=== PATIENT | female | born 1935 | race Hispanic/Latino ===

== ENCOUNTER 2016-12-22 19:50 | Inpatient (IN) | payer MEDICARE, OTHER ==
[2016-12-22 20:04] VITALS: BMI 32.8
[2016-12-22] MEDS ORDERED: Morphine 2 mg/ml ISec ONE (20:15)
[2016-12-22] MEDS ORDERED: Morphine 2 mg/ml ISec IVP STA ×2 (20:16→22:24)
[2016-12-22] MEDS: Sodium Chloride 0.9% 1,000 ML IV SCH (20:24)
--- NOTE | 2016-12-22 20:27 | ED PDOC ---
Arrival/HPI - General Chief Complaint: Back Pain Time Seen by Provider: 12/22/16 19:59 Historian: Patient - History of Present Illness Narrative History of Present Illness (Text): 12/22/16 20:23 Jazmyne Lauren is a 81 year old female, whose past medical history includes utero-vaginal prolapse, UTI, hypertension and hypothyroidism, presents to the emergency department for evaluation of intermittent left flank pain. Describes quality as a twisting sensation. Denies any history of back trauma, but states that she fell down two days prior sustaining abrasions to right knee and palomino. Denies fever, chills, headache, dizziness, chest pain, shortness of breath, nausea, vomiting, diarrhea, urinary symptoms or any other complaints at this time. Time/Duration: < week Symptom Onset: Gradual Symptom Course: Unchanged Severity Level: Mild Activities at Onset: Light Context: Home Past Medical History - Provider Review Nursing Documentation Reviewed: Yes - Infectious Disease Hx of Infectious Diseases: None - Tetanus Immunization Tetanus Immunization: Unknown - Cardiac Hx Cardiac Disorders: Yes - Pulmonary Hx Respiratory Tract Infection: Yes (chronic upper respiratory tract infection) - Neurological Hx Migraine: Yes - HEENT Hx HEENT Disorder: No - Renal Hx Renal Disorder: No - Endocrine/Metabolic Hx Hypothyroidism: Yes - Hematological/Oncological Other/Comment: "low immune system", fibroid tumors and fibrocystic breasts - Integumentary Hx Dermatological Disorder: No - Musculoskeletal/Rheumatological Hx Arthritis: Yes Hx Falls: No - Gastrointestinal Hx Gastrointestinal Disorders: Yes Hx Diverticulitis: Yes Hx Gastroesophageal Reflux: Yes Other/Comment: colitis, atrial gastritis, duodenitis, spasmatic colon - Genitourinary/Gynecological Hx Genitourinary Disorders: Yes Hx Urinary Tract Infection: Yes - Psychiatric Hx Psychophysiologic Disorder: No Hx Substance Use: No - Surgical History Hx Appendectomy: Yes (1951) Hx Cholecystectomy: Yes (1994) Other/Comment: tonsillectomy 1937 - Anesthesia Hx Anesthesia: Yes Hx Anesthesia Reactions: No Hx Malignant Hyperthermia: No - Suicidal Assessment Feels Threatened In Home Enviroment: No Family/Social History - Physician Review Nursing Documentation Reviewed: Yes Family/Social History: No Known Family HX Smoking Status: Never Smoked Hx Alcohol Use: No Hx Substance Use: No Hx Substance Use Treatment: No Allergies/Home Meds Allergies/Adverse Reactions: Allergies amitriptyline Allergy (Verified 12/22/16 20:13) RASH aspirin Allergy (Verified 12/22/16 20:13) RASH cephalexin Allergy (Verified 12/22/16 20:13) RASH ciprofloxacin Allergy (Verified 12/22/16 20:13) RASH gabapentin Allergy (Verified 12/22/16 20:13) RASH lactase [From Dairy Aid] Allergy (Verified 12/22/16 20:13) DIARRHEA omeprazole Allergy (Verified 12/22/16 20:13) RASH oxycodone Allergy (Verified 12/22/16 20:13) NAUSEA Penicillins Allergy (Verified 12/22/16 20:13) URTICARIA PORK Allergy (Verified 10/02/14 23:39) unknown shellfish derived Allergy (Verified 12/22/16 20:13) RASH tolterodine tartrate [From Detrol] Allergy (Verified 12/22/16 20:13) RASH tomato Allergy (Verified 12/22/16 20:13) RASH bee venom Allergy (Uncoded 12/22/16 20:13) RASH dust Allergy (Uncoded 10/02/14 23:39) unknown dyes Allergy (Uncoded 10/02/14 23:39) unknown grass Allergy (Uncoded 10/02/14 23:39) unknown mold Allergy (Uncoded 10/02/14 23:39) unknown nuts Allergy (Uncoded 12/22/16 20:13) ANGIOEDEMA pollen Allergy (Uncoded 10/02/14 23:39) unknown ragweed Allergy (Uncoded 10/02/14 23:39) unknown tape Allergy (Uncoded 12/22/16 20:13) RASH trees Allergy (Uncoded 10/02/14 23:39) unknown wool Allergy (Uncoded 10/02/14 23:39) RASH Home Medications: Home Meds Medication Instructions Recorded Confirmed Hydrochlorothiazide [HCTZ] 25 mg PO DAILY 10/02/14 03/30/15 Levothyroxine Sodium [Levothroid] 0.05 mg PO DAILY 10/02/14 03/30/15 Famotidine [Pepcid AC] 1 tab PO DAILY PRN 03/30/15 03/30/15 Review of Systems - Physician Review All systems were reviewed & negative as marked: Yes - Review of Systems Constitutional: Normal. absent: Fatigue, Fevers Respiratory: Normal. absent: SOB, Cough Cardiovascular: Normal. absent: Chest Pain Gastrointestinal: Normal. absent: Diarrhea, Nausea, Vomiting Musculoskeletal: Back Pain (left flank pian ), Other (right knee and palomino abrasions ) Psychiatric: Normal Physical Exam Vital Signs Reviewed: Yes Vital Signs Temp Pulse Resp BP 12/22/16 19:51 98.2 F 67 18 142/65 Temperature: Afebrile Blood Pressure: Normal Pulse: Regular Respiratory Rate: Normal Appearance: Positive for: Well-Appearing, Non-Toxic, Comfortable Pain Distress: None Mental Status: Positive for: Alert and Oriented X 3 - Systems Exam Head: Present: Atraumatic, Normocephalic Pupils: Present: PERRL Extroacular Muscles: Present: EOMI Conjunctiva: Present: Normal Neck: Present: Normal Range of Motion. No: MIDLINE TENDERNESS, Paraspinal Tenderness Respiratory/Chest: Present: Clear to Auscultation, Good Air Exchange. No: Respiratory Distress, Accessory Muscle Use Cardiovascular: Present: Regular Rate and Rhythm, Normal S1, S2. No: Murmurs Abdomen: Present: Normal Bowel Sounds. No: Tenderness, Distention, Peritoneal Signs Back: Present: CVA Tenderness (left cva tenderness ), Other (No dorsal spinal tenderness ). No: Midline Tenderness Upper Extremity: Present: Normal Inspection. No: Cyanosis, Edema Lower Extremity: Present: Normal Inspection, Other (healed abrasion to right lower palomino ). No: Edema Neurological: Present: GCS=15, CN II-XII Intact, Speech Normal Skin: Present: Warm, Dry, Normal Color. No: Rashes Psychiatric: Present: Alert, Oriented x 3, Normal Insight, Normal Concentration Medical Decision Making ED Course and Treatment: 12/22/16 20:32 Impression: A 81 year old female who presents to the emergency room for evaluation of left flank pain. Plan: -- CT abdomen and pelvis -- EKG -- labs -- Chest X-ray -- Morphine -- IV fluids -- Zofran -- Urinalysis -- Reassess and disposition Progress Notes: Reviewed EKG, sinus rhythm at [address]pm[address] LAHB. Non-specific ST/T wave changes. 12/22/16 21:05 Reviewed CXR, shows no active disease. 12/22/16 21:59 Reviewed radiology, CT Abdomen and Pelvis shows: Diverticulosis of the colon present. 12/22/16 23:[address] Ambrose, who is aware and agrees with plan. Accepts pt in to her service. Pt will go to [facility] observation for pyelonephritis. Requests Dr. Simon on consult. Pt is no acute distress. Discussed results and hospital observation with pt, who is aware and verbalizes understanding. - Lab Interpretations Lab Results: 12/22/16 20:25 12/22/16 20:25 Lab Results 12/22/16 22:40: Urine Color Yellow, Urine Appearance Clear, Urine pH 7.0, Ur Specific [place] 1.010, Urine Protein Negative, Urine Glucose (UA) Negative, Urine Ketones Negative, Urine Blood Trace-intact H, Urine Nitrate Positive H, Urine Bilirubin Negative, Urine Urobilinogen 0.2, Ur Leukocyte Esterase Moderate H, Urine RBC 5 - 10, Urine WBC 10 - 15, Ur Epithelial Cells Many, Urine Bacteria Small 12/22/16 20:25: WBC 6.8, RBC 4.54, Hgb 13.6, Hct 40.6, MCV 89.4, MCH 30.0, MCHC 33.5, RDW 13.8, Plt Count 254, MPV 10.6, PT 11.1, INR 1.03, APTT 27.5, Sodium 137, Potassium 3.9, Chloride 99, Carbon Dioxide 28, Anion Gap 14, BUN 28 H, Creatinine 1.1, Est GFR ( Amer) 57, Est GFR (Non-Af Amer) 47, Random Glucose 114 H, Calcium 10.0, Total Bilirubin 0.6, AST 27, ALT 19, Alkaline Phosphatase 109, Total Protein 8.5 H, Albumin 4.3, Globulin 4.2, Albumin/ Globulin Ratio 1.0 L 12/22/16 20:04: POC Glucose (mg/dL) 105 I have reviewed the lab results: Yes - RAD Interpretation Narrative RAD Interpretations (Text): CT Abdomen and Pelvis shows: Lower thorax: Dependent changes in the lung bases. Diffuse interstitial thickening present. ABDOMEN: Liver: Unremarkable for noncontrasted exam a. Gallbladder and bile ducts: Cholecystectomy clips. No ductal dilation. Pancreas: . No ductal dilation. Spleen: . No splenomegaly. Adrenals: . No mass. Kidneys and ureters: No obstructing stones. No hydronephrosis. Hypodensities in the kidneys continue present this total incompletely characterized. Stomach and bowel: Diverticulosis of the colon present. Appendix: No findings to suggest acute appendicitis. PELVIS: Bladder: . No stones. Reproductive: Unremarkable as visualized. ABDOMEN and PELVIS: Intraperitoneal space: Mild stranding of the upper mid mesenteric root, nonspecific. No free air. No significant fluid collection. fat Containing inguinal hernia. Bones/joints: No acute fracture. No dislocation. Vasculature: There are calcifications of the aorta present. No abdominal aortic aneurysm. Lymph nodes: Scattered mesenteric lymph nodes. IMPRESSION: Diverticulosis of the colon present. Radiology Orders: 12/22/16 20:14 ABD & PELVIS W/O PO OR IV CONT [CT] Stat 12/22/16 20:15 CHEST PORTABLE [RAD] Stat Group Product Manager: ED Physician - EKG Interpretation Interpreted by ED Physician: Yes Type: 12 lead EKG - Medication Orders Current Medication Orders: Acetaminophen (Tylenol 325mg Tab) 650 mg PO Q4H PRN PRN Reason: Pain, Mild (1-3) Stop: 12/23/16 10:00 Sodium Chloride (Sodium Chloride 0.9%) 1,000 mls @ 100 mls/hr IV .Q10H ROBERT Last Admin: 12/22/16 20:24 Dose: 100 MLS/HR eMAR Start Stop Document 12/22/16 20:24 WALTER (Rec: 12/22/16 20:24 WALTER [id number]) Intravenous Solution Start Date 12/22/16 Start Time 20:24 Aztreonam (Azactam 1 Gm) 100 mls @ 100 mls/hr IVPB STAT STA PRN Reason: Protocol Stop: 12/23/16 00:40 Discontinued Medications Sodium Chloride (Sodium Chloride 0.9%) 1,000 mls @ 999 mls/hr IV .Q1H1M STA Stop: 12/22/16 22:42 Last Admin: 12/22/16 22:27 Dose: 999 MLS/HR eMAR Start Stop Document 12/22/16 22:27 WALTER (Rec: 12/22/16 22:27 WALTER [id number]) Intravenous Solution Start Date 12/22/16 Start Time 22:27 End Date 12/22/16 End time 23:27 Total Infusion Time 60 Morphine Sulfate (Morphine) Confirm Administered Dose 2 mg .ROUTE .STK-MED ONE Stop: 12/22/16 20:16 Last Admin: 12/22/16 20:24 Dose: Morphine Sulfate (Morphine) 2 mg IVP STAT STA Stop: 12/22/16 20:17 Last Admin: 12/22/16 20:23 Dose: 2 MG MAR Pain Assessment Document 12/22/16 20:23 WALTER (Rec: 12/22/16 20:24 WALTER [id number]) Pain Reassessment Is this a pain reassessment? No IVP Administration Document 12/22/16 20:23 WALTER (Rec: 12/22/16 20:24 WALTER [id number]) Charges for Administration # of IVP Administrations 1 Morphine Sulfate (Morphine) 2 mg IVP STAT STA Stop: 12/22/16 22:25 Last Admin: 12/22/16 22:26 Dose: 2 MG MAR Pain Assessment Document 12/22/16 22:26 WALTER (Rec: 12/22/16 22:26 WALTER [id number]) Pain Reassessment Is this a pain reassessment? Yes IVP Administration Document 12/22/16 22:26 WALTER (Rec: 12/22/16 22:26 WALTER [id number]) Charges for Administration # of IVP Administrations 1 Ondansetron HCl (Zofran Inj) 4 mg IVP ONCE ONE Stop: 12/22/16 20:17 Last Admin: 12/22/16 20:28 Dose: 4 MG IVP Administration Document 12/22/16 20:28 WALTER (Rec: 12/22/16 20:28 WALTER [id number]) Charges for Administration # of IVP Administrations 1 - Scribe Statement The provider has reviewed the documentation as recorded by the Yaya Umana Provider Attestation: All medical record entries made by the Dylanibjermaine were at my direction and personally dictated by me. I have reviewed the chart and agree that the record accurately reflects my personal performance of the history, physical exam, medical decision making, and the department course for this patient. I have also personally directed, reviewed, and agree with the discharge instructions and disposition. Disposition/Present on Arrival - Present on Arrival Any Indicators Present on Arrival: No History of DVT/PE: No History of Uncontrolled Diabetes: No Urinary Catheter: No History of Decub. Ulcer: No History Surgical Site Infection Following: None - Disposition Have Diagnosis and Disposition been Completed?: Yes Diagnosis: Flank pain, Pyelonephritis Disposition: HOSPITALIZED Disposition Time: 00:10 Patient Plan: Observation Patient Problems: Current Active Problems Problem Status Diagnosed Flank pain Acute Pyelonephritis Acute Condition: GOOD Referrals: Sonal Mercado DO [Primary Care Provider] - Follow up with primary
[2016-12-22 21:17] LABS: BILIRUBIN,TOTAL 0.6 mg/dL (0.2-1.3); POTASSIUM 3.9 mmol/L (3.6-5.0); TOTAL PROTEIN 8.5 g/dL (5.8-8.3)
[2016-12-22 21:22] LABS: HEMATOCRIT 40.6 % (36.0-48.0); MEAN CELL VOLUME 89.4 fL (80.0-105.0); MEAN CORPUSCULAR HGB CONC 33.5 g/dl (31.0-37.0); MEAN PLATELET VOLUME 10.6 fl (7.0-11.0); RED CELL DISTRIBUTION WIDTH 13.8 % (11.5-14.5); WHITE BLOOD COUNT 6.8 10^3/ul (4.5-11.0)
[2016-12-22 21:38] LABS: INR 1.03 (0.93-1.08); PARTIAL THROMBOPLASTIN TIME 27.5 Seconds (23.7-30.8)
[2016-12-22] MEDS ORDERED: Sodium Chloride 0.9% 1,000 ML IV STA (21:42)
[2016-12-22 23:03] LABS: URINE BILIRUBIN NEGATIVE (NEGATIVE); URINE BLOOD TRACE-INTACT (NEGATIVE); URINE GLUCOSE (UA) NEGATIVE (NEGATIVE); URINE KETONE NEGATIVE (NEGATIVE); URINE LEUKOCYTE ESTERASE MODERATE Leu/uL (NEGATIVE); URINE PROTEIN NEGATIVE mg/dL (<30 mg/dL); URINE UROBILINOGEN 0.2 E.U./dL (<1 E.U./dL)
[2016-12-22 23:04] LABS: URINE APPEARANCE CLEAR (CLEAR); URINE COLOR YELLOW (YELLOW)
[2016-12-22 23:06] LABS: URINE BACTERIA SMALL (NEG); URINE EPITHELIAL CELLS MANY /hpf (0-5)
[2016-12-22] MEDS ORDERED: Aztreonam 1 Gm in NS 100mL 100 ML IVPB STA (23:41)
[2016-12-23] MEDS ORDERED: Aztreonam 1 Gm in NS 100mL 100 ML IVPB STA (00:36)
[2016-12-23] MEDS: Aztreonam 1 Gm in NS 100mL 100 ML IVPB SCH ×3 (06:49→21:37)
[2016-12-23] MEDS ORDERED: FAMOTIDINE PO PRN (07:10)
--- NOTE | 2016-12-23 07:27 | CT ---
PROCEDURE: CT Abdomen and Pelvis without intravenous or oral contrast HISTORY: left flank pain Relevant medical history: Bladder prolapse originally seen on the prior CT scan 10/02/2014. COMPARISON: 10/02/2014. TECHNIQUE: Technique Contiguous axial images of the abdomen and pelvis without intravenous or oral contrast. Radiation dose: Total exam DLP = mGy-cm. FINDINGS: LOWER THORAX: Unremarkable. LIVER: Unremarkable. GALLBLADDER AND BILE DUCTS: Status post cholecystectomy. No abnormality is seen in the gallbladder fossa. PANCREAS: Unremarkable. No ductal dilatation. SPLEEN: Unremarkable. No splenomegaly. ADRENALS: Unremarkable. KIDNEYS AND URETERS: Unremarkable. No hydronephrosis. BLADDER: Pessary device within the urinary bladder. No evidence of prolapse on the current study. REPRODUCTIVE: Unremarkable. APPENDIX: Unremarkable. Normal appendix. STOMACH AND BOWEL: Unremarkable. No obstruction. No gross mural thickening. Diverticulosis without an acute inflammatory component or other associated pathologic process. PERITONEUM: Unremarkable. No significant fluid collection. No free air. LYMPH NODES: Unremarkable. No enlarged lymph nodes. VASCULATURE: Unremarkable. No aortic aneurysm. BONES: No acute fracture. Scoliosis, secondary degenerative change at multiple levels. OTHER FINDINGS: None . IMPRESSION: No acute findings related to/accounting for the clinical presentation. No significant change compared to the prior study other than resolution of urinary bladder prolapse apparent on prior study Concordant results (preliminary interpretation) provided by [employer]. Procedure Completed: 21:13. Preliminary ([facility]) Report: Dictated and Authenticated: 21:57. Final Interpretation: 07:25. December 23, 2016.
--- NOTE | 2016-12-23 08:36 | RAD ---
HISTORY: back pain COMPARISON: No prior. FINDINGS: LUNGS: No active pulmonary disease. PLEURA: No significant pleural effusion identified, no pneumothorax apparent. CARDIOVASCULAR: Normal. OSSEOUS STRUCTURES: No significant abnormalities. VISUALIZED UPPER ABDOMEN: Normal. OTHER FINDINGS: None. IMPRESSION: No active disease.
[2016-12-23] MEDS: Sodium Chloride 0.9% 1,000 ML IV SCH (09:50)
[2016-12-23] MEDS: Levothyroxine 50 MCG TAB PO SCH (09:50)
[2016-12-23] MEDS ORDERED: Non Formulary Medication (Hydrochlorothiazide [Hctz] 25 MG) PO SCH (10:00)
[2016-12-23] MEDS ORDERED: Sodium Chloride 0.9% 1,000 ML IV SCH ×2 (11:32→21:53)
--- NOTE | 2016-12-23 13:52 | CARD ---
APPROVED REPORT EKG Measurement Heart [id number] <Conclusion> Sinus rhythm Pulmonary disease pattern Left anterior fascicular block Abnormal ECG
[2016-12-23] MEDS: metroNIDAZOLE IV 500 mg/100 ml 100 ML IVPB SCH ×2 (14:05→22:32)
--- NOTE | 2016-12-23 15:37 | CP.PCM.CON ---
History of Present Illness - History of Present Illness History of Present Illness: 81 year old female with PMH of uterine prolapse, history of UTI's, HTN, hypothyroidism, obesity with BMI 33 came in to the ED complaning of left back and flank pain since yesterday. She states that the pain is from the bottom of her left scapula to the the flank area, and it feels like "something is twisting." She described it as one of the worst pains of her life. She did have a fall about 2 days ago but mostly hit her right leg on the floor. She has occasional urinary frequency, no burning sensation on urination, no nausea or vomiting, no chest pain, no SOB, no fever or chills, no headache or dizziness, no rhinorrhea, no cough, no sore throat, no chest palpitations. She denies known ill contacts and has not traveled outside of [place] in the past 3 months. Infectious Diseases consult is requested to further evaluate and manage. Review of Systems - Review of Systems All systems: reviewed and no additional remarkable complaints except (as per HPI ) Past Patient History - Infectious Disease Hx of Infectious Diseases: None - Tetanus Immunizations Tetanus Immunization: Unknown - Past Social History Smoking Status: Never Smoked - CARDIAC Hx Cardiac Disorders: Yes - PULMONARY Hx Respiratory Tract Infection: Yes (chronic upper respiratory tract infection) - NEUROLOGICAL Hx Migraine: Yes - HEENT Hx HEENT Problems: No - RENAL Hx Chronic Kidney Disease: No - ENDOCRINE/METABOLIC Hx Hypothyroidism: Yes - HEMATOLOGICAL/ONCOLOGICAL Other/Comment: "low immune system", fibroid tumors and fibrocystic breasts - INTEGUMENTARY Hx Dermatological Problems: No - MUSCULOSKELETAL/RHEUMATOLOGICAL Hx Falls: No - GASTROINTESTINAL Hx Gastrointestinal Disorders: Yes Hx Diverticulitis: Yes Hx Gastroesophageal Reflux: Yes Other/Comment: colitis, atrial gastritis, duodenitis, spasmatic colon - GENITOURINARY/GYNECOLOGICAL Hx Genitourinary Disorders: Yes Hx Urinary Tract Infection: Yes - PSYCHIATRIC Hx Psychophysiologic Disorder: No Hx Substance Use: No - SURGICAL HISTORY Hx Appendectomy: Yes (1951) Hx Cholecystectomy: Yes (1994) Other/Comment: tonsillectomy 1937 - ANESTHESIA Hx Anesthesia: Yes Hx Anesthesia Reactions: No Hx Malignant Hyperthermia: No Meds Allergies/Adverse Reactions: Allergies Allergy/AdvReac Type Severity Reaction Status Date / Time amitriptyline Allergy RASH Verified 12/22/16 20:13 aspirin Allergy RASH Verified 12/22/16 20:13 cephalexin Allergy RASH Verified 12/22/16 20:13 ciprofloxacin Allergy RASH Verified 12/22/16 20:13 gabapentin Allergy RASH Verified 12/22/16 20:13 lactase [From Dairy Aid] Allergy DIARRHEA Verified 12/22/16 20:13 omeprazole Allergy RASH Verified 12/22/16 20:13 oxycodone Allergy NAUSEA Verified 12/22/16 20:13 Penicillins Allergy URTICARIA Verified 12/22/16 20:13 PORK Allergy unknown Verified 10/02/14 23:39 shellfish derived Allergy RASH Verified 12/22/16 20:13 tolterodine tartrate Allergy RASH Verified 12/22/16 20:13 [From Detrol] tomato Allergy RASH Verified 12/22/16 20:13 bee venom Allergy RASH Uncoded 12/22/16 20:13 dust Allergy unknown Uncoded 10/02/14 23:39 dyes Allergy unknown Uncoded 10/02/14 23:39 grass Allergy unknown Uncoded 10/02/14 23:39 mold Allergy unknown Uncoded 10/02/14 23:39 nuts Allergy ANGIOEDEMA Uncoded 12/22/16 20:13 pollen Allergy unknown Uncoded 10/02/14 23:39 ragweed Allergy unknown Uncoded 10/02/14 23:39 tape Allergy RASH Uncoded 12/22/16 20:13 trees Allergy unknown Uncoded 10/02/14 23:39 wool Allergy RASH Uncoded 10/02/14 23:39 - Medications Medications: Current Medications Acetaminophen (Tylenol 325mg Tab) 650 mg PO Q4H PRN PRN Reason: Pain, Mild (1-3) Stop: 12/23/16 10:00 Sodium Chloride (Sodium Chloride 0.9%) 1,000 mls @ 100 mls/hr IV .Q10H ROBERT Last Admin: 12/22/16 20:24 Dose: 100 mls/hr Physical Exam - Constitutional Appears: Non-toxic, No Acute Distress - Head Exam Head Exam: NORMAL INSPECTION - ENT Exam ENT Exam: Mucous Membranes Moist - Neck Exam Neck exam: Negative for: Lymphadenopathy, Meningismus - Respiratory Exam Respiratory Exam: Decreased Breath Sounds - Cardiovascular Exam Cardiovascular Exam: +S1, +S2 - GI/Abdominal Exam GI & Abdominal Exam: Soft. absent: Tenderness - Back Exam Back exam: absent: CVA tenderness (L), CVA tenderness (R) Results - Vital Signs Recent Vital Signs: Last Vital Signs Temp 97.7 F 12/23/16 01:41 Pulse 68 12/23/16 01:41 Resp 18 12/23/16 01:41 BP 110/86 12/23/16 01:41 Pulse Ox 98 12/23/16 01:41 - Labs Result Diagrams: 12/22/16 20:25 12/22/16 20:25 Assessment & Plan - Assessment and Plan (Free Text) Plan: Assessment consider urinary tract infection, R/O nephrolithiasis, R/O transient sigmoid volvulus uterine prolapse history of UTI's HTN hypothyroidism obesity with BMI [address] abdomen and pelvis which did not show acute pathology; will monitor clinically, follow up blood, and urine cx and started patient on Azactam and Flagyl
--- NOTE | 2016-12-23 22:57 | HP ---
HISTORY OF PRESENT ILLNESS: The patient is 81 years old, known to me from previous admissions. The patient states yesterday she developed pain in her left mid back area, just below the wing of her mo nitoring of her scapula. Initially, she ignored it, could be back pain. She felt the pain squeezing and intermittent but by the late afternoon it got worse, so she came to Emergency Room for further e valuation. She says she did have chills, but no fever, she took 3 to 4 blankets but was unable to b reak her chills. She did have flank pain radiating towards her left flank. Denies any nausea. Does complain of decreased appetite. Did have some odor in the urine, but no hematuria, no diarrhea. PAST MEDICAL HISTORY: Significant for: 1. Hypertension. 2. Morbid obesity. 3. Hypothyroidism. 4. History of uterine prolapse. 5. Hyperlipidemia.. ALLERGIES: SHE IS ALLERGIC TO MULTIPLE MEDICATIONS INCLUDING 1. AMITRIPTYLINE. 2. ASPIRIN. 3. KEFLEX. 4. CIPROFLOXACIN. 5. GABAPENTIN. 6. LACTOSE. 7. PENICILLIN. 8. PORK. 9. SHELLFISH. 10. DETROL. 11. TOMATOES. 12. BEE VENOM. 13. DUST. 14. DYES. 15. GRASS. 16. MOLD. 17. NUTS. 18. POLLEN. 19. RAGWEED. 20. TAPE. 21. TREE MEDICATION AT HOME: She is on levothyroxine 50 mcg daily, hydrochlorothiazide 25 daily, famotidine 2 0 mg twice a day. SOCIAL HISTORY: She lives with her son who is in a 2-family house, and she lives downstairs. REVIEW OF SYSTEMS: Significant for back pain, although is feeling better since she came in. PHYSICAL EXAMINATION: GENERAL: She is awake and alert, communicative. VITAL SIGNS: She is afebrile, pulse 67, respirations 18, blood pressure 133/62. LUNGS: Bilateral fair airflow, no rhonchi or crackle. HEART: S1, S2 audible. No murmur. ABDOMEN: Soft, obese, nontender, no rebound, no guarding. NEUROLOGIC: She is awake, alert, and communicative. LABORATORY DATA: WBC 6.8, hemoglobin 13, hematocrit 40, platelets 254. PT 11.1, INR 1.03, PTT 27.5. Sodium 137, potassium 3.9, chloride 99, CO2 28, BUN 28, creatinine 1.1, blood sugar 114. LFTs are within normal limits. Urine shows positive nitrites and moderate leukocytes, blood cultures are pend ing. She had CT scan of the abdomen and pelvis done that shows no acute finding related to her clini devin presentation; however, bladder shows pessary device within the urinary bladder. ASSESSMENT: 1. Pyelonephritis. 2. Urinary tract infection. 3. Degenerative disk disease. 4. Hypertension. 5. Hyperlipidemia. 6. Hypothyroidism. 7. Peptic ulcer disease. PLAN: Currently, the patient is on Azactam because of multiple allergies. She is on metronidazole. I will give her famotidine. Cut down her IV fluids to 50 mL per hour, since her oral intake is bett er. I will order follow up CBC and CMP in a.m. and adjust flow according to that. Norberto Ambrose MD cc: [id number] TT: 12/23/2016 22:56:41 ln
[2016-12-24] MEDS: metroNIDAZOLE IV 500 mg/100 ml 100 ML IVPB SCH (05:25)
[2016-12-24] MEDS: Aztreonam 1 Gm in NS 100mL 100 ML IVPB SCH ×3 (06:28→21:07)
[2016-12-24 06:55] LABS: BILIRUBIN,TOTAL 0.4 mg/dL (0.2-1.3); CALCIUM 8.6 mg/dL (8.4-10.5); POTASSIUM 4.1 mmol/L (3.6-5.0); TOTAL PROTEIN 6.6 g/dL (5.8-8.3)
[2016-12-24] MEDS: Levothyroxine 50 MCG TAB PO SCH (09:57)
--- NOTE | 2016-12-24 11:55 | PN ---
DATE: 12/24/2016 SUBJECTIVE: The patient has no complaints of any chest pain or shortness of breath, no headaches or dizziness. PHYSICAL EXAMINATION: VITAL SIGNS: Temperature is 97.7, pulse of 59, blood pressure 135/63, respirations 20, O2 saturation 94%. GENERAL: The patient comfortable, in no acute distress. HEENT: Anicteric sclerae. Moist mucosa. NECK: No JVD or adenopathy. CARDIAC: S1/S2. No murmurs. No rubs. Regular. RESPIRATORY: Clear to auscultation bilaterally. No wheezes, rales, or rhonchi. Good air entry. ABDOMEN: Bowel sounds are positive, soft, nontender, and nondistended. EXTREMITIES: No edema. Has 1+ pulses. ASSESSMENT: 1. Pyelonephritis. 2. Urinary tract infection. 3. Degenerative joint disease. 4. Hypertension. 5. Dyslipidemia. 6. Hypothyroidism. 7. Peptic ulcer disease. PLAN: The patient is currently on aztreonam because she has multiple allergies. She is on Synthroid for hypothyroidism. The patient has urine cultures that are positive for gram-negative rods. The f inal results are pending. She takes Tylenol as needed for pain. She is on a liquid diet. Joshua White MD cc: [id number] TT: 12/24/2016 11:54:26 Confirmation # [id number] Dictation # [id number]
--- NOTE | 2016-12-24 17:05 | CP.PCM.PN ---
Subjective - Date & Time of Evaluation Date of Evaluation: 12/24/16 Time of Evaluation: 11:20 - Subjective Subjective: Patient is comfortable, not in distress, no fevers, no flank pain currently. Objective - Vital Signs/Intake and Output Vital Signs (last 24 hours): Temp Pulse Resp BP Pulse Ox 97.7 F 69 20 135/63 94 L 12/24/16 07:30 12/24/16 07:30 12/24/16 07:30 12/24/16 07:30 12/24/16 07:30 Intake and Output: 12/24/16 12/24/16 06:59 18:59 Intake Total 240 Balance 240 - Medications Medications: Current Medications Acetaminophen (Tylenol 325mg Tab) 650 mg PO Q6H PRN PRN Reason: Headache Last Admin: 12/23/16 17:03 Dose: 650 mg Famotidine (Pepcid) 20 mg PO DAILY PRN PRN Reason: GI DISTRESS Aztreonam (Azactam 1 Gm) 100 mls @ 100 mls/hr IVPB Q8 [facility]ERT PRN Reason: Protocol Stop: 12/30/16 06:31 Last Admin: 12/24/16 06:28 Dose: 100 mls/hr Levothyroxine Sodium (Synthroid) 50 mcg PO DAILY [facility]ERT Last Admin: 12/23/16 09:50 Dose: 50 mcg - Labs Labs: 12/24/16 04:30 PT 11.1 Seconds (9.9-11.8) 12/22/16 20:25 INR 1.03 (0.93-1.08) 12/22/16 20:25 APTT 27.5 Seconds (23.7-30.8) 12/22/16 20:25 - Constitutional Appears: Non-toxic, No Acute Distress - Head Exam Head Exam: NORMAL INSPECTION - ENT Exam ENT Exam: Mucous Membranes Moist - Neck Exam Neck Exam: absent: Lymphadenopathy, Meningismus - Respiratory Exam Respiratory Exam: Decreased Breath Sounds - Cardiovascular Exam Cardiovascular Exam: +S1, +S2 - GI/Abdominal Exam GI & Abdominal Exam: Soft. absent: Tenderness Assessment and Plan - Assessment and Plan (Free Text) Plan: Assessment consider urinary tract infection, with no evidence of nephrolithiasis uterine prolapse history of UTI's HTN hypothyroidism obesity with BMI [address] abdomen and pelvis which did not show acute pathology; continue Azactam (day 2) pending identification and sensitivities of the gram negative bacilli in the urine Will follow clinically
[2016-12-25] MEDS: Aztreonam 1 Gm in NS 100mL 100 ML IVPB SCH ×3 (05:34→21:18)
[2016-12-25] MEDS: Levothyroxine 50 MCG TAB PO SCH (10:01)
[2016-12-25] MEDS: POLYETHYLENE GLYCOL 3350 17 GM/Dose PACKET PO SCH (13:32)
--- NOTE | 2016-12-25 16:49 | CP.PCM.PN ---
Subjective - Date & Time of Evaluation Date of Evaluation: 12/25/16 Time of Evaluation: 12:05 - Subjective Subjective: Patient is comfortable on a chair, no fevers, no diarrhea, not in distress, no flank pain currently although the left side is still a little sore. Objective - Vital Signs/Intake and Output Vital Signs (last 24 hours): Temp Pulse Resp BP Pulse Ox 97.7 F 65 20 129/74 95 12/25/16 07:30 12/25/16 07:30 12/25/16 07:30 12/25/16 07:30 12/25/16 07:30 Intake and Output: 12/25/16 12/25/16 06:59 18:59 Intake Total 240 Balance 240 - Medications Medications: Current Medications Acetaminophen (Tylenol 325mg Tab) 650 mg PO Q6H PRN PRN Reason: Headache Last Admin: 12/24/16 15:00 Dose: 650 mg Docusate Sodium (Colace) 100 mg PO BID ROBERT Famotidine (Pepcid) 20 mg PO DAILY PRN PRN Reason: GI DISTRESS Aztreonam (Azactam 1 Gm) 100 mls @ 100 mls/hr IVPB Q8 ROBERT PRN Reason: Protocol Stop: 12/30/16 06:31 Last Admin: 12/25/16 05:34 Dose: 100 mls/hr Levothyroxine Sodium (Synthroid) 50 mcg PO DAILY [facility] Last Admin: 12/25/16 10:01 Dose: 50 mcg Polyethylene Glycol (Miralax) 17 gm PO DAILY ROBERT - Labs Labs: PT 11.1 Seconds (9.9-11.8) 12/22/16 20:25 INR 1.03 (0.93-1.08) 12/22/16 20:25 APTT 27.5 Seconds (23.7-30.8) 12/22/16 20:25 - Constitutional Appears: Non-toxic, No Acute Distress - Head Exam Head Exam: NORMAL INSPECTION - Neck Exam Neck Exam: absent: Lymphadenopathy, Meningismus - Respiratory Exam Respiratory Exam: Decreased Breath Sounds - Cardiovascular Exam Cardiovascular Exam: +S1, +S2 - GI/Abdominal Exam GI & Abdominal Exam: Soft. absent: Tenderness Assessment and Plan - Assessment and Plan (Free Text) Plan: Assessment urinary tract infection with E. coli, with no evidence of nephrolithiasis uterine prolapse history of UTI's HTN hypothyroidism obesity with BMI [address] abdomen and pelvis which did not show acute pathology; continue Azactam (day 3) - we are unable to switch to PO alternatives because of her medicine allergies, and she has also explicitly stated that she has tried Bactrim before which has led to severe itching Will follow clinically
--- NOTE | 2016-12-25 19:17 | PN ---
DATE: 12/25/2016 SUBJECTIVE: The patient is an 81-year-old, seen and examined sitting in chair. Seems to be comforta ble. Complained of wound on the left palomino and uncomfortable. Otherwise, back pain is better. PHYSICAL EXAMINATION: VITAL SIGNS: She is afebrile, pulse 64, respirations 18, blood pressure 127/67. LUNGS: Bilateral good airflow. No rhonchi or crackle. HEART: S1, S2 audible. ABDOMEN: Soft, obese, nontender, no rebound, no guarding. NEUROLOGIC: She is awake and alert, communicative. Moves all extremities. Has generalized weakness . She has 2 scabbed ulcers on her left palomino. LABORATORY EXAMINATION: There is no new lab available today. However, her microbiology shows she cobb s Escherichia coli urinary tract infection. Blood cultures are negative. Escherichia coli is sensit yelena to Rocephin; however, she IS ALLERGIC TO PENICILLIN, so she will be maintained on Azactam. ASSESSMENT: 1. Escherichia coli urinary tract infection. 2. Pyelonephritis. 3. Degenerative disk disease. 4. Hypertension. 5. Hypothyroidism. 6. Morbid obesity. 7. History of uterine prolapse. PLAN: To continue her Azactam. Since there is no oral formulation available, the patient needs to c omplete her course of antibiotics, so I will request for TCU evaluation since tonight is going to be the 3rd night and she will be transferred to TCU after 3 overnights. Will reevaluate the patient in the a.m. Norberto Ambrose MD cc: [phone] TT: 12/25/2016 19:16:45 Confirmation # [id number] Dictation # [id number]
[2016-12-26] MEDS: Aztreonam 1 Gm in NS 100mL 100 ML IVPB SCH ×3 (05:44→21:22)
[2016-12-26] MEDS: Levothyroxine 50 MCG TAB PO SCH (09:59)
[2016-12-26] MEDS: POLYETHYLENE GLYCOL 3350 17 GM/Dose PACKET PO SCH (09:59)
[2016-12-26] MEDS ORDERED: TraMADol/Apap 37.5/325 mg Tab PO PRN (12:56)
--- NOTE | 2016-12-26 13:15 | DS ---
The patient is 17-vbeax[age]upy, seen and examined, sitting in chair, seems to be comfortable, still has back pain, no weakness, no numbness, no urinary symptoms, no nausea or vomiting, no diarrhea. PHYSICAL EXAMINATION: VITAL SIGNS: She is afebrile, pulse 77, respirations 18, blood pressure 129/62. LUNGS: Bilateral good airflow, no rhonchi or crackle. HEART: S1, S2 audible. No murmur. ABDOMEN: Soft, nontender, no rebound, no guarding. NEUROLOGIC: She does have paraspinal discomfort in the lower thoracic to upper lumbar area. LABORATORY EXAM: Her urine is positive for E. coli and she is sensitive to penicillin and derivative , but PATIENT IS ALLERGIC TO PENICILLIN. ASSESSMENT: 1. Escherichia coli urinary tract infection. 2. Back pain. 3. Degenerative disk disease. 4. Hypothyroidism. PLAN: TCU evaluation has been requested. The patient will probably be transferred today. We will c ontinue her on Azactam. She has scab on her right palomino that will require Bactroban gauze dressing. Dr. Garcia has been consulted for her back problem. I will order for Lidoderm patch for the back an d start her on tramadol as needed for pain. The patient will be transferred to TCU today once bed is available. Norberto Ambrose MD cc: [phone] TT: 12/26/2016 13:14:44 adán
[2016-12-26] MEDS: Lidocaine 5% Patch TD SCH (14:06)
--- NOTE | 2016-12-26 16:26 | CP.PCM.PN ---
Subjective - Date & Time of Evaluation Date of Evaluation: 12/26/16 Time of Evaluation: 11:10 - Subjective Subjective: Comfortable, not in distress, afebrile, less pain in the left flank, no diarrhea. Objective - Vital Signs/Intake and Output Vital Signs (last 24 hours): Temp Pulse Resp BP Pulse Ox 98.2 F 77 18 129/62 93 L 12/26/16 07:30 12/26/16 07:30 12/26/16 07:30 12/26/16 07:30 12/26/16 07:30 Intake and Output: 12/26/16 12/26/16 06:59 18:59 Intake Total 780 Balance 780 - Medications Medications: Current Medications Acetaminophen (Tylenol 325mg Tab) 650 mg PO Q6H PRN PRN Reason: Headache Last Admin: 12/24/16 15:00 Dose: 650 mg Docusate Sodium (Colace) 100 mg PO BID [facility] Last Admin: 12/26/16 09:59 Dose: 100 mg Famotidine (Pepcid) 20 mg PO DAILY PRN PRN Reason: GI DISTRESS Aztreonam (Azactam 1 Gm) 100 mls @ 100 mls/hr IVPB Q8 ROBERT PRN Reason: Protocol Stop: 12/30/16 06:31 Last Admin: 12/26/16 05:44 Dose: 100 mls/hr Levothyroxine Sodium (Synthroid) 50 mcg PO DAILY [facility] Last Admin: 12/26/16 09:59 Dose: 50 mcg Mupirocin (Bactroban Ointment) 0 gm TOP BID [facility] Last Admin: 12/26/16 09:59 Dose: 1 appl Polyethylene Glycol (Miralax) 17 gm PO DAILY [facility] Last Admin: 12/26/16 09:59 Dose: 17 gm - Labs Labs: PT 11.1 Seconds (9.9-11.8) 12/22/16 20:25 INR 1.03 (0.93-1.08) 12/22/16 20:25 APTT 27.5 Seconds (23.7-30.8) 12/22/16 20:25 - Constitutional Appears: Non-toxic, No Acute Distress - Head Exam Head Exam: NORMAL INSPECTION - ENT Exam ENT Exam: Mucous Membranes Moist - Neck Exam Neck Exam: absent: Lymphadenopathy, Meningismus - Respiratory Exam Respiratory Exam: Decreased Breath Sounds - Cardiovascular Exam Cardiovascular Exam: +S1, +S2 - GI/Abdominal Exam GI & Abdominal Exam: Soft. absent: Tenderness Assessment and Plan - Assessment and Plan (Free Text) Plan: Assessment urinary tract infection with E. coli, with no evidence of nephrolithiasis uterine prolapse history of UTI's HTN hypothyroidism obesity with BMI [address] abdomen and pelvis which did not show acute pathology; continue Azactam (day 4) - we are unable to switch to PO alternatives because of her medicine allergies, and she has also explicitly stated that she has tried Bactrim before which has led to severe itching; target 7-10 days of therapy Will follow clinically
[2016-12-26 16:35] VITALS: RESP 20
--- NOTE | 2016-12-26 19:35 | CON ---
DATE: 12/26/2016 LOCATION: 572, bed 2. REQUESTING PHYSICIAN: Norberto Ambrose MD. REASON FOR CONSULT: Left-sided low back pain. HISTORY OF PRESENT ILLNESS: The patient is a pleasant 81-year-old female who was admitted to [facility] complaining of left back and left flank pain. She denied any pain pablo oting down to the lower extremity, and most of her pain was localized to the left side of her lower b ack. She felt like something twisting in her lower back. She denied any nausea, vomiting, diarrhea, abdominal pain. She denied any chest pain. She denied any palpitation. Her visual analog scale on today's evaluation is 5/10. PAST MEDICAL HISTORY: Hypertension, hypothyroidism, obesity, history of urinary tract infection, [place] prolapse. SOCIAL HISTORY: She denied any smoking, alcohol intake, or any illicit drug abuse. PAST SURGICAL HISTORY: History of appendectomy, cholecystectomy. ALLERGIES: SHE HAS ALLERGIES TO AMITRIPTYLINE, ASPIRIN, CEPHALEXIN, CIPROFLOXACIN, GABAPENTIN, LACTA SE, OMEPRAZOLE, OXYCODONE, PENICILLIN, SHELLFISH, PORK, TOMATO, BEE VENOM, DUST, DYES, GRASS, MOLD, N UTS, POLLEN, RAGWEED, TAPE, TREES, WOOL. ON REVIEW OF SYSTEMS: A 14-point review of systems were negative except what is mentioned in the his tory of present illness. ON PHYSICAL EXAMINATION: CONSTITUTIONAL: She is sitting in chair in no acute distress. HEENT: Normocephalic, atraumatic. Extraocular muscles intact. LUNGS: Clear to auscultation bilaterally. CARDIOVASCULAR: S1, S2 is normal. ABDOMEN: Soft, nontender, nondistended. NEUROMUSCULAR EXAMINATION: She is alert, awake, and oriented x 3, concentrates very well. Cranial n erves II-XII grossly intact. Coordination is grossly intact. There is tenderness over left costover tebral angle. There is tenderness over left thoracolumbar paraspinal muscle with tightness of the mu scle. Straight leg raising test is negative bilaterally. CT scan abdomen and pelvis did not show any acute pathology. ASSESSMENT: Left-sided low back pain, history of kidney stones also. RECOMMENDATIONS: 1. Lidoderm patches to apply. 2. Zanaflex 2 mg tablets to take at bedtime for muscle spasms. 3. The patient to schedule appointment the office upon discharge. Thank you very much for your kind consultation. Henrry Garcia MD cc:Norberto Ambrose MD [phone] TT: 12/26/2016 19:34:19 Confirmation # [id number] Dictation # [id number]
[2016-12-27] MEDS: Aztreonam 1 Gm in NS 100mL 100 ML IVPB SCH ×2 (05:24→14:16)
[2016-12-27 07:55] VITALS: BP 140/65; PULSE 61; TEMP 97.4; O2SAT 97
[2016-12-27] MEDS: Lidocaine 5% Patch TD SCH (09:59)
[2016-12-27] MEDS: POLYETHYLENE GLYCOL 3350 17 GM/Dose PACKET PO SCH (09:59)
[2016-12-27] MEDS: Levothyroxine 50 MCG TAB PO SCH (10:00)
--- NOTE | 2016-12-27 12:05 | CP.PCM.CON ---
<MgiueGinger - Last Filed: 12/27/16 12:00> History of Present Illness - History of Present Illness History of Present Illness: 81 year old female with PMH of uterine prolapse, history of UTI's, HTN, hypothyroidism, obesity with BMI 33 admitted yesterday for left back and flank pain. Patient was seen at bedside after podiatry consultation was requested. Patient states that a week ago she was walking up stairs and banged the front of her palomino by her ankle against the stairs and it causes a bruise and a break in the skin. Patient states its very painful upon palpation. Patient denies any other trauma or pedal complaints. Patient denies n/f/v/c/d/sob. Review of Systems - Constitutional Constitutional: As Per HPI Past Patient History - Infectious Disease Hx of Infectious Diseases: None - Tetanus Immunizations Tetanus Immunization: Unknown - Past Social History Smoking Status: Never Smoked - CARDIAC Hx Cardiac Disorders: Yes - PULMONARY Hx Respiratory Tract Infection: Yes (chronic upper respiratory tract infection) - NEUROLOGICAL Hx Migraine: Yes - HEENT Hx HEENT Problems: No - RENAL Hx Chronic Kidney Disease: No - ENDOCRINE/METABOLIC Hx Hypothyroidism: Yes - HEMATOLOGICAL/ONCOLOGICAL Other/Comment: "low immune system", fibroid tumors and fibrocystic breasts - INTEGUMENTARY Hx Dermatological Problems: No - MUSCULOSKELETAL/RHEUMATOLOGICAL Hx Falls: No - GASTROINTESTINAL Hx Gastrointestinal Disorders: Yes Hx Diverticulitis: Yes Hx Gastroesophageal Reflux: Yes Other/Comment: colitis, atrial gastritis, duodenitis, spasmatic colon - GENITOURINARY/GYNECOLOGICAL Hx Genitourinary Disorders: Yes Hx Urinary Tract Infection: Yes - PSYCHIATRIC Hx Psychophysiologic Disorder: No Hx Substance Use: No - SURGICAL HISTORY Hx Appendectomy: Yes (1951) Hx Cholecystectomy: Yes (1994) Other/Comment: tonsillectomy 1937 - ANESTHESIA Hx Anesthesia: Yes Hx Anesthesia Reactions: No Hx Malignant Hyperthermia: No Meds Allergies/Adverse Reactions: Allergies Allergy/AdvReac Type Severity Reaction Status Date / Time amitriptyline Allergy RASH Verified 12/27/16 16:53 aspirin Allergy RASH Verified 12/27/16 16:53 cephalexin Allergy RASH Verified 12/27/16 16:53 ciprofloxacin Allergy RASH Verified 12/27/16 16:53 gabapentin Allergy RASH Verified 12/27/16 16:53 lactase [From [facility]] Allergy DIARRHEA Verified 12/27/16 16:53 omeprazole Allergy RASH Verified 12/27/16 16:53 oxycodone Allergy NAUSEA Verified 12/27/16 16:53 Penicillins Allergy URTICARIA Verified 12/27/16 16:53 PORK Allergy unknown Verified 12/27/16 16:53 shellfish derived Allergy RASH Verified 12/27/16 16:53 tolterodine tartrate Allergy RASH Verified 12/27/16 16:53 [From [facility]] tomato Allergy RASH Verified 12/27/16 16:53 bee venom Allergy RASH Uncoded 12/27/16 16:53 dust Allergy unknown Uncoded 12/27/16 16:53 dyes Allergy unknown Uncoded 12/27/16 16:53 grass Allergy unknown Uncoded 12/27/16 16:53 mold Allergy unknown Uncoded 12/27/16 16:53 nuts Allergy ANGIOEDEMA Uncoded 12/27/16 16:53 pollen Allergy unknown Uncoded 12/27/16 16:53 ragweed Allergy unknown Uncoded 12/27/16 16:53 tape Allergy RASH Uncoded 12/27/16 16:53 trees Allergy unknown Uncoded 12/27/16 16:53 wool Allergy RASH Uncoded 12/27/16 16:53 - Medications Medications: Current Medications Acetaminophen (Tylenol 325mg Tab) 650 mg PO Q6H PRN PRN Reason: Headache Last Admin: 12/26/16 21:23 Dose: 650 mg Docusate Sodium (Colace) 100 mg PO BID [facility] Last Admin: 12/27/16 09:59 Dose: 100 mg Famotidine (Pepcid) 20 mg PO DAILY PRN PRN Reason: GI DISTRESS Aztreonam (Azactam 1 Gm) 100 mls @ 100 mls/hr IVPB Q8 [facility] PRN Reason: Protocol Stop: 12/30/16 06:31 Last Admin: 12/27/16 05:24 Dose: 100 mls/hr Levothyroxine Sodium (Synthroid) 50 mcg PO DAILY [facility] Last Admin: 12/27/16 10:00 Dose: 50 mcg Lidocaine (Lidoderm) 1 ea TD DAILY [facility] Last Admin: 12/27/16 09:59 Dose: 1 ea Mupirocin (Bactroban Ointment) 0 gm TOP BID [facility] Last Admin: 12/27/16 10:01 Dose: 1 appl Polyethylene Glycol (Miralax) 17 gm PO DAILY [facility] Last Admin: 12/27/16 09:59 Dose: Not Given Tizanidine HCl (Zanaflex) 2 mg PO HS [facility] Last Admin: 12/26/16 21:23 Dose: 2 mg Tramadol/Acetaminophen (Ultracet 37.5/325 Mg) 1 tab PO Q6H PRN PRN Reason: Pain, moderate (4-7) Physical Exam - Constitutional Appears: Well, Non-toxic, No Acute Distress - Extremities Exam Additional comments: Vasc: lightly palpable DP pulses, nonpalpable PT pulses, CFT < 3 sec to all digits, TG wnl Neuro: grossly diminished derm: mild edema, mild erythema, superficial scab formation with underlying hematoma on the anterior palomino of right leg, no acute clinical signs of infection , no drainage, no purulence, no active bleeding ortho: pain on palpation of anterior palomino right leg - Neurological Exam Neurological exam: Alert, Oriented x3 - Psychiatric Exam Psychiatric exam: Normal Affect, Normal Mood Results - Vital Signs Recent Vital Signs: Last Vital Signs Temp 97.4 F L 12/27/16 07:54 Pulse 61 12/27/16 07:54 Resp 20 12/27/16 07:54 BP 140/65 12/27/16 07:54 Pulse Ox 97 12/27/16 07:54 - Labs Result Diagrams: 12/22/16 20:25 12/24/16 04:30 Assessment & Plan - Assessment and Plan (Free Text) Assessment: 81 y/o female seen at bedside with attending Dr. Palumbo for superficial abrasions to right anterior palomino secondary to trauma Plan: patient evaluated and seen at bedside with attending Dr. Palumbo labs and vitals reviewed applied bactroban, optifoam to right leg X rays of right ankle ordered podiatry will continue to monitor while patient remains in house <Juan Palumbo - Last Filed: 12/28/16 07:46> Results - Vital Signs Recent Vital Signs: Last Vital Signs Temp 97.4 F L 12/27/16 07:54 Pulse 61 12/27/16 07:54 Resp 20 12/27/16 07:54 BP 140/65 12/27/16 07:54 Pulse Ox 97 12/27/16 07:54 - Labs Result Diagrams: 12/22/16 20:25 12/24/16 04:30 Attending/Attestation - Attestation I have personally seen and examined this patient.: Yes I have fully participated in the care of the patient.: Yes
--- NOTE | 2016-12-27 13:33 | CP.PCM.PN ---
Subjective - Date & Time of Evaluation Date of Evaluation: 12/27/16 Time of Evaluation: 11:05 - Subjective Subjective: Comfortable in bed, not in distress, no fevers, no abdominal or flank pain, no dysuria. Objective - Vital Signs/Intake and Output Vital Signs (last 24 hours): Temp Pulse Resp BP Pulse Ox 97.4 F L 61 20 140/65 97 12/27/16 07:54 12/27/16 07:54 12/27/16 07:54 12/27/16 07:54 12/27/16 07:54 Intake and Output: 12/27/16 12/27/16 06:59 18:59 Intake Total 860 Balance 860 - Medications Medications: Current Medications Acetaminophen (Tylenol 325mg Tab) 650 mg PO Q6H PRN PRN Reason: Headache Last Admin: 12/26/16 21:23 Dose: 650 mg Docusate Sodium (Colace) 100 mg PO BID [facility] Last Admin: 12/27/16 09:59 Dose: 100 mg Famotidine (Pepcid) 20 mg PO DAILY PRN PRN Reason: GI DISTRESS Aztreonam (Azactam 1 Gm) 100 mls @ 100 mls/hr IVPB Q8 ROBERT PRN Reason: Protocol Stop: 12/30/16 06:31 Last Admin: 12/27/16 05:24 Dose: 100 mls/hr Levothyroxine Sodium (Synthroid) 50 mcg PO DAILY [facility] Last Admin: 12/27/16 10:00 Dose: 50 mcg Lidocaine (Lidoderm) 1 ea TD DAILY [facility] Last Admin: 12/27/16 09:59 Dose: 1 ea Mupirocin (Bactroban Ointment) 0 gm TOP BID [facility] Last Admin: 12/27/16 10:01 Dose: 1 appl Polyethylene Glycol (Miralax) 17 gm PO DAILY [facility] Last Admin: 12/27/16 09:59 Dose: Not Given Tizanidine HCl (Zanaflex) 2 mg PO HS [facility] Last Admin: 12/26/16 21:23 Dose: 2 mg Tramadol/Acetaminophen (Ultracet 37.5/325 Mg) 1 tab PO Q6H PRN PRN Reason: Pain, moderate (4-7) - Labs Labs: PT 11.1 Seconds (9.9-11.8) 12/22/16 20:25 INR 1.03 (0.93-1.08) 12/22/16 20:25 APTT 27.5 Seconds (23.7-30.8) 12/22/16 20:25 - Constitutional Appears: Non-toxic, No Acute Distress - Head Exam Head Exam: NORMAL INSPECTION - ENT Exam ENT Exam: Mucous Membranes Moist - Neck Exam Neck Exam: absent: Lymphadenopathy, Meningismus - Respiratory Exam Respiratory Exam: Decreased Breath Sounds - Cardiovascular Exam Cardiovascular Exam: +S1, +S2 - GI/Abdominal Exam GI & Abdominal Exam: Soft. absent: Tenderness Assessment and Plan - Assessment and Plan (Free Text) Plan: Assessment urinary tract infection with E. coli, with no evidence of nephrolithiasis, clinically improving uterine prolapse history of UTI's HTN hypothyroidism obesity with BMI [address] abdomen and pelvis which did not show acute pathology; continue Azactam (day 5) - we are unable to switch to PO alternatives because of her medicine allergies, and she has also explicitly stated that she has tried Bactrim before which has led to severe itching; our target is 7-10 days of therapy Will continue to follow clinically
--- NOTE | 2016-12-27 14:34 | RAD ---
PROCEDURE: Right Ankle Radiographs. HISTORY: r/o bone contusion of right ankle sp trauma COMPARISON: None FINDINGS: BONES: Bone alignment and mineralization are normal. There is no acute fracture or bone destruction. There is a large plantar calcaneal spur. JOINTS: Normal. No osteoarthritis. Ankle mortise maintained. Talar dome intact SOFT TISSUES: Normal. OTHER FINDINGS: None. IMPRESSION: No acute fracture or dislocation. Large plantar calcaneal spur.
--- NOTE | 2016-12-27 20:38 | DS ---
The patient is an 81-year-old, seen and examined. The patient was admitted with back pain. She was found to have pyelonephritis. She is growing E. coli, sensitive to cephalosporins and penicillin, BU T SHE IS ALLERGIC TO BACTRIM BOTH MEDICATIONS. So, she was started on Azactam. She is being transfe rred to TCU to complete the course of antibiotic. PHYSICAL EXAMINATION: GENERAL: Today, she is awake and alert, communicative. VITAL SIGNS: She is afebrile. Pulse 60, respirations 20, blood pressure 140/65. LUNGS: Bilateral good airflow, no rhonchi or crackle. HEART: S1, S2 audible. No murmur. ABDOMEN: Soft, obese, nontender, no rebound, no guarding. EXTREMITIES: She has a scab on her right palomino. NEUROLOGIC: She is awake and alert, communicative. Moves all extremities. LABORATORY EXAM: There is no new lab available. She had an x-ray of the ankle done that shows no acute fracture or dislocation, large plantar calcane al spur. ASSESSMENT AND PLAN: 1. Degenerative disk disease. 2. Pyelonephritis, with Escherichia coli urinary tract infection. 3. Hypertension. 4. Hypothyroidism. PLAN: The patient is being transferred to TCU to complete her course of antibiotics and encouraged a mbulation. Continue current medication as she is on now. Norberto Ambrose MD cc: [phone] TT: 12/27/2016 20:37:32 ln
== END 2016-12-27 15:10 | DRG 690 ==
LOC: ED 19:50 → ERH 12-23 00:09 → 5RNO 12-23 01:20 → OBSVTOIN 12-24 12:21 → 5RSO 12-25 21:40
PROVIDERS: ADMIT Internal Medicine; ATTEND Internal Medicine
DX: N10 Acute pyelonephritis (principal); B96.20 Unspecified Escherichia coli [E. coli] as the cause of diseases classified elsewhere; I10 Essential (primary) hypertension; K27.9 Peptic ulcer, site unspecified, unspecified as acute or chronic, without hemorrhage or perforation; M51.9 Unspecified thoracic, thoracolumbar and lumbosacral intervertebral disc disorder; E03.9 Hypothyroidism, unspecified; K57.30 Diverticulosis of large intestine without perforation or abscess without bleeding; E78.5 Hyperlipidemia, unspecified; N81.4 Uterovaginal prolapse, unspecified; M19.90 Unspecified osteoarthritis, unspecified site; E66.9 Obesity, unspecified; Z68.32 Body mass index [BMI] 32.0-32.9, adult; Z88.6 Allergy status to analgesic agent; Z88.0 Allergy status to penicillin; Z88.2 Allergy status to sulfonamides

== ENCOUNTER 2016-12-27 15:10 | Inpatient (IN) | payer OTHER ==
[2016-12-27] MEDS ORDERED: TraMADol/Apap 37.5/325 mg Tab PO PRN (16:19)
[2016-12-27 19:41] VITALS: BMI 32.8
[2016-12-27] MEDS ORDERED: Influenza Vaccine 45 MCG/0.5 ml IM ONE (19:41)
[2016-12-27] MEDS ORDERED: Pneumococcal 23-Valent Vaccine IM ONE (19:41)
[2016-12-27] MEDS: Aztreonam 1 Gm in NS 100mL 100 ML IVPB SCH (21:42)
[2016-12-27] MEDS ORDERED: Aztreonam 1 Gm in NS 100mL 100 ML IVPB SCH (22:00)
[2016-12-28] MEDS: Levothyroxine 50 MCG TAB PO SCH (05:39)
[2016-12-28] MEDS: Aztreonam 1 Gm in NS 100mL 100 ML IVPB SCH ×3 (05:39→21:36)
--- NOTE | 2016-12-28 09:17 | CP.PCM.PN ---
<Lauren Bronson - Last Filed: 12/28/16 09:13> Subjective - Date & Time of Evaluation Date of Evaluation: 12/28/16 Time of Evaluation: 07:50 - Subjective Subjective: 81 year old female seen at the bedside this morning with Dr. Palumbo for follow up of right leg abrasion. Pt seen resting comfortably in bed at time of visit. Denies any acute events overnight. Does admit to some slight pain to the wound today. Denies any other problems at this time. Objective - Vital Signs/Intake and Output Vital Signs (last 24 hours): Temp Pulse Resp BP Pulse Ox 97.9 F 77 15 137/77 12/27/16 19:26 12/27/16 19:26 12/27/16 19:26 12/27/16 19:26 - Medications Medications: Current Medications Acetaminophen (Tylenol 325mg Tab) 650 mg PO Q6H PRN; Protocol PRN Reason: Headache Docusate Sodium (Colace) 100 mg PO BID ROBERT PRN Reason: Protocol Last Admin: 12/27/16 17:45 Dose: Not Given Famotidine (Pepcid) 20 mg PO DAILY PRN; Protocol PRN Reason: GI distress Aztreonam (Azactam 1 Gm) 100 mls @ 100 mls/hr IVPB Q8 ROBERT PRN Reason: Protocol Stop: 01/01/17 22:01 Last Admin: 12/28/16 05:39 Dose: 100 mls/hr Levothyroxine Sodium (Synthroid) 50 mcg PO 0600 [facility] PRN Reason: Protocol Last Admin: 12/28/16 05:39 Dose: 50 mcg Lidocaine (Lidoderm) 1 ea TD DAILY [facility]ERT PRN Reason: Protocol Mupirocin (Bactroban Ointment) 0 gm TOP BID ROBERT PRN Reason: Protocol Last Admin: 12/27/16 17:45 Dose: Not Given Polyethylene Glycol (Miralax) 17 gm PO DAILY ROBERT PRN Reason: Protocol Tizanidine HCl (Zanaflex) 2 mg PO HS ROBERT PRN Reason: Protocol Last Admin: 12/27/16 21:27 Dose: 2 mg Tramadol/Acetaminophen (Ultracet 37.5/325 Mg) 1 tab PO Q6H PRN; Protocol PRN Reason: Pain, moderate (4-7) - Constitutional Appears: Non-toxic, No Acute Distress - Extremities Exam Extremities Exam: absent: Calf Tenderness Additional comments: Right lower extremity exam: VASC- DP pulse palpable (1/4), PT pulse non-palp, cft <3 sec to digits x 5, skin temperature runs warm to cool, slight non-pitting edema noted to anterior distal leg NEURO- gross pedal sensation is diminished DERM- superficial scabbed-over ulceration noted to anterior-distal leg, no drainage, no erythema, no probe to bone ORTHO- slight pain to palpation of ant leg wound - Neurological Exam Neurological Exam: Alert, Awake, Oriented x3 - Psychiatric Exam Psychiatric exam: Normal Affect, Normal Mood Assessment and Plan - Assessment and Plan (Free Text) Assessment: 81 y/o female with superficial abrasion to anterior aspect right palomino 2/2 trauma Plan: -Pt seen and evaluated at the bedside with Dr. Palumbo -Chart, labs, vitals reviewed: afebrile, wbc wnl -X-ray of right ankle reviewed: no evidence of fx/dislocation -Right leg cleansed with normal saline, bactroban and optifoam applied to wound. -Stable per podiatry -Podiatry will continue to follow while she remains in house <Juan Palumbo - Last Filed: 12/28/16 10:54> Objective - Vital Signs/Intake and Output Vital Signs (last 24 hours): Temp Pulse Resp BP Pulse Ox 97.9 F 77 15 137/77 12/27/16 19:26 12/27/16 19:26 12/27/16 19:26 12/27/16 19:26 - Medications Medications: Current Medications Acetaminophen (Tylenol 325mg Tab) 650 mg PO Q6H PRN; Protocol PRN Reason: Headache Docusate Sodium (Colace) 100 mg PO BID [facility] PRN Reason: Protocol Last Admin: 12/28/16 09:50 Dose: Not Given Famotidine (Pepcid) 20 mg PO DAILY PRN; Protocol PRN Reason: GI distress Aztreonam (Azactam 1 Gm) 100 mls @ 100 mls/hr IVPB Q8 ROBERT PRN Reason: Protocol Stop: 01/01/17 22:01 Last Admin: 12/28/16 05:39 Dose: 100 mls/hr Levothyroxine Sodium (Synthroid) 50 mcg PO 0600 [facility] PRN Reason: Protocol Last Admin: 12/28/16 05:39 Dose: 50 mcg Lidocaine (Lidoderm) 1 ea TD DAILY ROBERT PRN Reason: Protocol Last Admin: 12/28/16 09:51 Dose: 1 ea Mupirocin (Bactroban Ointment) 0 gm TOP BID ROBERT PRN Reason: Protocol Last Admin: 12/28/16 09:50 Dose: 1 applic Polyethylene Glycol (Miralax) 17 gm PO DAILY ROBERT PRN Reason: Protocol Last Admin: 12/28/16 09:51 Dose: Not Given Tizanidine HCl (Zanaflex) 2 mg PO HS ROBERT PRN Reason: Protocol Last Admin: 12/27/16 21:27 Dose: 2 mg Tramadol/Acetaminophen (Ultracet 37.5/325 Mg) 1 tab PO Q6H PRN; Protocol PRN Reason: Pain, moderate (4-7) Attending/Attestation - Attestation I have personally seen and examined this patient.: Yes I have fully participated in the care of the patient.: Yes I have reviewed all pertinent clinical information, including history, physical exam and plan: Yes
[2016-12-28] MEDS: POLYETHYLENE GLYCOL 3350 17 GM/Dose PACKET PO SCH (09:51)
[2016-12-28] MEDS: Lidocaine 5% Patch TD SCH (09:51)
--- NOTE | 2016-12-28 12:40 | CON ---
DATE: 12/28/2016 The patient seen earlier today in room 322. CHIEF COMPLAINT: Weakness x several days. HISTORY OF PRESENT ILLNESS: This is an 81-year-old female with past medical history of hypertension, hypothyroidism, obesity with a BMI of 33, history of urinary tract infections and uterine prolapse a nd history of diverticulitis and GERD, who was admitted to the acute care with a diagnosis of flank p ain and pyelonephritis, was treated with antibiotics and now transferred to transitional care. At th is time, patient states she is still feeling weak. She has not had any fevers and chills, no nausea or vomiting, no chest pain. PAST MEDICAL HISTORY: Significant for hypertension, hypothyroidism, obesity with a BMI of 33, histor y of urinary tract infection, history of uterine prolapse. PAST SURGICAL HISTORY: Significant for tonsillectomy. ALLERGIES: THE PATIENT HAS ALLERGIES TO CIPRO, PENICILLIN AND CEPHALEXIN. IN ADDITION TO THE CIPRO AND CEPHALEXIN AND PENICILLIN, THE PATIENT ALSO HAS MANY OTHER ALLERGIES INCLUDING RAGWEED, POLLEN, NUTS, MOLD, GRASS, DYES, DUST, BEE VENOM, TOMATOES, TREES, TAPE, AMITRIPTYLINE, ASPIRIN AND GABAPENTI N AND LACTASE, OMEPRAZOLE, OXYCODONE, PORK, SHELLFISH, AND TOLTERODINE TARTRATE. PHYSICAL EXAMINATION: VITAL SIGNS: The patient is in bed with a temperature of 97, blood pressure is 140/60, respiratory r ate 20, heart rate of 61. HEENT: Unremarkable. NECK: Supple. LUNGS: Have decreased breath sounds. HEART: Normal S1, S2. ABDOMEN: Soft, nontender, no organomegaly, no rebound, no guarding, no masses. LABORATORY EXAMINATION: Reveals a white count of 6.8, hemoglobin of 13 and platelets of 254. Chemis tries reveal the BUN of 28, creatinine of 1.1 with a random glucose of 114. Urinalysis is noted to h ave 10-15 WBCs, many bacteria. The patient's blood cultures are no growth at 5 days. Urine culture from 12/22 is positive for pansensitive E. coli. ASSESSMENT AND PLAN: An 80-year-old female with history of hypertension, hypothyroidism, obesity, hi story of urinary tract infections, uterine prolapse, diverticulitis and gastroesophageal reflux disea se, history of cholecystectomy and tonsillectomy, admitted with Escherichia coli urinary tract infect ion and improving with multiple allergies. Today is day #6 of Azactam. We will continue the Azactam and is unable to switch to p.o. We will treat 7-10 days of Azactam. I will follow closely with you . Case discussed with nursing staff. Review of the orders confirms the Azactam to be active. Anjum Simon MD cc: [phone] TT: 12/28/2016 12:39:06 Confirmation # [id number] Dictation # [id number] tn
--- NOTE | 2016-12-28 16:37 | HP ---
HISTORY OF PRESENT ILLNESS: The patient is an 81-year-old who was initially admitted with left flank pain. She suffers from chronic back pain, but this pain was more than usual, so she was found to cobb ve pyelonephritis and she is growing Escherichia coli in the urine. So she has multiple drug allergi es and she only responded to Azactam. To complete her course she is transferred to TCU. PAST MEDICAL HISTORY: Significant for: 1. Hypertension. 2. Degenerative disk disease. 3. Hypothyroidism. 4. Morbid obesity. 5. Hyperlipidemia. ALLERGIES: MULTIPLE ALLERGIES INCLUDING AMITRIPTYLINE, ASPIRIN, KEFLEX, CIPROFLOXIN, GABAPENTIN, LAC TOSE, PENICILLIN, PORK, SHELLFISH, DETROL, TOMATOES, BEE VENOM, DUST, DYES, GRASS, MOLD, ____ POLLEN AND RAG WEED, AND SURGICAL TAPE. MEDICATIONS AT HOME: She is on levothyroxine 50 mcg daily, hydrochlorothiazide 25 daily, famotidine 20 mg daily. SOCIAL HISTORY: She lives with her son. Denies smoking or drinking. REVIEW OF SYSTEMS: Significant for chronic back pain. She will follow with Dr. Garcia off and on f or that. PHYSICAL EXAMINATION: GENERAL: Today, she is sitting in chair. Still complained of increased frequency of urination. No fever or chills. VITAL SIGNS: She is afebrile, pulse ____, respirations 18, blood pressure 119/70. LUNGS: Bilateral fair airflow, no rhonchi or crackle. HEART: S1, S2 audible. No murmur. ABDOMEN: Soft, nontender, no rebound, no guarding. NEUROLOGIC: She is awake and alert, communicative, able to move all extremities. EXTREMITIES: She has a healing scab on the right palomino that is under care of Dr. Palumbo. PLAN: Currently, the patient is on Azactam, will continue that. I will repeat her urinalysis, will continue on Lidoderm patch. She will resume her usual medication. We will follow up patient on . Norberto Ambrose MD cc: [phone] TT: 12/28/2016 16:36:47 adán
[2016-12-29] MEDS: Aztreonam 1 Gm in NS 100mL 100 ML IVPB SCH ×3 (05:46→21:40)
[2016-12-29] MEDS: Levothyroxine 50 MCG TAB PO SCH (05:47)
[2016-12-29] MEDS: Lidocaine 5% Patch TD SCH (09:35)
[2016-12-29] MEDS: POLYETHYLENE GLYCOL 3350 17 GM/Dose PACKET PO SCH (09:36)
--- NOTE | 2016-12-29 12:59 | PN ---
DATE: 12/29/2016 SUBJECTIVE: The patient seen earlier today in room 322. She appears to be comfortable. No fevers a nd chills. No nausea or vomiting. PHYSICAL EXAMINATION: VITAL SIGNS: Temperature is 97, blood pressure is 120/60, respiratory rate of 18. HEENT: Unremarkable. NECK: Supple. LUNGS: Have decreased breath sounds. HEART: Normal S1, S2. ABDOMEN: Soft, nontender. LABORATORY DATA: Noted. ASSESSMENT AND PLAN: This is an 81-year-old female with hypertension, hypothyroidism, obesity, histo ry of urinary tract infection, history of uterine prolapse, history of diverticulitis, gastroesophage al reflux disease, history of cholecystectomy, tonsillectomy, admitted with Escherichia coli urinary tract infection, improving, in patient with multiple allergies. Today is day #7 of aztreonam. Would complete 7-10 days. The patient has a long history of allergies. Appears to be tolerating the aztr eonam. Review of the orders confirms the aztreonam to be active. Anjum Simon MD cc: [phone] TT: 12/29/2016 12:58:29 Confirmation # [id number] Dictation # [id number] anjali
[2016-12-30] MEDS: Aztreonam 1 Gm in NS 100mL 100 ML IVPB SCH ×2 (05:37→15:25)
[2016-12-30] MEDS: Levothyroxine 50 MCG TAB PO SCH (05:38)
[2016-12-30] MEDS: Lidocaine 5% Patch TD SCH (10:34)
[2016-12-30] MEDS: POLYETHYLENE GLYCOL 3350 17 GM/Dose PACKET PO SCH (10:35)
[2016-12-30 11:45] VITALS: RESP 18
--- NOTE | 2016-12-30 13:05 | PN ---
DATE: 12/30/2016 The patient is an 81-year-old, seen and examined, sitting in chair. States she has a tremor in her n conner, complained of neck pain, complained of back pain. She still feels soreness in the left flank. PHYSICAL EXAMINATION: VITAL SIGNS: She is afebrile, pulse 77, respirations 18, blood pressure 118/68. LUNGS: Bilateral good airflow, no rhonchi or crackle. HEART: S1, S2 audible. No murmur. ABDOMEN: Soft, nontender, no rebound, no guarding. NEUROLOGIC: The patient is awake and alert, communicative, moves all extremities, participating in t herapy. ASSESSMENT: 1. Escherichia coli urinary tract infection. Repeat culture positive for gram-positive cocci. [place] count is less than 10,000. 2. Degenerative disk disease. 3. Cervical radiculopathy. 4. Benign essential tremor. 5. Hypothyroidism. 6. Hyperlipidemia. PLAN: I will add Mysoline for the bedtime and will order x-ray of C-spine and lumbosacral spine. Co ntinue her on current analgesics. Currently, she is getting Azactam. She is getting local wound car e. She is complaining of diarrhea, so we will hold off her MiraLax and give her 1 dose of Imodium on ly. We will send stool for C. diff just since she is on antibiotic, and ID input noted and appreciat ed. The patient is currently on Azactam, will need 7-10 days. Yesterday was 7. Today, leave it up to ID to decide for duration of antibiotic. Norberto Ambrose MD cc: [phone] TT: 12/30/2016 13:04:59 Confirmation # [id number] Dictation # [id number] en
[2016-12-30] MEDS ORDERED: Loperamide Hydrochloride 1 mg/5 ml Cup PO ONE (14:00)
--- NOTE | 2016-12-30 15:57 | RAD ---
PROCEDURE: Cervical Spine Radiographs. HISTORY: Pain. COMPARISON: None. FINDINGS: BONES: Vertebral bodies are maintained in height. Grade 1 anterolisthesis C5-6, likely degenerative. Atlantoaxial articulation and odontoid process are intact. DISC SPACES: Degenerative disc disease C4-5 with narrowed intervertebral disc space. SOFT TISSUES: Normal. No prevertebral soft tissue swelling. OTHER FINDINGS: None. IMPRESSION: Grade 1 anterolisthesis C5-6, most likely degenerative in origin. Degenerative disc disease C4-5. No acute fracture.
--- NOTE | 2016-12-30 16:01 | CP.PCM.PN ---
Subjective - Date & Time of Evaluation Date of Evaluation: 12/30/16 Time of Evaluation: 10:35 - Subjective Subjective: No acute events overnight, no fevers, no dysuria or hematuria, no nausea. Objective - Vital Signs/Intake and Output Vital Signs (last 24 hours): Temp Pulse Resp BP Pulse Ox 97.4 F L 62 20 114/52 L 97 12/30/16 06:00 12/30/16 06:00 12/30/16 06:00 12/30/16 06:00 12/30/16 06:00 Intake and Output: 12/30/16 12/30/16 06:59 18:59 Intake Total 620 Balance 620 - Medications Medications: Current Medications Acetaminophen (Tylenol 325mg Tab) 650 mg PO Q6H PRN; Protocol PRN Reason: Headache Docusate Sodium (Colace) 100 mg PO BID [facility]ERT PRN Reason: Protocol Last Admin: 12/29/16 17:33 Dose: Not Given Famotidine (Pepcid) 20 mg PO DAILY PRN; Protocol PRN Reason: GI distress Aztreonam (Azactam 1 Gm) 100 mls @ 100 mls/hr IVPB Q8 ROBERT PRN Reason: Protocol Stop: 01/01/17 22:01 Last Admin: 12/30/16 05:37 Dose: 100 mls/hr Levothyroxine Sodium (Synthroid) 50 mcg PO 0600 [facility]ERT PRN Reason: Protocol Last Admin: 12/30/16 05:38 Dose: 50 mcg Lidocaine (Lidoderm) 1 ea TD DAILY [facility]ERT PRN Reason: Protocol Last Admin: 12/29/16 09:35 Dose: 1 ea Mupirocin (Bactroban Ointment) 0 gm TOP BID ROBERT PRN Reason: Protocol Last Admin: 12/29/16 17:33 Dose: 1 applic Polyethylene Glycol (Miralax) 17 gm PO DAILY [facility]ERT PRN Reason: Protocol Last Admin: 12/29/16 09:36 Dose: Not Given Tramadol/Acetaminophen (Ultracet 37.5/325 Mg) 1 tab PO Q6H PRN; Protocol PRN Reason: Pain, moderate (4-7) - Constitutional Appears: Non-toxic, No Acute Distress - Head Exam Head Exam: NORMAL INSPECTION - ENT Exam ENT Exam: Mucous Membranes Moist - Neck Exam Neck Exam: absent: Lymphadenopathy, Meningismus - Respiratory Exam Respiratory Exam: Decreased Breath Sounds - Cardiovascular Exam Cardiovascular Exam: +S1, +S2 - GI/Abdominal Exam GI & Abdominal Exam: Soft. absent: Tenderness Assessment and Plan - Assessment and Plan (Free Text) Plan: Assessment urinary tract infection with E. coli, with no evidence of nephrolithiasis, clinically improving uterine prolapse history of UTI's HTN hypothyroidism obesity with BMI 33 Plan on Azactam (day 8) - we are unable to switch to PO alternatives because of her medicine allergies, and she has also explicitly stated that she has tried Bactrim before which has led to severe itching; we will d/c antibiotics and observe Will continue to follow clinically
--- NOTE | 2016-12-30 16:58 | RAD ---
PROCEDURE: Radiographs of the Lumbar Spine. HISTORY: pain COMPARISON: No prior. FINDINGS: BONES: Mild posterior spondylolisthesis of L2 relative to L3 seen. No evidence of acute fracture. DISC SPACES: Severe degenerative changes are noted more prominent at L5-S1 and T11-T12. OTHER FINDINGS: None. IMPRESSION: Advanced degenerative changes. No definite evidence of acute fracture. Mild posterior spondylolisthesis of L2 relative to L3.
[2016-12-31] MEDS: Levothyroxine 50 MCG TAB PO SCH (06:18)
[2016-12-31] MEDS: Lidocaine 5% Patch TD SCH (09:36)
--- NOTE | 2016-12-31 14:15 | PN ---
DATE: 12/31/2016 An 81-year-old female seen at bedside for continued evaluation and management of resolving ulceration on the anterior aspect of her right ankle. The patient reports no pain and has been afebrile. VITAL SIGNS: Reveal a temperature of 97.4, pulse rate of 90, blood pressure 115/66, and respiratory rate of 18. LABORATORY DATA: Most recent labs reveal a white count of 6.8, hemoglobin of 13.6, hematocrit 40.6, platelet count of 254. OBJECTIVE: Nonpalpable posterior tibial pulse noted bilaterally. Weakly palpable dorsalis pedis pul se noted bilaterally. Temperature gradient is reversed bilaterally. There is noted to be +1 nonpitt ing edema to both lower legs. The patient is able to detect 5.07 gram monofilament wire testing, but it is decreased. The full thickness ulceration that was present on the anterior aspect of the right ankle is now resolved and superficial scabbing has been removed. ASSESSMENT: Resolved ulceration anterior right ankle. PLAN: The patient's wound was cleansed with normal sterile saline. I will apply an Optifoam today; however, the patient's wound is healed and she will no longer require dressing changes. The patient will be seen and followed as needed. Juan Palumbo DPM cc: [phone] TT: 12/31/2016 14:14:59 Confirmation # [id number] Dictation # [id number] anjali
--- NOTE | 2016-12-31 17:07 | CP.PCM.PN ---
Subjective - Date & Time of Evaluation Date of Evaluation: 12/31/16 Time of Evaluation: 09:55 - Subjective Subjective: Comfortable, not in distress, afebrile, no flank pain currently. Objective - Vital Signs/Intake and Output Vital Signs (last 24 hours): Temp Pulse Resp BP Pulse Ox 97.4 F L 90 18 115/66 97 12/31/16 10:00 12/31/16 10:00 12/31/16 10:00 12/31/16 10:00 12/31/16 10:00 - Medications Medications: Current Medications Acetaminophen (Tylenol 325mg Tab) 650 mg PO Q6H PRN; Protocol PRN Reason: Headache Famotidine (Pepcid) 20 mg PO DAILY PRN; Protocol PRN Reason: GI distress Levothyroxine Sodium (Synthroid) 50 mcg PO 0600 [facility] PRN Reason: Protocol Last Admin: 12/31/16 06:18 Dose: 50 mcg Lidocaine (Lidoderm) 1 ea TD DAILY [facility]ERT PRN Reason: Protocol Last Admin: 12/31/16 09:36 Dose: 1 ea Mupirocin (Bactroban Ointment) 0 gm TOP BID [facility]ERT PRN Reason: Protocol Last Admin: 12/31/16 09:35 Dose: 1 applic Primidone (Mysoline) 50 mg PO HS ROBERT Last Admin: 12/30/16 22:08 Dose: Not Given Tramadol/Acetaminophen (Ultracet 37.5/325 Mg) 1 tab PO Q6H PRN; Protocol PRN Reason: Pain, moderate (4-7) - Constitutional Appears: Non-toxic, No Acute Distress - Head Exam Head Exam: NORMAL INSPECTION - Neck Exam Neck Exam: absent: Lymphadenopathy, Meningismus - Respiratory Exam Respiratory Exam: Decreased Breath Sounds - Cardiovascular Exam Cardiovascular Exam: +S1, +S2 - GI/Abdominal Exam GI & Abdominal Exam: Soft. absent: Tenderness Assessment and Plan - Assessment and Plan (Free Text) Plan: Assessment urinary tract infection with E. coli, with no evidence of nephrolithiasis, clinically improved and S/P treatment uterine prolapse history of UTI's HTN hypothyroidism obesity with BMI 33 Plan S/P 8 days of Azactam - will continue to observe off antibiotics since she is at risk for nosocomial infections
--- NOTE | 2016-12-31 18:12 | PN ---
DATE: 12/31/2016 SUBJECTIVE: The patient is an 39-oekib-res white female, seen and examined, sitting in a chair, seem s to be comfortable, complaining of back pain, complaining of left leg pain and neck pain but bearabl e. PHYSICAL EXAMINATION: VITAL SIGNS: She is afebrile, pulse is 90, respirations 18, blood pressure 115/66 and pulse ox 97%. She had lumbar and cervical spine x-ray done that showed significant enterolithiasis of C5-C6, most l ikely degenerative in origin, degenerative disk disease at C4-C5. ASSESSMENT AND PLAN: 1. Pyelonephritis, resolving. 2. Low grade gram-positive cocci in the urine. 3. Escherichia coli urinary tract infection. 4. Degenerative disk disease. 5. Hypothyroidism. 6. Hypertension. PLAN: The patient complained of diarrhea yesterday, but her stool softener was held and she was give n Imodium, she seems to be doing well with that. She is okay with a 5% Lidoderm patch for her back p ain. She is receiving her levothyroxine. She is off of antibiotics. Discharge plan for a.m. Norberto Ambrose MD cc: [phone] TT: 12/31/2016 18:11:46 Confirmation # [id number] Dictation # [id number] dn
[2017-01-01] MEDS: Levothyroxine 50 MCG TAB PO SCH (06:09)
[2017-01-01] MEDS: Lidocaine 5% Patch TD SCH (10:10)
--- NOTE | 2017-01-01 20:51 | PN ---
DATE: 01/01/2017 The patient is an 81-year-old seen and examined, only has back pain and some neck discomfort, otherwi se doing well. PHYSICAL EXAMINATION: VITAL SIGNS: She is afebrile, pulse 60, respirations 18, blood pressure 152/67. LUNGS: Bilateral good airflow. No rhonchi or crackle. HEART: S1, S2 audible. No murmur. ABDOMEN: Soft, nontender, no rebound, no guarding. NEUROLOGIC: She is awake and alert, communicative. Ambulates with a walker. ASSESSMENT: 1. Resolved pyelonephritis. 2. Escherichia coli urinary tract infection. 3. Degenerative disk disease. 4. Hypertension. 5. Hyperlipidemia. 6. Deconditioning and some difficulty walking. PLAN: The patient is doing well off of antibiotic. Ambulating with a walker. Plan for discharge in a.m. when her son picks her up. Norberto Ambrose MD cc: [phone] TT: 01/01/2017 20:51:22 Confirmation # [id number] Dictation # [id number] anjali
[2017-01-02] MEDS: Levothyroxine 50 MCG TAB PO SCH (06:02)
[2017-01-02] MEDS: Lidocaine 5% Patch TD SCH (10:26)
[2017-01-02 12:15] VITALS: BP 127/67; PULSE 71; TEMP 98; O2SAT 100
--- NOTE | 2017-01-03 10:53 | DS ---
The patient was admitted with severe left flank pain. She was found to have pyelonephritis. She was treated for E. coli UTI. She also has chronic degenerative disk disease, so she was given analgesic s, was also evaluated by Dr. Garcia, who added 5% Lidoderm patch with a muscle relaxant with some re lief. Transferred to TCU for rehab. PHYSICAL EXAMINATION: GENERAL: Today, she is awake and alert, communicative. VITAL SIGNS: She is afebrile, pulse 71, respirations 18, blood pressure 127/67. LUNGS: Bilateral good airflow, no rhonchi or crackle. HEART: S1, S2 audible. No murmur. ABDOMEN: Soft, nontender, no rebound, no guarding. NEUROLOGIC: The patient is awake and alert, communicative. Ambulates with a cane. ASSESSMENT: 1. Severe degenerative disk disease. 2. Cervical and lumbosacral lithiasis, stiffening of ligaments. 3. Hypothyroidism. 4. Hyperlipidemia. PLAN: The patient is being discharged home. She will resume her medication 50 mcg of levothyroxine, hydrochlorothiazide 25 mg daily and Lidoderm patch. The patient will follow up with her PMD. Norberto Ambrose MD cc: [phone] TT: 01/03/2017 10:52:34 en
== END 2017-01-02 16:23 | disposition home or self-care (01) | DRG 690 ==
LOC: TRCU 15:10
PROVIDERS: ADMIT Internal Medicine; ATTEND Internal Medicine
PROC: F07Z9FZ Gait Training/Functional Ambulation Treatment using Assistive, Adaptive, Supportive or Protective Equipment (ICD-10-PCS; principal; 2016-12-28)
PROC: F08Z4FZ Home Management Treatment using Assistive, Adaptive, Supportive or Protective Equipment (ICD-10-PCS; 2016-12-28)
DX: N12 Tubulo-interstitial nephritis, not specified as acute or chronic (principal); B96.20 Unspecified Escherichia coli [E. coli] as the cause of diseases classified elsewhere; Z79.2 Long term (current) use of antibiotics; I10 Essential (primary) hypertension; M50.121 Cervical disc disorder at C4-C5 level with radiculopathy; M43.16 Spondylolisthesis, lumbar region; G89.29 Other chronic pain; R26.2 Difficulty in walking, not elsewhere classified; E03.9 Hypothyroidism, unspecified; E78.5 Hyperlipidemia, unspecified; K21.9 Gastro-esophageal reflux disease without esophagitis; N81.4 Uterovaginal prolapse, unspecified; G25.0 Essential tremor; E66.09 Other obesity due to excess calories; Z68.33 Body mass index [BMI] 33.0-33.9, adult; Z87.440 Personal history of urinary (tract) infections

== ENCOUNTER 2017-01-31 20:26 | Inpatient (IN) | payer MEDICARE, OTHER ==
[2017-01-31 20:35] VITALS: BMI 31.1
[2017-01-31] MEDS ORDERED: Potassium Chloride 20 mEq 100 ML IVPB ONE (20:41)
--- NOTE | 2017-01-31 20:45 | ED PDOC ---
Arrival/HPI - General Historian: Patient - History of Present Illness Context: Home - General Chief Complaint: Back Pain Time Seen by Provider: 01/31/17 20:36 - History of Present Illness Narrative History of Present Illness (Text): 01/31/17 20:45 This is a 81 year old female, whose past medical history includes utero-vaginal prolapse, UTI, hypertension and hypothyroidism, presents to the emergency department for evaluation of left flank/left lower back pain x 5 weeks. Patient stated pain became very severe x [facility]. Pain is intermittent, and she feels she has a kidney stone. Patient admits urinary frequency, however, she has been drinking water. Patient stated she feels chills, and pain does not allow her to walk. Patient was admitted in this hospital x 4 weeks ago, for 4- 5 days. Denies sob, cp, cough, rash, CHAMPION, dizziness, or hematuria, vaginal bleeding, leg swelling, calf pain, recent travel, fever, saddle anesthesia, recent trauma, weakness, paresthesias, /GI incontinence, urinary retention, or sick contact. (Yuki Rodriguez) Past Medical History - Provider Review Nursing Documentation Reviewed: Yes - Infectious Disease Hx of Infectious Diseases: None - Tetanus Immunization Tetanus Immunization: Unknown - Cardiac Hx Hypertension: Yes - Pulmonary Hx Respiratory Tract Infection: Yes (chronic upper respiratory tract infection) - Neurological Hx Migraine: Yes - HEENT Hx HEENT Disorder: No - Renal Hx Renal Disorder: Yes Hx Kidney Stones: Yes - Endocrine/Metabolic Hx Diabetes Mellitus Type 2: Yes - Hematological/Oncological Other/Comment: "low immune system", fibroid tumors and fibrocystic breasts - Integumentary Hx Dermatological Disorder: No - Musculoskeletal/Rheumatological Hx Falls: Yes - Gastrointestinal Hx Gastrointestinal Disorders: Yes (DIVERTICULITIS,CHOLECYSTECTOMY,GERD, TONSILLECTOMY) - Genitourinary/Gynecological Hx Genitourinary Disorders: Yes Hx Reproductive Disorders: Yes (UTERINE PROLAPSE) - Psychiatric Hx Psychophysiologic Disorder: No Hx Substance Use: No - Surgical History Hx Appendectomy: Yes (1951) Hx Cholecystectomy: Yes (1994) Other/Comment: tonsillectomy 1937 - Anesthesia Hx Anesthesia: Yes Hx Anesthesia Reactions: No Hx Malignant Hyperthermia: No - Suicidal Assessment Feels Threatened In Home Enviroment: No Family/Social History - Physician Review Nursing Documentation Reviewed: Yes Family/Social History: No Known Family HX Smoking Status: Never Smoked Hx Alcohol Use: No Hx Substance Use: No Hx Substance Use Treatment: No Allergies/Home Meds Allergies/Adverse Reactions: Allergies amitriptyline Allergy (Verified 12/27/16 16:53) RASH aspirin Allergy (Verified 12/27/16 16:53) RASH cephalexin Allergy (Verified 12/27/16 16:53) RASH ciprofloxacin Allergy (Verified 12/27/16 16:53) RASH gabapentin Allergy (Verified 12/27/16 16:53) RASH lactase [From Dairy Aid] Allergy (Verified 12/27/16 16:53) DIARRHEA omeprazole Allergy (Verified 12/27/16 16:53) RASH oxycodone Allergy (Verified 12/27/16 16:53) NAUSEA Penicillins Allergy (Verified 12/27/16 16:53) URTICARIA PORK Allergy (Verified 12/27/16 16:53) unknown shellfish derived Allergy (Verified 12/27/16 16:53) RASH tolterodine tartrate [From Detrol] Allergy (Verified 12/27/16 16:53) RASH tomato Allergy (Verified 12/27/16 16:53) RASH bee venom Allergy (Uncoded 12/27/16 16:53) RASH dust Allergy (Uncoded 12/27/16 16:53) unknown dyes Allergy (Uncoded 12/27/16 16:53) unknown grass Allergy (Uncoded 12/27/16 16:53) unknown mold Allergy (Uncoded 12/27/16 16:53) unknown nuts Allergy (Uncoded 12/27/16 16:53) ANGIOEDEMA pollen Allergy (Uncoded 12/27/16 16:53) unknown ragweed Allergy (Uncoded 12/27/16 16:53) unknown tape Allergy (Uncoded 12/27/16 16:53) RASH trees Allergy (Uncoded 12/27/16 16:53) unknown wool Allergy (Uncoded 12/27/16 16:53) RASH Home Medications: Home Meds Medication Instructions Recorded Confirmed Hydrochlorothiazide [HCTZ] 25 mg PO DAILY 10/02/14 01/31/17 Levothyroxine Sodium [Levothroid] 0.05 mg PO DAILY 10/02/14 01/31/17 Cholecalciferol [Vitamin D 1000 IU] 2,000 unit PO DAILY 01/31/17 01/31/17 Famotidine [Heartburn Prevention] 1 tab PO DAILY PRN 01/31/17 01/31/17 Review of Systems - Review of Systems Constitutional: Normal. absent: Fatigue, Weight Change, Fevers Eyes: Normal ENT: Normal Respiratory: Normal Cardiovascular: Normal Gastrointestinal: Abdominal Pain. absent: Diarrhea, Nausea, Vomiting Genitourinary Female: Normal. absent: Dysuria, Frequency, Hematuria, Urine Output Changes, Vaginal Bleeding, Vaginal Discharge Musculoskeletal: Back Pain Skin: Normal. absent: Rash Neurological: Normal Endocrine: Normal Hemo/Lymphatic: Normal Psychiatric: Normal Physical Exam Temperature: Afebrile Blood Pressure: Normal Pulse: Regular Respiratory Rate: Normal Appearance: Positive for: Well-Appearing, Non-Toxic, Comfortable Pain Distress: None Mental Status: Positive for: Alert and Oriented X 3 - Systems Exam Head: Present: Atraumatic, Normocephalic Pupils: Present: PERRL Extroacular Muscles: Present: EOMI Conjunctiva: Present: Normal Mouth: Present: Moist Mucous Membranes Neck: Present: Normal Range of Motion Respiratory/Chest: Present: Clear to Auscultation, Good Air Exchange. No: Respiratory Distress, Accessory Muscle Use Cardiovascular: Present: Regular Rate and Rhythm, Normal S1, S2. No: Murmurs Abdomen: Present: Tenderness (left flank tenderness), Normal Bowel Sounds. No: Distention, Peritoneal Signs, Rebound, Guarding Back: Present: Normal Inspection Upper Extremity: Present: Normal Inspection. No: Cyanosis, Edema Lower Extremity: Present: Normal Inspection. No: Edema Neurological: Present: GCS=15, CN II-XII Intact, Speech Normal Skin: Present: Warm, Dry, Normal Color. No: Rashes Psychiatric: Present: Alert, Oriented x 3, Normal Insight, Normal Concentration Vital Signs Temp Pulse Resp BP Pulse Ox 02/01/17 00:29 16 140/74 95 01/31/17 20:26 97.5 F L 65 20 141/85 100 Medical Decision Making Re-evaluation Time: 22:29 Reassessment Condition: Re-examined, Improved - Lab Interpretations I have reviewed the lab results: Yes Interpretation: Abnormal lab values ED Course and Treatment: I was available for consultation during PA evaluation. The chart was reviewed by me, and I agree with disposition. The documented history was done by the physician manager balance. The documented physical exam was done by the physician manager balance. The documented procedures were done by the physician manager balance. ( Odalis Waddelliy) 01/31/17 22:[address] Ambrose regarding patient c/o left flank pain. CT abdomen/ pelvis demonstrates sigmoid diverticulitis w/o abscess. Patient is intractable pain. UA demonstrates acute cystitis, although epithelial cells were noted. Dr. Ambrose recommended Azactam 1 gr. IV q8h, and Flagyl 500mg IVP q8h. 01/31/17 22:35 Patient stated her ID doctor is Dr. Anjum Simon. (Yuki Rodriguez) - Lab Interpretations Microbiology Results: Microbiology Results 01/31/17 21:25 Blood Blood Culture - Preliminary NO GROWTH AFTER 48 HOURS 01/31/17 21:00 Blood Blood Culture - Preliminary NO GROWTH AFTER 48 HOURS 01/31/17 21:05 Urine Urine Culture - Final MULTIPLE SPECIES. SUGGEST REPEAT SPECIMEN. Lab Results: 01/31/17 21:00 01/31/17 21:00 Lab Results 01/31/17 21:05: Urine Color Yellow, Urine Appearance Sl cloudy, Urine pH 6.0, Ur Specific [place] 1.015, Urine Protein Negative, Urine Glucose (UA) Negative, Urine Ketones Negative, Urine Blood Trace-intact H, Urine Nitrate Negative, Urine Bilirubin Negative, Urine Urobilinogen 0.2, Ur Leukocyte Esterase Large H , Urine RBC 2 - 5, Urine WBC 25 - 30, Ur Epithelial Cells 10 - 12, Urine Bacteria Many 01/31/17 21:00: WBC 6.4, RBC 4.14, Hgb 12.4, Hct 37.3, MCV 90.1, MCH 30.0, MCHC 33.2, RDW 14.3, Plt Count 260, MPV 10.6, Gran % 68.4 H, Lymph % (Auto) 18.3 L, [place] % (Auto) 10.5 H, Eos % (Auto) 2.2, Baso % (Auto) 0.6, Gran # 4.38, Lymph # 1.2, Forest # 0.7 H, Eos # 0.1, Baso # 0.04, Sodium 135, Potassium 4.3, Chloride 101, Carbon Dioxide 22, Anion Gap 16, BUN 20, Creatinine 1.0, Est GFR ( Amer) > 60, Est GFR (Non-Af Amer) 53, Random Glucose 114 H, Calcium 9.1, Total Bilirubin 0.7, AST 24, ALT 32, Alkaline Phosphatase 87, Total Protein 7.9, Albumin 4.1, Globulin 3.9, Albumin/Globulin Ratio 1.1, Lipase 76 - RAD Interpretation Narrative RAD Interpretations (Text): 01/31/17 22:12 [facility] Preliminary Radiology Report Call: [phone] assistance Online chat: [email or web address] Patient Name: ADDIE KONG I FINDINGS: Limitations: Evaluation of the solid organ is limited due to lack of IV contrast. Lower thorax: Small fat containing diaphragmatic hernia on the right. ABDOMEN: Liver: The liver is slightly heterogenous in appearance. Gallbladder and bile ducts: Status post cholecystectomy. No ductal dilation. Pancreas: Pancreas evaluation is limited. No ductal dilation. Spleen: Unremarkable. No splenomegaly. Adrenals: Unremarkable. No mass. Kidneys and ureters: Unremarkable. No obstructing stones. No hydronephrosis. Stomach and bowel: Descending / sigmoid colonic pericolonic infiltration, consistent with diverticulitis. No abscess formation. No free air. followup is advised after appropriate treatment to evaluate the underlying wall. Bowel evaluation is limited due to lack of distention. Appendix: No findings to suggest acute appendicitis. PELVIS: Bladder: Unremarkable. No stones. Reproductive: Unremarkable as visualized. ABDOMEN and PELVIS: Intraperitoneal space: See above. Bones/joints: No acute fracture. No dislocation. Soft tissues: Unremarkable. Vasculature: Unremarkable. No abdominal aortic aneurysm. Lymph nodes: Unremarkable. No enlarged lymph nodes. IMPRESSION: Descending / sigmoid colonic pericolonic infiltration, consistent with diverticulitis. No abscess formation. No free air. followup is advised after appropriate treatment to evaluate the underlying wall. Thank you for allowing us to participate in the care of your patient. Dictated and Authenticated by: Marlee Naranjo MD 01/31/2017 9:59 PM Eastern Time ([place] & [place]) (Yuki Rodriguez) Radiology Orders: 01/31/17 20:57 ABD & PELVIS W/O PO OR IV CONT [CT] Stat 01/31/17 21:00 CHEST PORTABLE [RAD] Stat - Medication Orders Current Medication Orders: Sodium Chloride (Sodium Chloride 0.9%) 1,000 mls @ 75 mls/hr IV .[id number] ROBERT Last Admin: 02/02/17 15:09 Dose: Not Given Non-Admin Reason: Patient Refused Aztreonam (Azactam 1 Gm) 100 mls @ 100 mls/hr IVPB Q8 ROBERT PRN Reason: Protocol Stop: 02/07/17 22:46 Last Admin: 02/02/17 13:10 Dose: 100 MLS/HR eMAR Start Stop Document 02/02/17 13:10 DSZ (Rec: 02/02/17 13:10 DSZ [id number]) Intravenous Solution Start Date 02/02/17 Start Time 13:10 Metronidazole (Flagyl) 100 mls @ 100 mls/hr IVPB Q8 ROBERT PRN Reason: Protocol Last Admin: 02/02/17 22:00 Dose: 100 MLS/HR eMAR Start Stop Document 02/02/17 22:00 OLIVD (Rec: 02/02/17 22:00 OLIVD [id number]) Intravenous Solution Start Date 02/02/17 Start Time 22:00 End Date 02/02/17 End time 23:00 Total Infusion Time 60 Linezolid (Zyvox 600mg/300ml D5w) 300 mls @ 200 mls/hr IVPB Q12 ROBERT PRN Reason: Protocol Stop: 02/08/17 10:31 Last Admin: 02/02/17 10:07 Dose: 200 MLS/HR eMAR Start Stop Document 02/02/17 10:07 DSZ (Rec: 02/02/17 10:07 DSZ [id number]) Intravenous Solution Start Date 02/02/17 Start Time 10:07 Levothyroxine Sodium (Synthroid) 50 mcg PO DAILY [facility] Last Admin: 02/02/17 10:02 Dose: Morphine Sulfate (Morphine) 4 mg IVP Q6H PRN PRN Reason: Pain, severe (8-10) Last Admin: 02/01/17 09:54 Dose: 4 MG MAR Pain Assessment Document 02/01/17 09:54 EDILBERTO (Rec: 02/01/17 09:55 EDILBERTO [id number]) Pain Reassessment Is this a pain reassessment? No Sleep Is patient sleeping during reassessment? No Presence of Pain Presence of Pain Yes Pain Scale Used Pain Scale Used Numeric Location Left, Right or Bilateral Left Upper or Lower Lower Pain Location Body Site Back Description Description Intermittent Intensity of Pain at present 9 Aggravating Factors Changing Position Exercise/Activity Alleviating Factors/Management Medication Techniques IVP Administration Document 02/01/17 09:54 EDILBERTO (Rec: 02/01/17 09:55 EDILBERTO [facility] [id number]) Charges for Administration # of IVP Administrations 1 Nystatin (Nystop Topical Powder) 1 gm TOP TID ROBERT Last Admin: 02/02/17 18:08 Dose: 1 APPL Ondansetron HCl (Zofran Inj) 4 mg IVP Q4H PRN PRN Reason: Nausea/Vomiting Last Admin: 02/02/17 10:29 Dose: 4 MG IVP Administration Document 02/02/17 10:29 DSZ (Rec: 02/02/17 10:29 DSZ [id number]) Charges for Administration # of IVP Administrations 1 Discontinued Medications Famotidine (Pepcid) 20 mg IVP STAT STA Stop: 01/31/17 20:58 Last Admin: 01/31/17 21:19 Dose: 20 MG IVP Administration Document 01/31/17 21:19 EKEOO (Rec: 01/31/17 21:19 EKEOO [id number]) Charges for Administration # of IVP Administrations 1 Sodium Chloride (Sodium Chloride 0.9%) 500 mls @ 1,000 mls/hr IV .Q30M STA Stop: 01/31/17 21:26 Last Admin: 01/31/17 21:19 Dose: 1,000 MLS/HR eMAR Start Stop Document 01/31/17 21:19 EKEOO (Rec: 01/31/17 21:19 EKEOO [id number]) Intravenous Solution Start Date 01/31/17 Start Time 21:19 Aztreonam (Azactam 1 Gm) 100 mls @ 100 mls/hr IVPB Q8 ROBERT PRN Reason: Protocol Stop: 02/01/17 14:59 Last Admin: 02/01/17 00:12 Dose: 100 MLS/HR eMAR Start Stop Document 02/01/17 00:12 EKEOO (Rec: 02/01/17 00:12 EKEOO [id number]) Intravenous Solution Start Date 02/01/17 Start Time 00:12 Metronidazole (Flagyl) 100 mls @ 100 mls/hr IVPB Q8 ROBERT PRN Reason: Protocol Stop: 02/01/17 09:00 Last Admin: 02/01/17 06:54 Dose: 100 MLS/HR eMAR Start Stop Document 02/01/17 06:54 SD (Rec: 02/01/17 06:55 [email or web address] Intravenous Solution Start Date 02/01/17 Start Time 06:54 Morphine Sulfate (Morphine) 4 mg IVP STAT STA Stop: 01/31/17 20:58 Morphine Sulfate (Morphine) 2 mg IVP STAT STA Stop: 01/31/17 21:03 Last Admin: 01/31/17 21:18 Dose: 2 MG MAR Pain Assessment Document 01/31/17 21:18 EKEOO (Rec: 01/31/17 21:19 EKEOO [id number]) Pain Reassessment Is this a pain reassessment? No Sleep Is patient sleeping during reassessment? No Presence of Pain Presence of Pain Yes IVP Administration Document 01/31/17 21:18 EKEOO (Rec: 01/31/17 21:19 EKEOO [id number]) Charges for Administration # of IVP Administrations 1 Morphine Sulfate (Morphine) 4 mg IVP STAT STA Stop: 01/31/17 22:11 Last Admin: 01/31/17 23:29 Dose: 4 MG MAR Pain Assessment Document 01/31/17 23:29 GMD (Rec: 01/31/17 23:30 GMD [facility] [place]) Pain Reassessment Is this a pain reassessment? No Sleep Is patient sleeping during reassessment? No Presence of Pain Presence of Pain Yes Location Pain Location Body Site Back IVP Administration Document 01/31/17 23:29 GMD (Rec: 01/31/17 23:30 GMD [facility] [place]) Charges for Administration # of IVP Administrations 1 Re-Assess: MAR Pain Assessment Document 02/01/17 00:29 SD (Rec: 02/01/17 02:03 SD [id number]) Pain Reassessment Is this a pain reassessment? No Sleep Is patient sleeping during reassessment? No Presence of Pain Presence of Pain Yes Pain Scale Used Pain Scale Used Numeric Ondansetron HCl (Zofran Inj) 4 mg IVP STAT STA Stop: 01/31/17 20:58 Last Admin: 01/31/17 21:19 Dose: 4 MG IVP Administration Document 01/31/17 21:19 EKEOO (Rec: 01/31/17 21:19 EKEOO [id number]) Charges for Administration # of IVP Administrations 1 Disposition/Present on Arrival - Present on Arrival Any Indicators Present on Arrival: No History of DVT/PE: No History of Uncontrolled Diabetes: No Urinary Catheter: No History of Decub. Ulcer: No History Surgical Site Infection Following: None - Disposition Have Diagnosis and Disposition been Completed?: Yes Disposition Time: 22:30 Patient Plan: Admission - Disposition Diagnosis: Sigmoid diverticulitis, Intractable abdominal pain, Urinary tract infection Disposition: HOSPITALIZED Patient Problems: Current Active Problems Problem Status Diagnosed Flank pain Acute Intractable abdominal pain Acute Pyelonephritis Acute Sigmoid diverticulitis Acute Urinary tract infection Acute Condition: STABLE
[2017-01-31] MEDS ORDERED: Sodium Chloride 0.9% 500 ML IV STA (20:57)
[2017-01-31] MEDS ORDERED: Morphine 4 mg/ml ISec IVP STA ×2 (20:57→22:10)
[2017-01-31] MEDS ORDERED: Morphine 2 mg/ml ISec IVP STA (21:02)
[2017-01-31 21:16] LABS: URINE BILIRUBIN NEGATIVE (NEGATIVE); URINE BLOOD TRACE-INTACT (NEGATIVE); URINE GLUCOSE (UA) NEGATIVE (NEGATIVE); URINE KETONE NEGATIVE (NEGATIVE); URINE LEUKOCYTE ESTERASE LARGE Leu/uL (NEGATIVE); URINE PROTEIN NEGATIVE mg/dL (<30 mg/dL); URINE UROBILINOGEN 0.2 E.U./dL (<1 E.U./dL)
[2017-01-31 21:19] LABS: URINE APPEARANCE SL CLOUDY (CLEAR); URINE COLOR YELLOW (YELLOW)
[2017-01-31 21:36] LABS: URINE BACTERIA MANY (NEG); URINE WBC 25 - 30 /hpf (0-6)
[2017-01-31 21:46] LABS: ADD MANUAL DIFF? NO
[2017-01-31 22:04] LABS: ALB/GLOB RATIO 1.1 (1.1-1.8); ALKALINE PHOSPHATASE 87 U/L (38-133); ALT/SGPT 32 U/L (7-56); AST/SGOT 24 U/L (15-39); BILIRUBIN,TOTAL 0.7 mg/dL (0.2-1.3); BLOOD UREA NITROGEN 20 mg/dL (7-21); CALCIUM 9.1 mg/dL (8.4-10.5); CARBON DIOXIDE 22 mmol/L (21-33); CHLORIDE 101 mmol/L (98-107); GFR AFRICAN-AMERICAN > 60; GLUCOSE,RANDOM 114 mg/dL (70-110); LIPASE 76 U/L (23-300); POTASSIUM 4.3 mmol/L (3.6-5.0); SODIUM 135 mmol/L (132-148); TOTAL PROTEIN 7.9 g/dL (5.8-8.3)
[2017-01-31 22:23] LABS: BASO # 0.04 K/mm3 (0.0-2.0); BASO % 0.6 % (0.0-3.0); EOS # 0.1 (0.0-0.7); EOS % 2.2 % (1.5-5.0); GRAN # 4.38 (1.4-6.5); GRAN % 68.4 % (50.0-68.0); HEMATOCRIT 37.3 % (36.0-48.0); LYMPH # 1.2 (1.2-3.4); LYMPH % 18.3 % (22.0-35.0); MEAN CELL VOLUME 90.1 fL (80.0-105.0); MEAN CORPUSCULAR HGB CONC 33.2 g/dl (31.0-37.0); MEAN PLATELET VOLUME 10.6 fl (7.0-11.0); MONO # 0.7 (0.1-0.6); MONO % 10.5 % (1.0-6.0); PLATELET COUNT 260 10^3/uL (120.0-450.0); RED CELL DISTRIBUTION WIDTH 14.3 % (11.5-14.5); WHITE BLOOD COUNT 6.4 10^3/ul (4.5-11.0)
[2017-01-31] MEDS ORDERED: Aztreonam 1 Gm in NS 100mL 100 ML IVPB SCH (22:45)
[2017-01-31 23:34] LABS: INR 1.01 (0.93-1.08); PARTIAL THROMBOPLASTIN TIME 30.3 Seconds (23.7-30.8)
[2017-02-01] MEDS: metroNIDAZOLE IV 500 mg/100 ml 100 ML IVPB SCH ×4 (00:05→23:10)
[2017-02-01] MEDS: Sodium Chloride 0.9% 1,000 ML IV SCH ×2 (00:24→23:10)
[2017-02-01] MEDS: Aztreonam 1 Gm in NS 100mL 100 ML IVPB SCH ×3 (06:54→23:09)
--- NOTE | 2017-02-01 08:04 | CT ---
PROCEDURE: CT Abdomen and Pelvis without intravenous contrast HISTORY: left flank pain COMPARISON: None. TECHNIQUE: Technique. Contrast Dose: Radiation dose: Total exam DLP = mGy-cm. This CT exam was performed using one or more of the following dose reduction techniques: Automated exposure control, adjustment of the mA and/or kV according to patient size, and/or use of iterative reconstruction technique. FINDINGS: LOWER THORAX: Unremarkable. LIVER: Unremarkable. No gross lesion or ductal dilatation. GALLBLADDER AND BILE DUCTS: Status post cholecystectomy. PANCREAS: Unremarkable. No gross lesion or ductal dilatation. SPLEEN: Unremarkable. ADRENALS: Unremarkable. No mass. KIDNEYS AND URETERS: Unremarkable. No hydronephrosis. No solid mass. VASCULATURE: Unremarkable. No aortic aneurysm. BOWEL: Pericolonic fat infiltration is observed at the sigmoid colon compatible with acute diverticulitis. No abscess or pneumoperitoneum is observed. There is a rectal tube in place. APPENDIX: Unremarkable. Normal appendix. PERITONEUM: Unremarkable. No free fluid. No free air. LYMPH NODES: Unremarkable. No enlarged lymph nodes. BLADDER: Unremarkable. REPRODUCTIVE: Unremarkable. BONES: No acute fracture. OTHER FINDINGS: None. IMPRESSION: Acute sigmoid diverticulitis. No abscess or free air.
--- NOTE | 2017-02-01 08:37 | RAD ---
HISTORY: admission COMPARISON: No prior. FINDINGS: LUNGS: No active pulmonary disease. PLEURA: No significant pleural effusion identified, no pneumothorax apparent. CARDIOVASCULAR: Normal. OSSEOUS STRUCTURES: No significant abnormalities. VISUALIZED UPPER ABDOMEN: Normal. OTHER FINDINGS: Linear density overlies the neck; correlate for foreign body. IMPRESSION: Linear density overlies the neck; correlate for foreign body. No acute infiltrate.
[2017-02-01] MEDS ORDERED: Morphine 4 mg/ml ISec IVP PRN (09:30)
--- NOTE | 2017-02-01 12:03 | HP ---
HISTORY OF PRESENT ILLNESS: The patient is an 81-year-old known to me from multiple previous admissi ons. The patient states she was having left lower quadrant discomfort going on for 2 days, but yeste rday the pain got worse. She was unable to stand up, so her son had to carry her to the car to bring her to the Emergency Room. The patient does admit that she has more often constipation and she does not have any rectal bleeding. No nausea, vomiting, no diarrhea, no urinary symptoms. The patient w as recently admitted. She was found to have pyelonephritis. At that point, she was treated with ant ibiotics. She was admitted on 12/28/2016 and she received a course of antibiotics, received physical therapy and was sent home. PAST MEDICAL HISTORY: Also significant for: 1. Chronic degenerative disk disease. 2. Morbid obesity. 3. Hypertension. 4. Hypothyroidism. 5. Hyperlipidemia. ALLERGIES: She has multiple allergies includin. AMITRIPTYLINE. 2. ASPIRIN. 3. KEFLEX. 4. CIPRO. 5. GABAPENTIN. 6. LACTOSE. 7. PENICILLIN. 8. PORK. 9. SHELLFISH. 10. DETROL. 11. TOMATOES. 12. BEE VENOM. 13. DUST. 14. DYES. 15. GRASS. 16. MOLD. 17. POLLEN. 18. RAGWEED. 19. SURGICAL TAPE. MEDICATIONS AT HOME: She is on levothyroxine 50 mcg daily, hydrochlorothiazide 25 daily, famotidine 20 mg daily. SOCIAL HISTORY: She lives with her son. Denies smoking, drinking or alcohol use. REVIEW OF SYSTEMS: Significant for left lower quadrant discomfort and constipation. She states her pain is better since she got a few doses of morphine. PHYSICAL EXAMINATION: GENERAL: She is awake and alert, communicative. VITAL SIGNS: She is afebrile, pulse 63, respirations 20, blood pressure 118/50. LUNGS: Bilateral good airflow, no rhonchi or crackle. HEART: S1, S2 audible. ABDOMEN: Soft, obese. She has left lower quadrant discomfort and has rebound and guarding. EXTREMITIES: Bilateral legs, no edema. LABORATORY DATA: WBC 6.4, hemoglobin 12, hematocrit 37, platelet 260. PT 10.9, INR 1.01. Chemistry : Sodium 135, potassium 4.3, chloride 101, CO2 22, BUN 20, creatinine 1.0, blood sugar of 114. Urin alysis shows large leukocyte, WBC 25-30. A CT scan of the abdomen and pelvis was done that shows acute sigmoid diverticulitis. X-ray chest is unremarkable. ASSESSMENT: 1. Acute sigmoid diverticulitis. 2. Degenerative disk disease. 3. Hypothyroidism. 4. Hypertension. PLAN: We will start her on Azactam and Flagyl. Since Azactam needs ID approval, will get Dr. Helga murillo for consult, Dr. Escalante for consult. We will keep her on IV fluids, clear liquid diet and IV antibiotic and analgesic as needed. Will follow up the patient in a.m. Norberto Ambrose MD cc: [phone] TT: 02/01/2017 12:02:32 anjali
[2017-02-01] MEDS: Levothyroxine 50 MCG TAB PO SCH (12:05)
[2017-02-01] MEDS: Linezolid 600 mg in D5W 300 ml 300 ML IVPB SCH (12:11)
--- NOTE | 2017-02-01 13:16 | CP.PCM.CON ---
History of Present Illness - History of Present Illness History of Present Illness: 81 year old female with PMH of uterine prolapse, history of UTI's, HTN, hypothyroidism, obesity with BMI [address] [facility] complaining of a 4-5 day history of worsening left flank and lower left abdominal pain. She has had history of UTI and was worried that it might be another episode of UTI. She however denies dysuria or hematuria. She did not develop fever or chills but had intermittent nausea but no vomiting, no chest pain, no SOB, no headache or dizziness, no rhinorrhea, no cough, no sore throat , no chest palpitations, no cough or colds, no sore throat, no diarrhea. In the ED, CT scan of the abdomen and pelvis revealed sigmoid diverticulitis. Infectious Diseases consult is requested to further evaluate and manage. Review of Systems - Review of Systems All systems: reviewed and no additional remarkable complaints except (as per HPI ) Past Patient History - Infectious Disease Hx of Infectious Diseases: None - Tetanus Immunizations Tetanus Immunization: Unknown - Past Medical History & Family History Past Medical History?: Yes Past Family History: Reviewed and not pertinent - Past Social History Smoking Status: Never Smoked Alcohol: None Drugs: Denies Home Situation {Lives}: With Family - CARDIAC Hx Hypertension: Yes - PULMONARY Hx Respiratory Tract Infection: Yes (chronic upper respiratory tract infection) - NEUROLOGICAL Hx Migraine: Yes - HEENT Hx HEENT Problems: No - RENAL Hx Chronic Kidney Disease: Yes Hx Kidney Stones: Yes - ENDOCRINE/METABOLIC Hx Diabetes Mellitus Type 2: Yes - HEMATOLOGICAL/ONCOLOGICAL Other/Comment: "low immune system", fibroid tumors and fibrocystic breasts - INTEGUMENTARY Hx Dermatological Problems: No - MUSCULOSKELETAL/RHEUMATOLOGICAL Hx Falls: Yes - GASTROINTESTINAL Hx Gastrointestinal Disorders: Yes (DIVERTICULITIS,CHOLECYSTECTOMY,GERD, TONSILLECTOMY) - GENITOURINARY/GYNECOLOGICAL Hx Genitourinary Disorders: Yes Hx Reproductive Disorders: Yes (UTERINE PROLAPSE) - PSYCHIATRIC Hx Psychophysiologic Disorder: No Hx Substance Use: No - SURGICAL HISTORY Hx Appendectomy: Yes (1951) Hx Cholecystectomy: Yes (1994) Other/Comment: tonsillectomy 1937 - ANESTHESIA Hx Anesthesia: Yes Hx Anesthesia Reactions: No Hx Malignant Hyperthermia: No Meds Allergies/Adverse Reactions: Allergies Allergy/AdvReac Type Severity Reaction Status Date / Time amitriptyline Allergy RASH Verified 12/27/16 16:53 aspirin Allergy RASH Verified 12/27/16 16:53 cephalexin Allergy RASH Verified 12/27/16 16:53 ciprofloxacin Allergy RASH Verified 12/27/16 16:53 gabapentin Allergy RASH Verified 12/27/16 16:53 lactase [From Dairy [employer]] Allergy DIARRHEA Verified 12/27/16 16:53 omeprazole Allergy RASH Verified 12/27/16 16:53 oxycodone Allergy NAUSEA Verified 12/27/16 16:53 Penicillins Allergy URTICARIA Verified 12/27/16 16:53 PORK Allergy unknown Verified 12/27/16 16:53 shellfish derived Allergy RASH Verified 12/27/16 16:53 tolterodine tartrate Allergy RASH Verified 12/27/16 16:53 [From Detrol] tomato Allergy RASH Verified 12/27/16 16:53 bee venom Allergy RASH Uncoded 12/27/16 16:53 dust Allergy unknown Uncoded 12/27/16 16:53 dyes Allergy unknown Uncoded 12/27/16 16:53 grass Allergy unknown Uncoded 12/27/16 16:53 mold Allergy unknown Uncoded 12/27/16 16:53 nuts Allergy ANGIOEDEMA Uncoded 12/27/16 16:53 pollen Allergy unknown Uncoded 12/27/16 16:53 ragweed Allergy unknown Uncoded 12/27/16 16:53 tape Allergy RASH Uncoded 12/27/16 16:53 trees Allergy unknown Uncoded 12/27/16 16:53 wool Allergy RASH Uncoded 12/27/16 16:53 - Medications Medications: Current Medications Metronidazole (Flagyl) 100 mls @ 100 mls/hr IVPB Q8 ROBERT PRN Reason: Protocol Stop: 02/01/17 09:00 Sodium Chloride (Sodium Chloride 0.9%) 1,000 mls @ 75 mls/hr [id number] Last Admin: 02/01/17 00:24 Dose: 75 mls/hr Ondansetron HCl (Zofran Inj) 4 mg IVP Q4H PRN PRN Reason: Nausea/Vomiting Physical Exam - Constitutional Appears: Non-toxic, No Acute Distress - Head Exam Head Exam: NORMAL INSPECTION - ENT Exam ENT Exam: Mucous Membranes Moist - Neck Exam Neck exam: Negative for: Lymphadenopathy, Meningismus - Respiratory Exam Respiratory Exam: Decreased Breath Sounds - Cardiovascular Exam Cardiovascular Exam: +S1, +S2 - GI/Abdominal Exam GI & Abdominal Exam: Soft. absent: Tenderness Results - Vital Signs Recent Vital Signs: Last Vital Signs Temp 97.5 F L 01/31/17 20:26 Pulse 65 01/31/17 20:26 Resp 16 02/01/17 00:29 BP 140/74 02/01/17 00:29 Pulse Ox 95 02/01/17 00:29 - Labs Result Diagrams: 01/31/17 21:00 01/31/17 21:00 Labs: Laboratory Results - last 24 hr 01/31/17 23:00 PT 10.9 INR 1.01 APTT 30.3 Assessment & Plan - Assessment and Plan (Free Text) Plan: Assessment Acute sigmoid diverticulitis history of urinary tract infection with E. coli uterine prolapse history of UTI's HTN hypothyroidism obesity with BMI 33 Plan started patient on Zyvox, Azactam and Flagyl pending blood cx Will monitor clinical response Will follow up GI evaluation and recommendations - patient may need colonoscopy weeks after recovery from this episode
--- NOTE | 2017-02-01 20:07 | CARD ---
APPROVED REPORT EKG Measurement Heart [id number] <Conclusion> Normal sinus rhythm Left axis deviation Abnormal ECG
[2017-02-02] MEDS: Aztreonam 1 Gm in NS 100mL 100 ML IVPB SCH ×3 (05:58→23:17)
[2017-02-02] MEDS: metroNIDAZOLE IV 500 mg/100 ml 100 ML IVPB SCH ×3 (05:59→22:00)
[2017-02-02] MEDS: Levothyroxine 50 MCG TAB PO SCH ×2 (08:23→10:02)
--- NOTE | 2017-02-02 09:24 | CON ---
DATE: 01/31/2017 This patient was seen and evaluated earlier today. Discussed with the nursing staff. This 81-year-o ld patient with a past medical history of urinary tract infection, history of vaginal prolapse status post pessary placement. The patient is being followed by Dr. Mix for periodic change of the pessa ry and placement check. The patient was recently in the hospital, discharged, now presented to the E mergency Room again with left-sided abdominal pain. The patient intermittently got worse for 4-5 day s. No vomiting, no diarrhea. The patient was recently in the hospital with a urinary tract infectio n. UTI was treated. OTHER PAST MEDICAL HISTORY: Significant as above, history of hypertension, obesity, dyslipidemia, de generative joint , chronic back pain. ALLERGIES: INCLUDE MULTIPLE ALLERGIES INCLUDING ALLERGY TO CIPRO, KEFLEX, PENICILLIN, SEASONAL ALSO. FAMILY HISTORY: Noncontributory. REVIEW OF SYSTEMS: Positive as above. Other systems reviewed. PHYSICAL EXAMINATION: GENERAL: The patient is lying on the bed, not in acute distress. VITAL SIGNS: Blood pressure is 118/50, respirations 20, pulse 63. HEENT: Atraumatic, anicteric. NECK: Supple. HEART: S1, S2 heard. LUNGS: Bilateral air entry present. ABDOMEN: Soft. There is no mass palpable. There is tenderness present in the left lower quadrant a chris. EXTREMITIES: No edema. No cyanosis. NEUROLOGIC: Alert, oriented. Moves all the extremities. LABORATORY DATA: Hemoglobin 12.4, hematocrit 37.3, WBCs 6.4, platelets 260. Chemistry is essentiall y LFTs unremarkable. IMPRESSION: This is an 81-year-old patient recently discharged from the hospital following treatment for urinary tract infection. Admitted with worsening of the left lower quadrant pain. No diarrhea. The CAT scan shows clinically is sigmoid diverticulitis. The patient does have mild tenderness pre sent. The patient's other comorbidities include hypothyroidism. Impression is acute diverticulitis. The patient presently on Azactam and Flagyl along with Zyvox, in view of the patient has MULTIPLE ALLERGIES INCLUDING PENICILLIN, CIPRO. Thank you very much for allowing us to participate in the care of the patient. We will continue to c losely follow up her care and suggest further management based on the clinical course. Amaya Escalante MD cc: [phone] TT: 02/02/2017 09:24:14 Confirmation # [id number] Dictation # [id number] en
[2017-02-02] MEDS: Linezolid 600 mg in D5W 300 ml 300 ML IVPB SCH (10:07)
[2017-02-02] MEDS: Nystatin 100,000 Units/gm Topical Pow(15 gm) TOP SCH ×3 (10:42→18:08)
[2017-02-02] MEDS: Sodium Chloride 0.9% 1,000 ML IV SCH (15:09)
--- NOTE | 2017-02-02 20:14 | PN ---
DATE: 02/02/2017 HISTORY OF PRESENT ILLNESS: The patient is an 81-year-old female admitted to the hospital with left lower abdominal pain. She was recently discharged from the hospital ____ she had history of renal st one and UTI. CAT scan of the abdomen was consistent with diverticulitis. UA is positive during this admission. She is on IV antibiotics. She is stating that her abdominal pain has improved a lot. S he is not ambulating too much. Able to walk in the room. Appetite is poor. No nausea, no vomiting, no fever. No cough with expectoration. REVIEW OF SYSTEMS: As per HPI. Rest of 12-point review of systems reviewed and negative. MEDICATIONS: Azactam 1 gram q.8 hours, Synthroid 50 mcg daily, Zyvox q.12 hours, Flagyl q.8 hours, m orphine 4 mg IV q.6 hours p.r.n., nystatin topical application, Zofran 4 mg IV q.4 hours p.r.n., IV f luid at 75 mL an hour. PHYSICAL EXAMINATION: GENERAL: Comfortable in bed, in no acute distress. VITAL SIGNS: Reviewed, stable. Temperature 97.5, heart rate is 73 per minute, blood pressure 139/86 , heart rate is 103 per minute, respiratory 20 per minute, pulse ox is 96% room air. HEENT: Normal. Oral mucosa moist. NECK: No lymphadenopathy. CHEST: Air entry present, equal bilateral. CARDIOVASCULAR: S1, S2 normal. No murmur, no gallop. ABDOMEN: Soft, nontender, nondistended. No rebound tenderness. EXTREMITIES: No edema. Mild erythematous lower extremity. CENTRAL NERVOUS SYSTEM: Alert, oriented x 3, no focal sensorimotor deficit. SKIN: Intact. No rash. LYMPHADENOPATHY: None. ASSESSMENT: 1. Sigmoid diverticulitis. 2. Neutrophilia. 3. Urinary tract infection. 4. Chronic back pain, chronic leg cellulitis. PLAN: She is currently on IV antibiotic. She is tolerating oral liquids. She is on IV morphine 4 m g q.6 hours p.r.n. for pain, continue same. Will continue IV fluid. Continue to advance the diet as tolerated. Will continue levothyroxine 50 mcg daily. She is on IV antibiotic, aztreonam, Zyvox and Flagyl. ID following. GI, Dr. Ava, following. Entire record on the [employer] reviewed. CAT s can reviewed. Discussed with the staff nurse. Discussed with the patient. Darlin Cunningham MD cc: [id number] TT: 02/02/2017 20:13:48 Confirmation # [id number] Dictation # [id number] sn
[2017-02-03] MEDS: Linezolid 600 mg in D5W 300 ml 300 ML IVPB SCH ×2 (00:40→09:37)
[2017-02-03] MEDS: metroNIDAZOLE IV 500 mg/100 ml 100 ML IVPB SCH ×3 (05:29→21:27)
--- NOTE | 2017-02-03 05:47 | PN ---
DATE: 02/02/2017 SUBJECTIVE: This patient was seen and evaluated earlier. Discussed with the nursing staff. The pat isaura is on full liquid diet now. Earlier episodes of loose bowel movements after started on full liq uid diet. He is concerned about it. PHYSICAL EXAMINATION: VITAL SIGNS: Temperature is 97.5, pulse 75, blood pressure 139/86 HEENT: Atraumatic, anicteric. NECK: Supple. HEART: S1, S2 heard. LUNGS: Bilateral air entry present. ABDOMEN: Soft. There is mild tenderness present in the left lower quadrant to deep palpation. IMPRESSION: Sigmoid diverticulitis. The patient has recently had a urinary tract infection, status post treatment. Other comorbidities include chronic back pain, leg cellulitis, history of chronic co nstipation, history of recent urinary tract infection. RECOMMENDATIONS: 1. Stool for C. difficile. 2. Slowly advance the diet to soft diet if the patient is doing well in a.m. Thank you very much for allowing us to participate in the care of the patient. Amaya Escalante MD cc: [phone] TT: 02/03/2017 05:47:08 Confirmation # [id number] Dictation # [id number] adán
[2017-02-03] MEDS: Aztreonam 1 Gm in NS 100mL 100 ML IVPB SCH ×2 (06:59→13:34)
[2017-02-03] MEDS: Nystatin 100,000 Units/gm Topical Pow(15 gm) TOP SCH ×3 (09:37→17:14)
[2017-02-03] MEDS: Levothyroxine 50 MCG TAB PO SCH (09:37)
[2017-02-03 11:02] LABS: HEMATOCRIT 39.4 % (36.0-48.0); MEAN CELL VOLUME 91.2 fL (80.0-105.0); MEAN CORPUSCULAR HEMOGLOBIN 30.1 pg (25.0-35.0); MEAN PLATELET VOLUME 9.9 fl (7.0-11.0); RED CELL DISTRIBUTION WIDTH 14.3 % (11.5-14.5); WHITE BLOOD COUNT 5.2 10^3/ul (4.5-11.0)
[2017-02-03 11:26] LABS: BILIRUBIN,TOTAL 0.4 mg/dL (0.2-1.3); CALCIUM 9.6 mg/dL (8.4-10.5); POTASSIUM 3.7 mmol/L (3.6-5.0); TOTAL PROTEIN 7.8 g/dL (5.8-8.3)
[2017-02-03] MEDS ORDERED: Sodium Chloride 0.9% 1,000 ML IV SCH (12:24)
--- NOTE | 2017-02-03 12:51 | PN ---
DATE: 02/03/2017 The patient is an 81-year-old, seen and examined, lying in bed. States she feels tired. She cannot sleep at night. It is very noisy for her. She is a light sleeper. Also complained of pain in the r ight arm where she has infusion going on. PHYSICAL EXAMINATION: VITAL SIGNS: She is afebrile, pulse 65, respirations 18, blood pressure 154/84. LUNGS: Bilateral fair airflow, no rhonchi or crackle. HEART: S1, S2 audible. ABDOMEN: Soft, nontender, no rebound, no guarding. NEUROLOGIC: The patient is awake and alert, communicative. LABORATORY EXAMINATION: WBCs 5.2, hemoglobin 13, hematocrit 39, platelets 261. Chemistry: Sodium 1 42, potassium 3.7, chloride 105, CO2 24, BUN 7, creatinine 1.1, blood sugar of 134. Blood cultures a re negative. Urine shows no growth, it has multiple species. ASSESSMENT: 1. Acute sigmoid diverticulitis, questionable pyelonephritis. 2. Degenerative disk disease. 3. Hypothyroidism. 4. History of pyelonephritis in the past. 5. Chronic leg cellulitis. PLAN: I will continue patient on current medical regimen. She is on Azactam. She is on metronidazo le. She is getting morphine as needed. She is on IV fluid. She is tolerating her liquid diet. I w ill cut down her fluids to 50 mL. Currently, she is on Zyvox. We will reevaluate patient in a.m. Norberto Ambrose MD cc: [phone] TT: 02/03/2017 12:50:54 Confirmation # [id number] Dictation # [id number] en
[2017-02-03] MEDS: Tmp-Smz 800 mg-160 mg DS Tab PO SCH ×2 (17:14→17:38)
--- NOTE | 2017-02-03 22:03 | CP.PCM.PN ---
Subjective - Date & Time of Evaluation Date of Evaluation: 02/03/17 Time of Evaluation: 10:40 - Subjective Subjective: Comfortable in bed, not in distress, less abdominal pain, has some loose stools. Objective - Vital Signs/Intake and Output Vital Signs (last 24 hours): Temp Pulse Resp BP Pulse Ox 97.4 F L 65 18 154/84 H 95 02/03/17 06:00 02/03/17 06:00 02/03/17 06:00 02/03/17 06:00 02/03/17 06:00 Intake and Output: 02/03/17 02/04/17 18:59 06:59 Intake Total 840 Balance 840 - Medications Medications: Current Medications Metronidazole (Flagyl) 100 mls @ 100 mls/hr IVPB Q8 ROBERT PRN Reason: Protocol Last Admin: 02/03/17 21:27 Dose: 100 mls/hr Sodium Chloride (Sodium Chloride 0.9%) 1,000 mls @ 50 mls/hr IV .Q20H [facility] Last Admin: 02/03/17 17:14 Dose: 50 mls/hr Levothyroxine Sodium (Synthroid) 50 mcg PO DAILY [facility] Last Admin: 02/03/17 09:37 Dose: 50 mcg Metronidazole (Flagyl) 500 mg PO Q8 ROBERT PRN Reason: Protocol Morphine Sulfate (Morphine) 4 mg IVP Q6H PRN PRN Reason: Pain, severe (8-10) Last Admin: 02/01/17 09:54 Dose: 4 mg Nystatin (Nystop Topical Powder) 1 gm TOP TID [facility] Last Admin: 02/03/17 17:14 Dose: 1 appl Ondansetron HCl (Zofran Inj) 4 mg IVP Q4H PRN PRN Reason: Nausea/Vomiting Last Admin: 02/03/17 21:27 Dose: 4 mg Trimethoprim/Sulfamethoxazole (Bactrim Ds Tab) 1 tab PO BID ROBERT PRN Reason: Protocol Last Admin: 02/03/17 17:38 Dose: Not Given - Labs Labs: 02/03/17 10:40 02/03/17 10:40 PT 10.9 Seconds (9.9-11.8) 01/31/17 23:00 INR 1.01 (0.93-1.08) 01/31/17 23:00 APTT 30.3 Seconds (23.7-30.8) 01/31/17 23:00 - Constitutional Appears: Non-toxic, No Acute Distress - Head Exam Head Exam: NORMAL INSPECTION - Respiratory Exam Respiratory Exam: Decreased Breath Sounds - Cardiovascular Exam Cardiovascular Exam: +S1, +S2 - GI/Abdominal Exam GI & Abdominal Exam: Soft. absent: Tenderness Assessment and Plan - Assessment and Plan (Free Text) Plan: Assessment Acute sigmoid diverticulitis, slowly improving loose stools R/O C. diff. associated diarrhea history of urinary tract infection with E. coli uterine prolapse history of UTI's HTN hypothyroidism obesity with BMI 33 Plan switched antibiotics to PO Bactrim and Flagyl (Day 3 of antibiotics), to complete 7 day course Will continue to monitor clinical response Will follow up GI evaluation and recommendations - patient may need colonoscopy weeks after recovery from this episode
--- NOTE | 2017-02-04 00:23 | PN ---
DATE: 02/03/2017 SUBJECTIVE: This patient was seen and evaluated earlier, discussed with Dr. Ambrose. The patient on full liquid diet and feels better. PHYSICAL EXAMINATION: VITAL SIGNS: Temperature 97.4, blood pressure is 154/84, pulse is 65, respirations 18, O2 saturation 98%. HEENT: Atraumatic. NECK: Supple. HEART: S1, S2 heard. LUNGS: Bilateral air entry present. ABDOMEN: Soft. There is no mass palpable. Mild tenderness present in the left lower quadrant area. No rebound or guarding. NEUROLOGIC: Alert, oriented. Moves all extremities. LABORATORY DATA: Hemoglobin 13, hematocrit 39.4, WBC 5.2, platelets . Chemistry is essentially unremarkable. IMPRESSION: This 81-year-old patient admitted with acute diverticulitis, history of recently treated urinary tract infection. PLAN: The patient is presently on Bactrim as per ID. The patient has multiple drug allergies and cl inically improving. We will advance the diet to a low residue soft diet in a.m. Continue to closely follow up her care. Thank you very much for allowing us to participate in the care of the patient. Amaya Escalante MD cc: [phone] TT: 02/04/2017 00:23:24 Confirmation # [id number] Dictation # [id number] chelsy
[2017-02-04 06:25] LABS: HEMATOCRIT 39.8 % (36.0-48.0); MEAN CELL VOLUME 91.7 fL (80.0-105.0); MEAN CORPUSCULAR HEMOGLOBIN 29.3 pg (25.0-35.0); MEAN CORPUSCULAR HGB CONC 31.9 g/dl (31.0-37.0); MEAN PLATELET VOLUME 10.2 fl (7.0-11.0); RED CELL DISTRIBUTION WIDTH 14.4 % (11.5-14.5); WHITE BLOOD COUNT 5.2 10^3/ul (4.5-11.0)
[2017-02-04 07:32] LABS: ALKALINE PHOSPHATASE 87 U/L (38-133); ALT/SGPT 29 U/L (7-56); AST/SGOT 26 U/L (15-39); BILIRUBIN,TOTAL 0.5 mg/dL (0.2-1.3); BLOOD UREA NITROGEN 6 mg/dL (7-21); CALCIUM 9.2 mg/dL (8.4-10.5); CARBON DIOXIDE 24 mmol/L (21-33); CHLORIDE 109 mmol/L (98-107); GFR AFRICAN-AMERICAN > 60; GLUCOSE,RANDOM 81 mg/dL (70-110); POTASSIUM 3.9 mmol/L (3.6-5.0); SODIUM 144 mmol/L (132-148); TOTAL PROTEIN 7.7 g/dL (5.8-8.3)
[2017-02-04] MEDS: Levothyroxine 50 MCG TAB PO SCH (09:44)
[2017-02-04] MEDS: Nystatin 100,000 Units/gm Topical Pow(15 gm) TOP SCH ×3 (09:44→17:39)
[2017-02-04] MEDS: Tmp-Smz 800 mg-160 mg DS Tab PO SCH ×2 (09:44→09:56)
[2017-02-04] MEDS: Aztreonam 1 Gm in NS 100mL 100 ML IVPB SCH ×2 (14:21→16:51)
--- NOTE | 2017-02-04 17:07 | PN ---
DATE: 02/04/2017 HISTORY OF PRESENT ILLNESS: Seen and examined at the bedside earlier this afternoon. The patient reporting loose BMs, but no bleeding. Abdominal pain is improving and she is tolerating her diet, awaiting for solids. She did have some nausea last night. Stool for C. diff was sent earlier today. VITAL SIGNS: Temperature is 97.4, her blood pressure is 154/84, pulse 65, respirations 18, 95 on room air. LABORATORY DATA: WBC is 5.2, hemoglobin is 12.7, hematocrit is 39.8, platelets are 271. Sodium 144, potassium 3.9, BUN is 6, creatinine is 1.0. LFTs are within normal limits. Urinary culture was negative for any growth. PHYSICAL EXAMINATION: HEENT: Sclera is anicteric. NECK: Supple. CARDIAC: S1, S2. LUNGS: Sounds are clear. ABDOMEN: With bowel sounds. It is soft. Has some mild tenderness to left quadrant, but no rebound, guarding, or organomegaly. ASSESSMENT: An 81-year-old female with acute diverticulitis and history of urinary tract infection. Her abdominal pain is improving. She is still having some loose bowel movements. Stool for Clostridium difficile was sent again. The patient states she is allergic to BACTRIM. She does have MULTIPLE DRUG ALLERGIES. PLAN: Our plan is to continue her antibiotics as per ID. The patient is on Azactam. Now, she is going to be started on Diflucan. She is on Flagyl. Diet is advanced to finely chopped diabetic diet. She is going to be transferred to TCU for continued IV antibiotics. She is going to have PICC line inserted. The patient was seen and case discussed with Dr. Escalante. Sarah Autumn BELKIS cc: [phone] TT: 02/04/2017 17:06:53 Confirmation # [id number] Dictation # [id number] lorrie CASTRO
[2017-02-04] MEDS ORDERED: Nystatin-Triamcinolone Ointment(30 gm) TOP SCH (18:00)
--- NOTE | 2017-02-04 19:13 | DS ---
DATE: 02/04/2017 SUBJECTIVE: The patient is an 81-year-old, seen and examined, complained of some abdominal discomfor t, complained of nausea and also is complaining about being stuck multiple times for blood work and n ot having good IV access. She states the nurses tell her that she thready veins and blow up. PHYSICAL EXAMINATION: GENERAL: She is awake and alert, communicative. VITAL SIGNS: She is afebrile, pulse 65, respirations 18, blood pressure 154/84. LUNGS: Bilateral fair airflow. No rhonchi or crackle. HEART: S1, S2 audible. ABDOMEN: Soft, nontender, no rebound, no guarding. NEUROLOGIC: The patient is awake and alert, communicative. EXTREMITIES: Bilateral legs, no edema. LABORATORY EXAMINATION: WBC is 5.2, hemoglobin 12.7, hematocrit 271. Chemistry: Sodium 144, potass ium 3.9, chloride 109, CO2 24, BUN 6, creatinine 1.0, blood sugar of 81. Blood cultures and urine cu ltures are negative. ASSESSMENT: 1. Sigmoid diverticulitis. 2. Hypertension. 3. Poor IV access. 4. Chronic degenerative disk disease. PLAN: The patient has multiple drug allergies. It is difficult to choose p.o. antibiotic to cover h er for acute sigmoid diverticulitis and on top of that, she has poor IV access. I will request for a PICC line and once PICC line is in, she will be transferred to TCU to complete her course of antibio tics. Norberto Ambrose MD cc: [phone] TT: 02/04/2017 19:12:37 Confirmation # [id number] Dictation # [id number] anjali
--- NOTE | 2017-02-04 20:07 | CP.PCM.PN ---
Subjective - Date & Time of Evaluation Date of Evaluation: 02/04/17 Time of Evaluation: 12:10 - Subjective Subjective: Comfortable in bed, less abdominal pain, complaining of loose stool this morning. Objective - Vital Signs/Intake and Output Vital Signs (last 24 hours): Temp Pulse Resp BP Pulse Ox 97.4 F L 65 18 154/84 H 95 02/03/17 06:00 02/03/17 06:00 02/03/17 06:00 02/03/17 06:00 02/03/17 06:00 - Medications Medications: Current Medications Alprazolam (Xanax) 0.5 mg PO TID PRN; Protocol PRN Reason: Anxiety Fluconazole (Diflucan) 150 mg PO DAILY [facility]ERT PRN Reason: Protocol Sodium Chloride (Sodium Chloride 0.9%) 1,000 mls @ 50 mls/hr IV .Q20H [facility] Last Admin: 02/03/17 17:14 Dose: 50 mls/hr Aztreonam (Azactam 1 Gm) 100 mls @ 100 mls/hr IVPB Q8 ROBERT PRN Reason: Protocol Stop: 02/09/17 14:01 Last Admin: 02/04/17 16:51 Dose: 100 mls/hr Levothyroxine Sodium (Synthroid) 50 mcg PO DAILY [facility] Last Admin: 02/04/17 09:44 Dose: 50 mcg Metronidazole (Flagyl) 500 mg PO Q8 ROBERT PRN Reason: Protocol Last Admin: 02/04/17 14:22 Dose: 500 mg Miconazole Nitrate (Monistat 7 Vaginal Cream) 0 ea VG HS ROBERT Morphine Sulfate (Morphine) 4 mg IVP Q6H PRN PRN Reason: Pain, severe (8-10) Last Admin: 02/01/17 09:54 Dose: 4 mg Nystatin (Nystop Topical Powder) 1 gm TOP TID [facility] Last Admin: 02/04/17 17:39 Dose: 1 appl Nystatin/Triamcinolone Acetonide (Nystatin/Triamcinolone Ointment) 0 gm TOP BID [facility] Ondansetron HCl (Zofran Inj) 4 mg IVP Q4H PRN PRN Reason: Nausea/Vomiting Last Admin: 02/03/17 21:27 Dose: 4 mg Zolpidem Tartrate (Ambien) 5 mg PO HS PRN; Protocol PRN Reason: Insomnia - Labs Labs: 02/04/17 05:00 02/04/17 05:10 PT 10.9 Seconds (9.9-11.8) 01/31/17 23:00 INR 1.01 (0.93-1.08) 01/31/17 23:00 APTT 30.3 Seconds (23.7-30.8) 01/31/17 23:00 - Constitutional Appears: Non-toxic, No Acute Distress - Head Exam Head Exam: NORMAL INSPECTION - ENT Exam ENT Exam: Mucous Membranes Moist - Neck Exam Neck Exam: absent: Lymphadenopathy, Meningismus - Respiratory Exam Respiratory Exam: Decreased Breath Sounds - Cardiovascular Exam Cardiovascular Exam: +S1, +S2 - GI/Abdominal Exam GI & Abdominal Exam: Soft. absent: Tenderness Assessment and Plan - Assessment and Plan (Free Text) Plan: Assessment Acute sigmoid diverticulitis, slowly improving loose stools R/O C. diff. associated diarrhea history of urinary tract infection with E. coli uterine prolapse history of UTI's HTN hypothyroidism obesity with BMI 33 Plan patient is apparently allergic to Bactrim; will continue Azactam and Flagyl ( Day 4 of antibiotics), to complete 7 day course Will continue to monitor clinical response Will follow up GI evaluation and recommendations - patient may need colonoscopy weeks after recovery from this episode
[2017-02-04 20:27] VITALS: BP 150/55; PULSE 68; RESP 20; TEMP 97.2; O2SAT 98
[2017-02-04] MEDS ORDERED: Miconazole 2% Vaginal Cream(45 gm) VG SCH (22:00)
== END 2017-02-04 20:45 | DRG 392 ==
LOC: ED 20:26 → ERH 22:31 → 3RNO 02-01 01:04
PROVIDERS: ADMIT Internal Medicine; ATTEND Internal Medicine
DX: K57.32 Diverticulitis of large intestine without perforation or abscess without bleeding (principal); L03.119 Cellulitis of unspecified part of limb; I10 Essential (primary) hypertension; E03.9 Hypothyroidism, unspecified; E78.5 Hyperlipidemia, unspecified; G89.29 Other chronic pain; N81.4 Uterovaginal prolapse, unspecified; M54.5 Low back pain; K59.09 Other constipation; E66.09 Other obesity due to excess calories; Z68.33 Body mass index [BMI] 33.0-33.9, adult; Z87.440 Personal history of urinary (tract) infections; Z87.442 Personal history of urinary calculi; Z90.49 Acquired absence of other specified parts of digestive tract; Z88.0 Allergy status to penicillin

== ENCOUNTER 2017-02-04 20:48 | Inpatient (IN) | payer OTHER ==
[2017-02-04 21:14] VITALS: BMI 32.0
[2017-02-04] MEDS ORDERED: Morphine 4 mg/ml ISec IVP PRN (21:16)
[2017-02-04] MEDS: Aztreonam 1 Gm in NS 100mL 100 ML IVPB SCH (22:39)
[2017-02-04] MEDS: Miconazole 2% Vaginal Cream(45 gm) VG SCH (22:39)
[2017-02-04] MEDS: Sodium Chloride 0.9% 1,000 ML IV SCH (22:51)
[2017-02-05] MEDS: Aztreonam 1 Gm in NS 100mL 100 ML IVPB SCH ×3 (05:02→22:19)
[2017-02-05] MEDS: Levothyroxine 50 MCG TAB PO SCH (05:03)
[2017-02-05] MEDS: Sodium Chloride 0.9% 1,000 ML IV SCH ×2 (05:03→22:19)
--- NOTE | 2017-02-05 08:21 | PN ---
DATE: 02/04/2017 ADDENDUM This is an addendum to the GI progress report dictated by Sarah Leyva NP. The patient was seen and evaluated earlier. The patient's family was at bedside. Tolerating diet. Abdominal discomfort has improved. The patient's Bactrim was discontinued as the patient was ALLERGI C TO BACTRIM. The patient has history of multiple drug allergies. Continue the antibiotics as per I D. Clinically, diverticulitis has improved. The patient was also recently treated for urinary tract infection. The ideal plan is to complete the antibiotic therapy and consider elective colonoscopy i n 4 weeks' time. Thank you very much for allowing us to participate in the care of the patient. Amaya Escalante MD cc: [phone] TT: 02/05/2017 08:20:37 Confirmation # [id number] Dictation # [id number] en
[2017-02-05] MEDS ORDERED: Aztreonam 1 Gm in NS 100mL 100 ML IVPB SCH (10:28)
[2017-02-05] MEDS: Nystatin 100,000 Units/gm Topical Pow(15 gm) TOP SCH ×3 (10:28→18:00)
[2017-02-05] MEDS: Nystatin-Triamcinolone Ointment(30 gm) TOP SCH ×2 (10:29→18:00)
--- NOTE | 2017-02-05 12:07 | PN ---
DATE: 02/05/2017 Seen and examined at the bedside this morning. She reports having bowel movement, slightly loose. No bleeding. Abdominal pain present, but slight improvement. No nausea or vomiting. No reports of any overt GI bleed. VITAL SIGNS: Temperature is 98.1, blood pressure 150/68, pulse 73, respirations 18, 96% on room air. No new labs are noted for today. PHYSICAL EXAMINATION: HEENT: Sclera is anicteric. NECK: Supple. CARDIAC: S1, S2. LUNGS: Clear. ABDOMEN: With bowel sounds, soft, mild tenderness to left quadrant. No rebound or guarding or organomegaly. ASSESSMENT: An 81-year-old female with improving diverticulitis, history of urinary tract infection. The patient's abdominal pain improving. History of hypertension and chronic degenerative disk disease. The patient with MULTIPLE DRUG ALLERGIES. PLAN: The patient is on IV antibiotics. She is getting Azactam IV and p.o. Flagyl. She also will continue her diet. She is on finely chopped diarrhea management diet. Will put low residual. The patient was seen and case discussed with Dr. Escalante. Sarah TAMAYO cc: [phone] TT: 02/05/2017 12:06:49 Confirmation # [id number] Dictation # [id number] en MTDD
[2017-02-05] MEDS: Miconazole 2% Vaginal Cream(45 gm) VG SCH (22:19)
--- NOTE | 2017-02-05 23:02 | CP.PCM.CON ---
History of Present Illness - History of Present Illness History of Present Illness: 81 year old female with PMH of uterine prolapse, history of UTI's, HTN, hypothyroidism, obesity with BMI 31 was initially admitted in [facility] because of abdominal pain and was found to have acute sigmoid divericulitis and has been on treatment with antibiotics with improvement. She is now transferred to [facility] for continued medical therapy and physical rehabilitation. Infectious Diseases consult is requested to continue her antibiotics management. Currently the patient is comfortable in bed, not in distress. She denies fever or chills, no nausea or vomiting, no chest pain, no SOB, no headache or dizziness, no rhinorrhea, no cough, no sore throat, no chest palpitations, no cough or colds, no sore throat, no diarrhea. Review of Systems - Review of Systems All systems: reviewed and no additional remarkable complaints except (as per HPI ) Past Patient History - Infectious Disease Hx of Infectious Diseases: None - Tetanus Immunizations Tetanus Immunization: Unknown - Past Medical History & Family History Past Medical History?: Yes - Past Social History Smoking Status: Never Smoked - CARDIAC Hx Hypercholesterolemia: Yes Hx Hypertension: Yes - PULMONARY Hx Respiratory Tract Infection: Yes (chronic upper respiratory tract infection) - NEUROLOGICAL Hx Migraine: Yes - HEENT Hx HEENT Problems: No - RENAL Hx Chronic Kidney Disease: Yes Hx Kidney Stones: Yes - ENDOCRINE/METABOLIC Hx Diabetes Mellitus Type 2: Yes - HEMATOLOGICAL/ONCOLOGICAL Other/Comment: "low immune system", fibroid tumors and fibrocystic breasts - INTEGUMENTARY Hx Dermatological Problems: No - MUSCULOSKELETAL/RHEUMATOLOGICAL Hx Arthritis: Yes - GASTROINTESTINAL Hx Gastrointestinal Disorders: Yes (DIVERTICULITIS,CHOLECYSTECTOMY,GERD, TONSILLECTOMY) - GENITOURINARY/GYNECOLOGICAL Hx Genitourinary Disorders: Yes - PSYCHIATRIC Hx Psychophysiologic Disorder: No - SURGICAL HISTORY Hx Appendectomy: Yes (1951) Hx Cholecystectomy: Yes (1994) Other/Comment: tonsillectomy 1937 - ANESTHESIA Hx Anesthesia: Yes Hx Anesthesia Reactions: No Hx Malignant Hyperthermia: No Meds Allergies/Adverse Reactions: Allergies Allergy/AdvReac Type Severity Reaction Status Date / Time amitriptyline Allergy RASH Verified 02/05/17 04:07 aspirin Allergy RASH Verified 02/05/17 04:07 cephalexin Allergy RASH Verified 02/05/17 04:07 ciprofloxacin Allergy RASH Verified 02/05/17 04:07 gabapentin Allergy RASH Verified 02/05/17 04:07 lactase [From [employer]] Allergy DIARRHEA Verified 02/05/17 04:07 omeprazole Allergy RASH Verified 02/05/17 04:07 oxycodone Allergy NAUSEA Verified 02/05/17 04:07 Penicillins Allergy URTICARIA Verified 02/05/17 04:07 PORK Allergy unknown Verified 02/05/17 04:07 shellfish derived Allergy RASH Verified 02/05/17 04:07 tolterodine tartrate Allergy RASH Verified 02/05/17 04:07 [From [employer]] tomato Allergy RASH Verified 02/05/17 04:07 bee venom Allergy RASH Uncoded 12/27/16 16:53 dust Allergy unknown Uncoded 12/27/16 16:53 dyes Allergy unknown Uncoded 12/27/16 16:53 grass Allergy unknown Uncoded 12/27/16 16:53 mold Allergy unknown Uncoded 12/27/16 16:53 nuts Allergy ANGIOEDEMA Uncoded 12/27/16 16:53 pollen Allergy unknown Uncoded 12/27/16 16:53 ragweed Allergy unknown Uncoded 12/27/16 16:53 tape Allergy RASH Uncoded 12/27/16 16:53 trees Allergy unknown Uncoded 12/27/16 16:53 wool Allergy RASH Uncoded 12/27/16 16:53 - Medications Medications: Current Medications Alprazolam (Xanax) 0.5 mg PO TID PRN; Protocol PRN Reason: Anxiety Fluconazole (Diflucan) 150 mg PO DAILY [facility] PRN Reason: Protocol Last Admin: 02/05/17 10:27 Dose: Not Given Sodium Chloride (Sodium Chloride 0.9%) 1,000 mls @ 50 mls/hr IV .Q20H [facility] Last Admin: 02/05/17 22:19 Dose: 50 mls/hr Aztreonam (Azactam 1 Gm) 100 mls @ 100 mls/hr IVPB 0600,1400,2200 [facility] PRN Reason: Protocol Stop: 02/12/17 14:01 Last Admin: 02/05/17 22:19 Dose: 100 mls/hr Levothyroxine Sodium (Synthroid) 50 mcg PO 0600 [facility] Last Admin: 02/05/17 05:03 Dose: 50 mcg Metronidazole (Flagyl) 250 mg PO 0600,1400,2200 [facility] PRN Reason: Protocol Last Admin: 02/05/17 22:19 Dose: 250 mg Miconazole Nitrate (Monistat 7 Vaginal Cream) 0 ea VG HS [facility] Last Admin: 02/05/17 22:19 Dose: 1 applic Morphine Sulfate (Morphine) 4 mg IVP Q6H PRN PRN Reason: Pain, severe (8-10) Nystatin (Nystop Topical Powder) 0 gm TOP TID [facility] Last Admin: 02/05/17 18:00 Dose: 1 applic Nystatin/Triamcinolone Acetonide (Nystatin/Triamcinolone Ointment) 0 gm TOP BID [facility] Last Admin: 02/05/17 18:00 Dose: Not Given Ondansetron HCl (Zofran Inj) 4 mg IVP Q4H PRN PRN Reason: Nausea/Vomiting Last Admin: 02/05/17 12:52 Dose: 4 mg Zolpidem Tartrate (Ambien) 5 mg PO HS PRN; Protocol PRN Reason: Insomnia Physical Exam - Constitutional Appears: Non-toxic, No Acute Distress - Head Exam Head Exam: NORMAL INSPECTION - ENT Exam ENT Exam: Mucous Membranes Moist - Neck Exam Neck exam: Negative for: Lymphadenopathy, Meningismus - Cardiovascular Exam Cardiovascular Exam: +S1, +S2 - GI/Abdominal Exam GI & Abdominal Exam: Soft. absent: Tenderness Results - Vital Signs Recent Vital Signs: Last Vital Signs Temp 97.4 F L 02/05/17 16:00 Pulse 62 02/05/17 16:00 Resp 18 02/05/17 16:00 BP 123/60 02/05/17 16:00 Pulse Ox 96 02/05/17 16:00 Assessment & Plan - Assessment and Plan (Free Text) Plan: Assessment Acute sigmoid diverticulitis, slowly improving loose stools R/O C. diff. associated diarrhea history of urinary tract infection with E. coli uterine prolapse history of UTI's HTN hypothyroidism obesity with BMI 33 Plan patient is apparently allergic to Bactrim; will continue Azactam and Flagyl ( Day 5 of antibiotics), to complete 7 day course Will continue to monitor clinical response Will follow up GI evaluation and recommendations - patient may need colonoscopy weeks after recovery from this episode
--- NOTE | 2017-02-05 23:26 | HP ---
HISTORY OF PRESENT ILLNESS: The patient is an 81-year-old, seen and examined. The patient was initi ally admitted for left lower quadrant pain. She had a CT scan done on 01/31 shows sigmoid diverticul itis, colitis. The patient has multiple drug allergies and she was only sensitive to IV antibiotics, so she was initially treated on acute care floor, but she needed further IV antibiotics. She is jason ng transferred to TCU to complete her course of antibiotics and monitor her closely. PAST MEDICAL HISTORY: Significant for: 1. Degenerative disk disease. 2. Hypertension. 3. Hypothyroidism. 4. Morbid obesity. 5. Hyperlipidemia. ALLERGIES: THE PATIENT HAS MULTIPLE ALLERGIES INCLUDING RAGWEED, POLLEN, MOLDS, GRASS, DYES, DUST, B EE VENOM, TOMATOES, DETROL, PORK, PENICILLIN, LACTOSE, GABAPENTIN, CIPRO, KEFLEX, ASPIRIN, AMITRIPTYL INE. SOCIAL HISTORY: She lives with her son. Denies smoking or drinking. MEDICATIONS AT HOME: She is on levothyroxine 50 mcg daily, hydrochlorothiazide 25 daily, famotidine 20 mg twice a day. PHYSICAL EXAMINATION: GENERAL: She is awake and alert, communicative. VITAL SIGNS: She is afebrile, pulse 62, respirations 18, blood pressure /60. LUNGS: Bilateral good airflow, no rhonchi or crackle. HEART: S1, S2 audible. No murmur. ABDOMEN: Soft, nontender, obese. No hepatosplenomegaly. NEUROLOGIC: She is awake and alert, able to communicate. EXTREMITIES: Bilateral leg no edema. ASSESSMENT: 1. Sigmoid diverticulitis, improving. 2. History of pyelonephritis. 3. Morbid obesity. 4. Degenerative disk disease. 5. Peptic ulcer disease. PLAN: We will continue patient on current medical treatment. We will follow up her CBC, CMP intermi ttently and reevaluate the patient in a.m. Norberto Ambrose MD cc: [phone] TT: 02/05/2017 23:26:34 in
[2017-02-06] MEDS: Aztreonam 1 Gm in NS 100mL 100 ML IVPB SCH ×3 (05:59→22:00)
[2017-02-06] MEDS: Levothyroxine 50 MCG TAB PO SCH (06:00)
[2017-02-06] MEDS: Nystatin 100,000 Units/gm Topical Pow(15 gm) TOP SCH ×3 (09:27→17:15)
[2017-02-06] MEDS: Nystatin-Triamcinolone Ointment(30 gm) TOP SCH ×2 (09:28→17:17)
[2017-02-06] MEDS: Sodium Chloride 0.9% 1,000 ML IV SCH ×2 (13:48→23:23)
--- NOTE | 2017-02-06 17:14 | PN ---
DATE: 02/06/2017 Seen and examined at the bedside in TCU earlier today. She is out of bed in a chair and does report feeling a bit better. Abdominal pain is improved. She had a soft bowel movement this morning. No m ore abdominal pain. Tolerated her breakfast. No new complaints. VITAL SIGNS: Temperature is 98.1, blood pressure 150/68, pulse 72, respirations 18, 96 on room air. No new labs are noted for today. PHYSICAL EXAMINATION: HEENT: Sclerae are anicteric. NECK: Supple. CARDIAC: S1, S2. LUNGS: Sounds are clear. ABDOMEN: With bowel sounds, soft, nontender on palpation. No rebound, guarding, or organomegaly. ASSESSMENT: This is an 81-year-old female with history of urinary tract infection and improved abdom inal pain. She had acute diverticulitis, which is improving. Her other comorbidities are hypertensi on and chronic degenerative disk disease. She also has multiple drug allergies. PLAN: Continue diet as tolerated. She is currently on finely chopped diet. She is on IV antibiotic s of Azactam. She is also on Flagyl. Has a vaginal infection and is getting Monistat. Get Diflucan . On gentle IV fluids as per ID. The patient was seen and case discussed with Dr. Escalante. Sarah TAMAYO cc: 451 TT: 02/06/2017 17:14:07 Confirmation # [id number] Dictation # [id number] anjali
--- NOTE | 2017-02-06 18:46 | PN ---
DATE: 02/06/2017 The patient is an 81-year-old, seen and examined. She states she feels a lot better today and less a bdominal pain, had a loose bowel movement. PHYSICAL EXAMINATION: VITAL SIGNS: She is afebrile, pulse 62, respirations 18, blood pressure 123/60. LUNGS: Bilateral fair airflow, no rhonchi or crackle. HEART: S1, S2 audible. No murmur. ABDOMEN: Soft, nontender, no rebound, no guarding. NEUROLOGIC: The patient is awake and alert, communicative. ASSESSMENT: 1. Sigmoid diverticulitis. 2. Hypertension. 3. Hypothyroidism. 4. Degenerative disk disease. 5. Leukocytosis, improving. PLAN: The patient is clinically stable. She is tolerating her soft diet. I will continue her on cu rrent antibiotic that is Azactam and metronidazole and will evaluate patient in a.m. Discharge plan over the weekend probably. Norberto Ambrose MD cc: [phone] TT: 02/06/2017 18:45:32 Confirmation # [id number] Dictation # [id number] en
[2017-02-06] MEDS: Miconazole 2% Vaginal Cream(45 gm) VG SCH (22:02)
--- NOTE | 2017-02-06 22:23 | PN ---
DATE: 02/06/2017 The patient is in bed in no acute distress, was seen in room 304. PHYSICAL EXAMINATION: VITAL SIGNS: Temperature is 97, blood pressure is 120/60, respiratory rate of 16. HEENT: Unremarkable. NECK: Supple. LUNGS: Have decreased breath sounds. HEART: Normal S1, S2. ABDOMEN: Soft, nontender. LABORATORY DATA: Reviewed. ASSESSMENT AND PLAN: An 81-year-old female with acute sigmoid diverticulitis slowly improving on Aza ctam and Flagyl. Review of the medications reveals the patient's Flagyl and Azactam to be active. W e will follow closely with you. Anjum Simon MD cc: 350 TT: 02/06/2017 22:22:22 Confirmation # [id number] Dictation # [id number] adán
[2017-02-07] MEDS: Aztreonam 1 Gm in NS 100mL 100 ML IVPB SCH ×3 (05:39→22:08)
[2017-02-07] MEDS: Levothyroxine 50 MCG TAB PO SCH (05:39)
[2017-02-07] MEDS: Nystatin 100,000 Units/gm Topical Pow(15 gm) TOP SCH ×3 (09:58→18:50)
[2017-02-07] MEDS: Sodium Chloride 0.9% 1,000 ML IV SCH (09:59)
[2017-02-07] MEDS: Nystatin-Triamcinolone Ointment(30 gm) TOP SCH ×2 (10:01→18:50)
--- NOTE | 2017-02-07 18:17 | PN ---
DATE: 02/07/2017 SUBJECTIVE: The patient is an 81-year-old, seen and examined, sitting in chair, seems to be comforta ble, some left lower quadrant discomfort, but much better than before. No nausea, vomiting or diarrh ea. PHYSICAL EXAMINATION: VITAL SIGNS: She is afebrile, pulse is 75, respirations 18, blood pressure . LUNGS: Bilateral good airflow, no rhonchi or crackle. HEART: S1, S2 audible. ABDOMEN: Soft, nontender, no rebound, no guarding. NEUROLOGIC: She is awake and alert, communicative, ambulatory. ASSESSMENT AND PLAN: 1. Sigmoid diverticulitis seems to be resolving. 2. Pyelonephritis seems to be resolving. 3. Degenerative disk disease. 4. Electrolyte imbalance, improving. PLAN: I will advance diet to low residual soft diet and continue antibiotics and will reevaluate the patient in a.m. Norberto Ambrose MD cc: 413 TT: 02/07/2017 18:16:47 Confirmation # [id number] Dictation # [id number] ln
--- NOTE | 2017-02-07 19:26 | PN ---
DATE: 02/07/2017 SUBJECTIVE: The patient seen early this morning in room 304, doing much better. She has no nausea. Tolerating the medications. PHYSICAL EXAMINATION: VITAL SIGNS: Temperature is 97, blood pressure is 160/70, respiratory rate of 18. HEENT: Unremarkable. NECK: Supple. LUNGS: Have decreased breath sounds. HEART: Normal S1, S2. ABDOMEN: Soft, nontender. LABORATORY DATA: Noted. ASSESSMENT AND PLAN: This is an 81-year-old female with acute sigmoid diverticulitis, improving slow ly on Azactam and Flagyl and she is tolerating the Flagyl. She had a period of nausea. The Azactam is active. The Flagyl is active. We will continue the present course. Anjum Simon MD cc: 350 TT: 02/07/2017 19:26:33 Confirmation # [id number] Dictation # [id number] anjali
[2017-02-07] MEDS: Miconazole 2% Vaginal Cream(45 gm) VG SCH (22:57)
[2017-02-08] MEDS: Aztreonam 1 Gm in NS 100mL 100 ML IVPB SCH ×4 (05:28→22:52)
[2017-02-08] MEDS: Levothyroxine 50 MCG TAB PO SCH (05:30)
[2017-02-08] MEDS: Nystatin-Triamcinolone Ointment(30 gm) TOP SCH ×2 (09:36→17:45)
[2017-02-08] MEDS: Nystatin 100,000 Units/gm Topical Pow(15 gm) TOP SCH ×3 (09:36→17:45)
--- NOTE | 2017-02-08 17:54 | PN ---
DATE: 02/08/2017 SUBJECTIVE: The patient is 81 years old, seen and examined, lying in bed. She seems to be comfortab le. Still having left lower quadrant discomfort, more so on pushing. Having regular bowel movements . No diarrhea, no constipation. PHYSICAL EXAMINATION: VITAL SIGNS: She is afebrile, pulse 73, respirations 18, blood pressure 150/78. LUNGS: Bilateral fair airflow, no rhonchi or crackle. HEART: S1, S2 audible. ABDOMEN: Soft, nontender. Slight palpable left lower quadrant discomfort. NEUROLOGIC: She is awake and alert, communicative. ASSESSMENT AND PLAN: 1. Sigmoid diverticulitis. 2. History of questionable ventral hernia. 3. Degenerative disk disease. 4. History of pyelonephritis in the past. PLAN: Will continue the patient on current medication that includes Azactam, metronidazole and Zofra n as needed. I will request Dr. Franklin to evaluate the patient to rule out ventral hernia. Norberto Ambrose MD cc: [phone] TT: 02/08/2017 17:53:49 Confirmation # [id number] Dictation # [id number] dn
--- NOTE | 2017-02-08 19:06 | PN ---
DATE: 02/08/2017 The patient is in bed in no acute distress, nontoxic. PHYSICAL EXAMINATION: VITAL SIGNS: Temperature is 97, blood pressure is 150/70, respiratory rate of 18. HEENT: Unremarkable. NECK: Supple. LUNGS: Have decreased breath sounds. HEART: Normal S1, S2. ABDOMEN: Soft, nontender, no rebound, no guarding Review of the medications reveals the patient to be on Flagyl and aztreonam. ASSESSMENT AND PLAN: This is an 81-year-old female who was seen earlier this morning in room 304 wit h acute sigmoid diverticulitis on Azactam, Flagyl, is ALLERGIC TO PENICILLIN. Will continue the pres ent course. Dr. Ambrose's note is reviewed. Anjum Simon MD cc: 350 TT: 02/08/2017 19:05:50 Confirmation # [id number] Dictation # [id number] jn
[2017-02-08] MEDS: Miconazole 2% Vaginal Cream(45 gm) VG SCH (21:37)
--- NOTE | 2017-02-08 22:06 | CP.PCM.CON ---
<French Quintero - Last Filed: 02/09/17 05:39> History of Present Illness - History of Present Illness History of Present Illness: Surgery: Dr. Franklin CC: Abd pain HPI: 81F w. pmh of HTN, hyperlipidemia, hypothyroidism, DM, GERD, UTI, kidney stones, and uterine prolapse initially presented to on 01/31 for sigmoid diverticulitis. The pt was treated w. abx and has been responding well. She has been transferred to TCU for continued abx management. Surgery has been consulted for a questionable ventral hernia. Pt states that she has had a hernia for about 5-6 yrs. She states it causes intermittent discomfort and feels like a menstrual cramp. She has that the discomfort has been more persistent over the last few days. She has seen her PMD in the past and has advised against surgery given her age and commorbidities. When seen today in TCU , pt complains of fatigue, difficulty sleeping, decreased appetite, and intermittent nausea/vomiting. she denies F/C. PMH: HTN, hyperlipidemia, hypothyroidism, DM, GERD, UTI, kidney stones, and uterine prolapse PSH: Tonsils, appendix, gallbladder ALL: In chart Meds: MAR reviewed Social: No ETOH/tobacco/drugs Fhx: non-contributory Review of Systems - Review of Systems All systems: reviewed and no additional remarkable complaints except (HPI) Past Patient History - Infectious Disease Hx of Infectious Diseases: None - Tetanus Immunizations Tetanus Immunization: Unknown - Past Medical History & Family History Past Medical History?: Yes - Past Social History Smoking Status: Never Smoked - CARDIAC Hx Hypercholesterolemia: Yes Hx Hypertension: Yes - PULMONARY Hx Respiratory Tract Infection: Yes (chronic upper respiratory tract infection) - NEUROLOGICAL Hx Migraine: Yes - HEENT Hx HEENT Problems: No - RENAL Hx Chronic Kidney Disease: Yes Hx Kidney Stones: Yes - ENDOCRINE/METABOLIC Hx Diabetes Mellitus Type 2: Yes - HEMATOLOGICAL/ONCOLOGICAL Other/Comment: "low immune system", fibroid tumors and fibrocystic breasts - INTEGUMENTARY Hx Dermatological Problems: No - MUSCULOSKELETAL/RHEUMATOLOGICAL Hx Arthritis: Yes - GASTROINTESTINAL Hx Gastrointestinal Disorders: Yes (DIVERTICULITIS,CHOLECYSTECTOMY,GERD, TONSILLECTOMY) - GENITOURINARY/GYNECOLOGICAL Hx Genitourinary Disorders: Yes - PSYCHIATRIC Hx Psychophysiologic Disorder: No - SURGICAL HISTORY Hx Appendectomy: Yes (1951) Hx Cholecystectomy: Yes (1994) Other/Comment: tonsillectomy 1937 - ANESTHESIA Hx Anesthesia: Yes Hx Anesthesia Reactions: No Hx Malignant Hyperthermia: No Meds Allergies/Adverse Reactions: Allergies Allergy/AdvReac Type Severity Reaction Status Date / Time amitriptyline Allergy RASH Verified 02/05/17 04:07 aspirin Allergy RASH Verified 02/05/17 04:07 cephalexin Allergy RASH Verified 02/05/17 04:07 ciprofloxacin Allergy RASH Verified 02/05/17 04:07 gabapentin Allergy RASH Verified 02/05/17 04:07 omeprazole Allergy RASH Verified 02/05/17 04:07 oxycodone Allergy NAUSEA Verified 02/05/17 04:07 Penicillins Allergy URTICARIA Verified 02/05/17 04:07 PORK Allergy unknown Verified 02/05/17 04:07 shellfish derived Allergy RASH Verified 02/05/17 04:07 tolterodine tartrate Allergy RASH Verified 02/05/17 04:07 [From [facility]] tomato Allergy RASH Verified 02/05/17 04:07 bee venom Allergy RASH Uncoded 12/27/16 16:53 dust Allergy unknown Uncoded 12/27/16 16:53 dyes Allergy unknown Uncoded 12/27/16 16:53 grass Allergy unknown Uncoded 12/27/16 16:53 mold Allergy unknown Uncoded 12/27/16 16:53 nuts Allergy ANGIOEDEMA Uncoded 12/27/16 16:53 pollen Allergy unknown Uncoded 12/27/16 16:53 ragweed Allergy unknown Uncoded 12/27/16 16:53 tape Allergy RASH Uncoded 12/27/16 16:53 trees Allergy unknown Uncoded 12/27/16 16:53 wool Allergy RASH Uncoded 12/27/16 16:53 - Medications Medications: Current Medications Alprazolam (Xanax) 0.5 mg PO TID PRN; Protocol PRN Reason: Anxiety Aztreonam (Azactam 1 Gm) 100 mls @ 100 mls/hr IVPB 0600,1400,2200 [facility] PRN Reason: Protocol Stop: 02/12/17 14:01 Last Admin: 02/08/17 21:38 Dose: 100 mls/hr Levothyroxine Sodium (Synthroid) 50 mcg PO 0600 [facility] Last Admin: 02/08/17 05:30 Dose: 50 mcg Metronidazole (Flagyl) 250 mg PO 0600,1400,2200 [facility] PRN Reason: Protocol Last Admin: 02/08/17 21:37 Dose: 250 mg Miconazole Nitrate (Monistat 7 Vaginal Cream) 0 ea VG HS [facility] Last Admin: 02/08/17 21:37 Dose: 1 applic Nystatin (Nystop Topical Powder) 0 gm TOP TID [facility] Last Admin: 02/08/17 17:45 Dose: 1 applic Nystatin/Triamcinolone Acetonide (Nystatin/Triamcinolone Ointment) 0 gm TOP BID [facility] Last Admin: 02/08/17 17:45 Dose: 1 u Ondansetron HCl (Zofran Inj) 4 mg IVP Q4H PRN PRN Reason: Nausea/Vomiting Last Admin: 02/05/17 12:52 Dose: 4 mg Zolpidem Tartrate (Ambien) 5 mg PO HS PRN; Protocol PRN Reason: Insomnia Physical Exam - Constitutional Appears: Non-toxic, No Acute Distress - Head Exam Head Exam: ATRAUMATIC, NORMOCEPHALIC - Eye Exam Eye Exam: EOMI. absent: Scleral icterus - ENT Exam ENT Exam: Mucous Membranes Moist, Normal External Ear Exam - Neck Exam Neck exam: Positive for: Full Rom - Respiratory Exam Respiratory Exam: NORMAL BREATHING PATTERN. absent: Accessory Muscle Use, Respiratory Distress - GI/Abdominal Exam GI & Abdominal Exam: Soft, Tenderness (LLQ). absent: Distended, Firm, Guarding , Hernia, Rebound - Extremities Exam Extremities exam: Negative for: calf tenderness, pedal edema - Neurological Exam Neurological exam: Alert, Oriented x3 Results - Vital Signs Recent Vital Signs: Last Vital Signs Temp 97.8 F 02/08/17 16:00 Pulse 73 02/08/17 16:00 Resp 18 02/08/17 16:00 BP 158/78 H 02/08/17 16:00 Pulse Ox 96 02/08/17 16:00 Assessment & Plan - Assessment and Plan (Free Text) Assessment: 81F w. abd pain 2/2 diverticulitis consulted for questionable ventral hernia -CT of [address] mention of small hiatal hernia -no obvious hernia appreciated on exam -current discomfort most likely 2/2 diverticulitis -will d/w Dr. Franklin Zedoronitis PGY2 <Maldonado Franklin - Last Filed: 02/11/17 11:05> Meds - Medications Medications: Current Medications Alprazolam (Xanax) 0.5 mg PO TID PRN; Protocol PRN Reason: Anxiety Aztreonam (Azactam 1 Gm) 100 mls @ 100 mls/hr IVPB 0600,1400,2200 [facility] PRN Reason: Protocol Stop: 02/12/17 14:01 Last Admin: 02/11/17 05:54 Dose: 100 mls/hr Levothyroxine Sodium (Synthroid) 50 mcg PO 0600 [facility] Last Admin: 02/11/17 05:55 Dose: 50 mcg Metronidazole (Flagyl) 250 mg PO 0600,1400,2200 [facility] PRN Reason: Protocol Last Admin: 02/11/17 05:55 Dose: 250 mg Miconazole Nitrate (Monistat 7 Vaginal Cream) 0 ea VG HS [facility] Last Admin: 02/10/17 21:46 Dose: 1 applic Nystatin (Nystop Topical Powder) 0 gm TOP TID [facility] Last Admin: 02/10/17 17:49 Dose: 1 applic Nystatin/Triamcinolone Acetonide (Nystatin/Triamcinolone Ointment) 0 gm TOP BID [facility] Last Admin: 02/10/17 17:49 Dose: 1 u Ondansetron HCl (Zofran Inj) 4 mg IVP Q4H PRN PRN Reason: Nausea/Vomiting Last Admin: 02/05/17 12:52 Dose: 4 mg Zolpidem Tartrate (Ambien) 5 mg PO HS PRN; Protocol PRN Reason: Insomnia Results - Vital Signs Recent Vital Signs: Last Vital Signs Temp 98.2 F 02/11/17 10:00 Pulse 74 02/11/17 10:00 Resp 20 02/11/17 10:00 BP 125/65 02/11/17 10:00 Pulse Ox 96 02/11/17 10:00 - Labs Result Diagrams: 02/11/17 07:00 02/11/17 07:00 Labs: Laboratory Results - last 24 hr 02/11/17 02/11/17 07:00 07:00 WBC 4.9 RBC 4.38 Hgb 13.1 Hct 39.6 MCV 90.4 MCH 29.9 MCHC 33.1 RDW 15.1 H Plt Count 281 MPV 10.0 Gran % 58.5 Lymph % (Auto) 23.3 [place] % (Auto) 12.3 H Eos % (Auto) 4.5 Baso % (Auto) 1.4 Gran # 2.84 Lymph # 1.1 L [place] # 0.6 Eos # 0.2 Baso # 0.07 Sodium 141 Potassium 4.0 Chloride 107 Carbon Dioxide 25 Anion Gap 13 BUN 13 Creatinine 1.0 Est GFR ( Amer) > 60 Est GFR (Non-Af Amer) 53 Random Glucose 92 Calcium 9.2 Total Bilirubin 0.4 AST 27 ALT 43 Alkaline Phosphatase 73 Total Protein 7.4 Albumin 3.9 Globulin 3.6 Albumin/Globulin Ratio 1.1 Assessment & Plan - Assessment and Plan (Free Text) Assessment: Dx Sigmoid Diverticulitis-LLQ Pain/Distention abd wall NO Hernia found/CT Normal Rec o Reassure-Cont AB Rx This consult done under my direct supervision Elliot Franklin MD [facility]
[2017-02-09] MEDS: Levothyroxine 50 MCG TAB PO SCH (06:17)
[2017-02-09] MEDS: Aztreonam 1 Gm in NS 100mL 100 ML IVPB SCH ×3 (06:24→21:50)
--- NOTE | 2017-02-09 08:08 | CP.PCM.PCO ---
Physician Communication Note - Physician Communication Note Physician Communication Note: No clinical Hernia now-No surgery Indicated
[2017-02-09] MEDS: Nystatin-Triamcinolone Ointment(30 gm) TOP SCH ×2 (11:26→17:55)
[2017-02-09] MEDS: Nystatin 100,000 Units/gm Topical Pow(15 gm) TOP SCH ×3 (11:27→17:55)
--- NOTE | 2017-02-09 16:18 | PN ---
DATE: 02/09/2017 SUBJECTIVE: The patient is in bed, nontoxic, no fevers and no chills. PHYSICAL EXAMINATION: VITAL SIGNS: Temperature is 97, blood pressure is 120/70, respiratory rate of 16. HEENT: Unremarkable. NECK: Supple. LUNGS: Have decreased breath sounds. HEART: Normal S1, S2. ABDOMEN: Soft, nontender. Review of the orders reveals the Flagyl and Azactam need to be continued, which I will do so. Dr. Chacha stanley' communication report is noted. ASSESSMENT AND PLAN: This is an 81-year-old female seen early this morning who stated she had a breanne od of dizziness yesterday when she stood up and was attributing it to the antibiotics; however, I ass ured her most likely not related to the antibiotics, and she is now feeling much better and will cont inue the antibiotics. She did have nausea from the Flagyl. Currently, the patient with acute sigmoi d diverticulitis on Azactam and p.o. Flagyl. ALLERGIC TO PENICILLIN. We will continue present cours e. Anjum Simon MD cc: [phone] TT: 02/09/2017 16:18:03 Confirmation # [id number] Dictation # [id number] an
[2017-02-09] MEDS: Miconazole 2% Vaginal Cream(45 gm) VG SCH (21:51)
[2017-02-10] MEDS: Aztreonam 1 Gm in NS 100mL 100 ML IVPB SCH ×3 (06:00→21:46)
[2017-02-10] MEDS: Levothyroxine 50 MCG TAB PO SCH (06:00)
--- NOTE | 2017-02-10 08:32 | PN ---
DATE: 02/09/2017 SUBJECTIVE: This patient was seen and evaluated earlier. The patient did have some discomfort , which has improved today. PHYSICAL EXAMINATION: VITAL SIGNS: Afebrile, blood pressure 120/70, respirations 16. HEENT: Atraumatic, anicteric. NECK: Supple. HEART: S1, S2 . ABDOMEN: Soft. Some mild tenderness on deep palpation present in the left lower quadrant area. IMPRESSION: This is an 81-year-old patient admitted with acute diverticulitis. The patient is on mu ltiple . Is on and Flagyl. consult was requested and this was reviewed. There is no obvious appreciated. The patient did have a urinary tract infection recently. The patient was negative. We would recommend to complete the course of antibiotics. Thank you . The patient will continue low residue diet. Amaya Escalante MD cc: [phone] TT: 02/09/2017 23:34:09 Confirmation # [id number] Dictation # [id number] mn
[2017-02-10] MEDS: Nystatin-Triamcinolone Ointment(30 gm) TOP SCH ×2 (10:56→17:49)
[2017-02-10] MEDS: Nystatin 100,000 Units/gm Topical Pow(15 gm) TOP SCH ×3 (10:56→17:49)
--- NOTE | 2017-02-10 13:27 | PN ---
DATE: 02/10/2017 The patient is an 81-year-old, seen and examined. She had an episode of dizziness early this morning , felt nauseous. Feeling better now. She has left leg pain. She still has left lower quadrant pain , was evaluated by surgical elastic knitter and there is plan for no surgical intervention. PHYSICAL EXAMINATION: GENERAL: She is awake and alert, communicative. VITAL SIGNS: She is afebrile, pulse 77, respirations 18, blood pressure . LUNGS: Bilateral fair airflow, no rhonchi or crackle. HEART: S1, S2 audible. No murmur. ABDOMEN: Soft, nontender, no rebound, no guarding. NEUROLOGIC: The patient is awake and alert, communicative, moves all extremities. EXTREMITIES: Bilateral legs, no edema. She has chronic stasis dermatitis and because of that, she h as discoloration of the lower extremities. ASSESSMENT AND PLAN: Left lower quadrant pain. She states pain is much better than before, but is d ifferent. She is still on Azactam and Flagyl. Stool for Clostridium difficile is pending, although she does not have diarrhea. So, patient will be finishing her course of antibiotic and we will make discharge plan according to ID decision. If patient to finish her course of antibiotic, will make discharge plan according to that. Norberto Ambrose MD cc: [phone] TT: 02/10/2017 13:26:02 Confirmation # [id number] Dictation # [id number]
--- NOTE | 2017-02-10 20:54 | PN ---
DATE: 02/10/2017 The patient is in bed in no acute distress, seen earlier today. PHYSICAL EXAMINATION: VITAL SIGNS: Temperature is 98, blood pressure is 120/70, respiratory rate 16. HEENT: Unremarkable. NECK: Supple. LUNGS: Have decreased breath sounds. HEART: Normal S1, S2. ABDOMEN: Soft. LABORATORY DATA: Reviewed. Dr. Ambrose's note is reviewed. Dr. Escalante's note is reviewed. ASSESSMENT AND PLAN: This is an 81-year-old female seen earlier today in room 304 with acute sigmoid diverticulitis on Azactam and Flagyl, ALLERGIC TO PENICILLIN AND appears to be improving. Azactam i s active, so is the Flagyl. Anjum Simon MD cc: 350 TT: 02/10/2017 20:53:00 Confirmation # [id number] Dictation # [id number] jn
[2017-02-10] MEDS: Miconazole 2% Vaginal Cream(45 gm) VG SCH (21:46)
[2017-02-11] MEDS: Aztreonam 1 Gm in NS 100mL 100 ML IVPB SCH ×3 (05:54→22:03)
[2017-02-11] MEDS: Levothyroxine 50 MCG TAB PO SCH (05:55)
[2017-02-11 07:35] LABS: ADD MANUAL DIFF? NO
[2017-02-11 07:38] LABS: BASO # 0.07 K/mm3 (0.0-2.0); BASO % 1.4 % (0.0-3.0); EOS # 0.2 (0.0-0.7); EOS % 4.5 % (1.5-5.0); GRAN # 2.84 (1.4-6.5); GRAN % 58.5 % (50.0-68.0); HEMATOCRIT 39.6 % (36.0-48.0); LYMPH # 1.1 (1.2-3.4); LYMPH % 23.3 % (22.0-35.0); MEAN CELL VOLUME 90.4 fL (80.0-105.0); MEAN CORPUSCULAR HEMOGLOBIN 29.9 pg (25.0-35.0); MEAN CORPUSCULAR HGB CONC 33.1 g/dl (31.0-37.0); MONO # 0.6 (0.1-0.6); MONO % 12.3 % (1.0-6.0); PLATELET COUNT 281 10^3/uL (120.0-450.0); RED CELL DISTRIBUTION WIDTH 15.1 % (11.5-14.5); WHITE BLOOD COUNT 4.9 10^3/ul (4.5-11.0)
[2017-02-11 07:51] LABS: ALB/GLOB RATIO 1.1 (1.1-1.8); ALKALINE PHOSPHATASE 73 U/L (38-133); ALT/SGPT 43 U/L (7-56); AST/SGOT 27 U/L (15-39); BILIRUBIN,TOTAL 0.4 mg/dL (0.2-1.3); BLOOD UREA NITROGEN 13 mg/dL (7-21); CALCIUM 9.2 mg/dL (8.4-10.5); CARBON DIOXIDE 25 mmol/L (21-33); CHLORIDE 107 mmol/L (95-110); GFR AFRICAN-AMERICAN > 60; GLUCOSE,RANDOM 92 mg/dL (70-110); SODIUM 141 mmol/L (132-148); TOTAL PROTEIN 7.4 g/dL (5.8-8.3)
[2017-02-11] MEDS: Nystatin-Triamcinolone Ointment(30 gm) TOP SCH ×2 (11:55→18:14)
--- NOTE | 2017-02-11 13:10 | PN ---
DATE: 02/11/2017 SUBJECTIVE: The patient is an 81-year-old, seen and examined, doing well, sitting in chair. Comfort able. Eating and tolerating. No nausea or vomiting. She still has left lower quadrant discomfort, but certainly has reduced significantly. PHYSICAL EXAMINATION: VITAL SIGNS: She is afebrile, pulse 74, respirations 20, blood pressure 125/65. LUNGS: Bilateral fair airflow, no rhonchi or crackle. HEART: S1, S2 audible. ABDOMEN: Soft, slight left lower quadrant discomfort palpable. No rebound, no guarding. NEUROLOGIC: She is awake and alert, communicative. LABORATORY EXAMINATION: WBC is 4.9, hemoglobin 13, hematocrit 39, platelets 281. Chemistry: Sodium 141, potassium 4.0, chloride 107, CO2 25, BUN 13, creatinine 1.0, blood sugar ____. ASSESSMENT AND PLAN: 1. Sigmoid diverticulitis, improving. 2. History of pyelonephritis, improved. 3. Degenerative disk disease. 4. Hypertension. 5. Hypothyroidism. PLAN: Will continue patient on current medication as recommended by ID. Will reach out to ID to see how much antibiotic needs to be given. Tentatively planned for discharge in the a.m. Norberto Ambrose MD cc: [phone] TT: 02/11/2017 13:09:24 Confirmation # [id number] Dictation # [id number] chelsy
--- NOTE | 2017-02-11 13:56 | PN ---
DATE: 02/11/2017 GI FOLLOWUP NOTE Seen and examined at the bedside this afternoon. She denies any nausea, vomiting. Complains of occasional left upper quadrant pain, is having soft bowel movements. No report of any bleeding. She is tolerating her diet. VITAL SIGNS: Temperature is 98.2, blood pressure 125/65, pulse 74, respirations 20, 96 on room air. LABORATORY DATA: Labs today: WBC 4.9. H and H are 13.1 and 39.6, platelets of 281. Sodium 141, K 4.0, BUN 13. Creatinine is 1.0. LFTs within normal limits. PHYSICAL EXAMINATION: HEENT: Sclerae are anicteric. NECK: Supple. CARDIAC: S1, S2. LUNGS: Clear. ABDOMEN: With bowel sounds, soft. She does have some mild tenderness to left upper quadrant. No rebound or guarding. EXTREMITIES: Maybe trace, no edema noted. Chronic discolorations of the lower extremities. She has a history of chronic stasis dermatitis. ASSESSMENT: Acute diverticulitis. She still occasionally gets left quadrant discomfort, history of multiple drug allergies, history of urinary tract infection. PLAN: Currently, she is on Azactam, Flagyl, and heart-healthy low diet. She is here for completing her antibiotic therapy. She was evaluated by surgery for a possible ventral hernia. No surgery indicated. No clinical hernia reported. The patient was seen and case discussed with Dr. Escalante. Sarah TAMAYO cc: [phone] TT: 02/11/2017 12:43:12 Confirmation # [id number] Dictation # [id number] jn MTDD
[2017-02-11] MEDS: Nystatin 100,000 Units/gm Topical Pow(15 gm) TOP SCH ×2 (18:16)
--- NOTE | 2017-02-11 18:17 | CP.PCM.PN ---
Subjective - Date & Time of Evaluation Date of Evaluation: 02/11/17 Time of Evaluation: 11:55 - Subjective Subjective: Comfortable in bed, not in distress, no fevers overnight. Objective - Vital Signs/Intake and Output Vital Signs (last 24 hours): Temp Pulse Resp BP Pulse Ox 97.8 F 65 20 119/54 L 96 02/11/17 06:00 02/11/17 06:00 02/11/17 06:00 02/11/17 06:00 02/11/17 06:00 - Medications Medications: Current Medications Alprazolam (Xanax) 0.5 mg PO TID PRN; Protocol PRN Reason: Anxiety Aztreonam (Azactam 1 Gm) 100 mls @ 100 mls/hr IVPB 0600,1400,2200 [facility] PRN Reason: Protocol Stop: 02/12/17 14:01 Last Admin: 02/11/17 05:54 Dose: 100 mls/hr Levothyroxine Sodium (Synthroid) 50 mcg PO 0600 [facility] Last Admin: 02/11/17 05:55 Dose: 50 mcg Metronidazole (Flagyl) 250 mg PO 0600,1400,2200 [facility] PRN Reason: Protocol Last Admin: 02/11/17 05:55 Dose: 250 mg Miconazole Nitrate (Monistat 7 Vaginal Cream) 0 ea VG HS [facility] Last Admin: 02/10/17 21:46 Dose: 1 applic Nystatin (Nystop Topical Powder) 0 gm TOP TID [facility] Last Admin: 02/10/17 17:49 Dose: 1 applic Nystatin/Triamcinolone Acetonide (Nystatin/Triamcinolone Ointment) 0 gm TOP BID [facility] Last Admin: 02/10/17 17:49 Dose: 1 u Ondansetron HCl (Zofran Inj) 4 mg IVP Q4H PRN PRN Reason: Nausea/Vomiting Last Admin: 02/05/17 12:52 Dose: 4 mg Zolpidem Tartrate (Ambien) 5 mg PO HS PRN; Protocol PRN Reason: Insomnia - Labs Labs: 02/11/17 07:00 02/11/17 07:00 - Constitutional Appears: Non-toxic, No Acute Distress - Head Exam Head Exam: NORMAL INSPECTION - ENT Exam ENT Exam: Mucous Membranes Moist - Neck Exam Neck Exam: absent: Lymphadenopathy, Meningismus - Respiratory Exam Respiratory Exam: Decreased Breath Sounds - Cardiovascular Exam Cardiovascular Exam: +S1, +S2 - GI/Abdominal Exam GI & Abdominal Exam: Soft. absent: Tenderness Assessment and Plan - Assessment and Plan (Free Text) Plan: Assessment Acute sigmoid diverticulitis, slowly improving loose stools R/O C. diff. associated diarrhea history of urinary tract infection with E. coli uterine prolapse history of UTI's HTN hypothyroidism obesity with BMI 33 Plan continue Azactam and Flagyl (Day 11 of antibiotics), to complete a 10-14 day course Will continue to monitor clinical response Will follow up GI evaluation and recommendations - patient may need colonoscopy weeks after recovery from this episode
[2017-02-11] MEDS: Miconazole 2% Vaginal Cream(45 gm) VG SCH (22:04)
[2017-02-12] MEDS: Aztreonam 1 Gm in NS 100mL 100 ML IVPB SCH ×2 (06:29→13:38)
[2017-02-12] MEDS: Levothyroxine 50 MCG TAB PO SCH (06:30)
[2017-02-12] MEDS: Nystatin-Triamcinolone Ointment(30 gm) TOP SCH (09:42)
[2017-02-12] MEDS: Nystatin 100,000 Units/gm Topical Pow(15 gm) TOP SCH ×2 (09:42→13:39)
[2017-02-12 11:19] VITALS: BP 136/82; PULSE 77; RESP 20; TEMP 97.5; O2SAT 96
--- NOTE | 2017-02-12 17:25 | CP.PCM.PN ---
Subjective - Date & Time of Evaluation Date of Evaluation: 02/12/17 Time of Evaluation: 12:05 - Subjective Subjective: Comfortable in bed, not in distress, no fevers overnight. Improved left lower quadrant pain, no diarrhea. Objective - Vital Signs/Intake and Output Vital Signs (last 24 hours): Temp Pulse Resp BP Pulse Ox 97.5 F L 77 20 136/82 96 02/12/17 10:00 02/12/17 10:00 02/12/17 10:00 02/12/17 10:00 02/12/17 10:00 Intake and Output: 02/12/17 02/12/17 06:59 18:59 Intake Total 600 Balance 600 - Labs Labs: 02/11/17 07:00 02/11/17 07:00 - Constitutional Appears: Non-toxic, No Acute Distress - Head Exam Head Exam: NORMAL INSPECTION - ENT Exam ENT Exam: Mucous Membranes Moist - Neck Exam Neck Exam: absent: Lymphadenopathy, Meningismus - Respiratory Exam Respiratory Exam: Decreased Breath Sounds - Cardiovascular Exam Cardiovascular Exam: +S1, +S2 - GI/Abdominal Exam GI & Abdominal Exam: Soft. absent: Tenderness Assessment and Plan - Assessment and Plan (Free Text) Plan: Assessment Acute sigmoid diverticulitis, clinically improved loose stools R/O C. diff. associated diarrhea history of urinary tract infection with E. coli uterine prolapse history of UTI's HTN hypothyroidism obesity with BMI 33 Plan on Azactam and Flagyl (Day 12 of antibiotics), to complete a 10-14 day course patient may need colonoscopy weeks after as an outpatient
--- NOTE | 2017-02-12 23:44 | DS ---
The patient was admitted with left lower quadrant pain. She was found to have sigmoid diverticulitis . SINCE THE PATIENT HAS MULTIPLE ALLERGIES INCLUDING CIPRO, KEFLEX, AND PENICILLIN, it was recommend ed by ID to start her on Azactam and Flagyl that she completed a course of almost 10 days, doing well . Still complaining of lower back pain. No fever or chills. No nausea or vomiting. No diarrhea. PHYSICAL EXAMINATION: VITAL SIGNS: The patient is afebrile, pulse 77, respirations 20, blood pressure 136/82. LUNGS: Bilateral fair airflow. No rhonchi or crackle. HEART: S1, S2 audible. No murmur. ABDOMEN: Soft, slight left lower quadrant discomfort palpable. No rebound. No guarding. NEUROLOGIC: The patient is awake and alert, communicative, ambulatory. EXTREMITIES: Bilateral legs: No edema. LABORATORY EXAM: There is no new lab available. ASSESSMENT: 1. Status post sigmoid diverticulitis. 2. Chronic degenerative disk disease. 3. Hypothyroidism. 4. Varicose veins. PLAN: The patient finished a course of antibiotics. She is being discharged home. She will resume her medications that includes patch to the area, hydrochlorothiazide, famotidine, and levothyro xine. She will follow with Dr. Mercado as outpatient. Norberto Ambrose MD cc: [phone] TT: 02/12/2017 23:43:01 tn
== END 2017-02-12 16:29 | disposition home or self-care (01) | DRG 392 ==
LOC: TRCU 20:48
PROVIDERS: ADMIT Internal Medicine; ATTEND Internal Medicine
PROC: F07Z9FZ Gait Training/Functional Ambulation Treatment using Assistive, Adaptive, Supportive or Protective Equipment (ICD-10-PCS; principal; 2017-02-05)
PROC: F08Z4FZ Home Management Treatment using Assistive, Adaptive, Supportive or Protective Equipment (ICD-10-PCS; 2017-02-05)
DX: K57.32 Diverticulitis of large intestine without perforation or abscess without bleeding (principal); Z79.2 Long term (current) use of antibiotics; E66.01 Morbid (severe) obesity due to excess calories; E11.9 Type 2 diabetes mellitus without complications; K27.9 Peptic ulcer, site unspecified, unspecified as acute or chronic, without hemorrhage or perforation; E03.9 Hypothyroidism, unspecified; K21.9 Gastro-esophageal reflux disease without esophagitis; E78.5 Hyperlipidemia, unspecified; N76.0 Acute vaginitis; R42 Dizziness and giddiness; I10 Essential (primary) hypertension; N81.4 Uterovaginal prolapse, unspecified; I83.90 Asymptomatic varicose veins of unspecified lower extremity; Z87.440 Personal history of urinary (tract) infections; Z68.33 Body mass index [BMI] 33.0-33.9, adult; Z87.442 Personal history of urinary calculi; Z88.0 Allergy status to penicillin; Z88.2 Allergy status to sulfonamides; Z90.49 Acquired absence of other specified parts of digestive tract

== ENCOUNTER 2017-02-23 20:43 | Observation (INO) | payer MEDICARE, OTHER ==
[2017-02-23 20:43] VITALS: BMI 32.0
[2017-02-23] MEDS ORDERED: Morphine 2 mg/ml ISec IVP STA ×2 (21:09→22:39)
[2017-02-23] MEDS ORDERED: Sodium Chloride 0.9% 1,000 ML IV STA (21:09)
--- NOTE | 2017-02-23 21:09 | ED PDOC ---
Arrival/HPI - General Chief Complaint: Back Pain Time Seen by Provider: 02/23/17 20:46 Historian: Patient - History of Present Illness Narrative History of Present Illness (Text): 02/23/17 21:08 Jazmyne Lauren is a 81 year old female, whose past medical history includes diverticulitis, uterine prolapse, hyperlipidemia, hypertension, and hypothyroidism, who presents to the Emergency department complaining of left flank pain and LLQ pain today. Patient reports associated nausea. Patient states she was recently discharged from the hospital on 02/12/2017 following treatment for sigmoid diverticulitis. Patient denies any fever, chills, chest pain, shortness of breath, vomiting, diarrhea, urinary symptoms, neck pain, headache, dizziness, or any other complaints. Time/Duration: Other (today) Symptom Onset: Gradual Symptom Course: Unchanged Activities at Onset: Rest, Light Context: Home Past Medical History - Provider Review Nursing Documentation Reviewed: Yes - Infectious Disease Hx of Infectious Diseases: None - Tetanus Immunization Tetanus Immunization: Unknown - Cardiac Hx Hypertension: Yes - Pulmonary Hx Respiratory Tract Infection: Yes - Neurological Hx Migraine: Yes - HEENT Hx HEENT Disorder: No - Renal Hx Renal Disorder: Yes Hx Kidney Stones: Yes - Endocrine/Metabolic Hx Diabetes Mellitus Type 2: Yes - Hematological/Oncological Other/Comment: "low immune system", fibroid tumors and fibrocystic breasts - Integumentary Hx Dermatological Disorder: No - Musculoskeletal/Rheumatological Hx Arthritis: Yes - Gastrointestinal Hx Gastrointestinal Disorders: Yes (DIVERTICULITIS,CHOLECYSTECTOMY,GERD, TONSILLECTOMY) - Genitourinary/Gynecological Hx Genitourinary Disorders: Yes - Psychiatric Hx Psychophysiologic Disorder: No Hx Substance Use: No - Surgical History Hx Appendectomy: Yes (1951) Hx Cholecystectomy: Yes (1994) Other/Comment: tonsillectomy 1937 - Anesthesia Hx Anesthesia: Yes - Suicidal Assessment Feels Threatened In Home Enviroment: No Family/Social History - Physician Review Nursing Documentation Reviewed: Yes Family/Social History: No Known Family HX Smoking Status: Never Smoked Hx Alcohol Use: No Hx Substance Use: No Hx Substance Use Treatment: No Allergies/Home Meds Allergies/Adverse Reactions: Allergies amitriptyline Allergy (Verified 02/23/17 20:48) RASH aspirin Allergy (Verified 02/23/17 20:48) RASH cephalexin Allergy (Verified 02/23/17 20:48) RASH ciprofloxacin Allergy (Verified 02/23/17 20:48) RASH gabapentin Allergy (Verified 02/23/17 20:48) RASH omeprazole Allergy (Verified 02/23/17 20:48) RASH oxycodone Allergy (Verified 02/23/17 20:48) NAUSEA Penicillins Allergy (Verified 02/23/17 20:48) URTICARIA PORK Allergy (Verified 02/23/17 20:48) unknown shellfish derived Allergy (Verified 02/23/17 20:48) RASH tolterodine tartrate [From Detrol] Allergy (Verified 02/23/17 20:48) RASH tomato Allergy (Verified 02/23/17 20:48) RASH bee venom Allergy (Uncoded 02/23/17 20:48) RASH dust Allergy (Uncoded 02/23/17 20:48) unknown dyes Allergy (Uncoded 02/23/17 20:48) unknown grass Allergy (Uncoded 02/23/17 20:48) unknown mold Allergy (Uncoded 02/23/17 20:48) unknown nuts Allergy (Uncoded 02/23/17 20:48) ANGIOEDEMA pollen Allergy (Uncoded 02/23/17 20:48) unknown ragweed Allergy (Uncoded 02/23/17 20:48) unknown tape Allergy (Uncoded 02/23/17 20:48) RASH trees Allergy (Uncoded 02/23/17 20:48) unknown wool Allergy (Uncoded 02/23/17 20:48) RASH Home Medications: Home Meds Medication Instructions Recorded Confirmed Hydrochlorothiazide [HCTZ] 25 mg PO DAILY 10/02/14 02/23/17 Cholecalciferol [Vitamin D 1000 IU] 2,000 unit PO DAILY 01/31/17 02/23/17 Famotidine [Heartburn Prevention] 1 tab PO DAILY PRN 01/31/17 02/23/17 Review of Systems - Physician Review All systems were reviewed & negative as marked: Yes - Review of Systems Constitutional: Normal. absent: Fevers Eyes: Normal ENT: Normal Respiratory: Normal. absent: SOB, Cough Cardiovascular: Normal. absent: Chest Pain Gastrointestinal: Abdominal Pain, Nausea. absent: Diarrhea, Vomiting Genitourinary Female: Normal. absent: Dysuria, Frequency, Hematuria, Urine Output Changes Musculoskeletal: Back Pain. absent: Neck Pain Skin: Normal. absent: Rash Neurological: Normal. absent: Headache, Dizziness Endocrine: Normal Hemo/Lymphatic: Normal Psychiatric: Normal Physical Exam Vital Signs Reviewed: Yes Vital Signs Temp Pulse Resp BP Pulse Ox 02/24/17 02:00 65 18 137/68 95 02/24/17 01:03 62 14 140/72 96 02/23/17 23:15 63 18 146/72 95 02/23/17 20:49 97.7 F 73 18 138/77 97 Temperature: Afebrile Blood Pressure: Normal Pulse: Regular Respiratory Rate: Normal Appearance: Positive for: Well-Appearing, Non-Toxic, Comfortable Pain Distress: None Mental Status: Positive for: Alert and Oriented X 3 - Systems Exam Head: Present: Atraumatic, Normocephalic Pupils: Present: PERRL Extroacular Muscles: Present: EOMI Conjunctiva: Present: Normal Mouth: Present: Moist Mucous Membranes Neck: Present: Normal Range of Motion Respiratory/Chest: Present: Clear to Auscultation, Good Air Exchange. No: Respiratory Distress, Accessory Muscle Use Cardiovascular: Present: Regular Rate and Rhythm, Normal S1, S2. No: Murmurs Abdomen: Present: Tenderness (LLQ tenderness), Normal Bowel Sounds. No: Distention, Peritoneal Signs Back: Present: Normal Inspection Upper Extremity: Present: Normal Inspection. No: Cyanosis, Edema Lower Extremity: Present: Normal Inspection. No: Edema Neurological: Present: GCS=15, CN II-XII Intact, Speech Normal Skin: Present: Warm, Dry, Normal Color. No: Rashes Psychiatric: Present: Alert, Oriented x 3, Normal Insight, Normal Concentration Medical Decision Making ED Course and Treatment: 02/23/17 21:08 Impression: 81 year old female complaining of left flank pain and nausea. Differential Diagnosis include but are not limited to: pyelonephritis vs. kidney stone vs. renal colic vs. UTI vs. musculoskeletal pain Plan: -- CT Abdomen and Pelvis with PO contrast -- EKG -- Labs, amylase, lipase, cardiac enzymes, blood cultures -- Urinalysis, urine cultures -- IV fluids -- Zofran -- Morphine -- Reassess and disposition Prior Visits: Notes and results from previous visits were reviewed. Progress Notes: 02/24/17 23:40 reviewed EKG, NSR at [address]pm[address] LAFB. Non-specific ST/T wave changes. 02/24/17 00:20 Reviewed radiology, CT Abdomen and Pelvis shows: No acute findings. 02/24/17 01:[address] Ambrose, who is aware and agrees with plan. Accepts pt in to her service. Pt will go to [facility] observation for UTI and abdominal pain. - Lab Interpretations Lab Results: 02/23/17 21:20 02/23/17 21:20 Lab Results 02/23/17 21:20: Sodium 129 L, Potassium 3.9, Chloride 93 L, Carbon Dioxide 25, Anion Gap 15, BUN 16, Creatinine 0.8, Est GFR ( Amer) > 60, Est GFR (Non- Af Amer) > 60, Random Glucose 100, Calcium 9.4, Total Bilirubin 0.7, AST 24, ALT 36, Alkaline Phosphatase 79, Lactate Dehydrogenase 385, Total Creatine Kinase 64, Troponin I 0.01, Total Protein 8.1, Albumin 4.2, Globulin 3.8, Albumin/Globulin Ratio 1.1, Amylase 68, Lipase 66 02/23/17 21:20: Urine Color yellow, Urine Appearance Clear, Urine pH 6.0, Ur Specific [place] 1.010, Urine Protein Negative, Urine Glucose (UA) Negative, Urine Ketones Negative, Urine Blood Moderate H, Urine Nitrate Negative, Urine Bilirubin Negative, Urine Urobilinogen 0.2, Ur Leukocyte Esterase Moderate H, Urine RBC 20 - 25, Urine WBC 10 - 15, Ur Epithelial Cells Many 02/23/17 21:20: PT 11.0, INR 1.02, APTT 28.7 02/23/17 21:20: WBC 7.0 D, RBC 4.28, Hgb 13.0, Hct 38.4, MCV 89.7, MCH 30.4, MCHC 33.9, RDW 14.4, Plt Count 228, MPV 10.0, Gran % 65.0, Lymph % (Auto) 22.9, [place] % (Auto) 10.1 H, Eos % (Auto) 1.4 L, Baso % (Auto) 0.6, Gran # 4.57, Lymph # 1.6, [place] # 0.7 H, Eos # 0.1, Baso # 0.04 I have reviewed the lab results: Yes - RAD Interpretation Narrative RAD Interpretations (Text): CT Abdomen and Pelvis shows: Lower thorax: No acute findings. ABDOMEN: Liver: No acute findings. No mass. Gallbladder and bile ducts: Cholecystectomy. No ductal dilation. Pancreas: No acute findings. No mass. No ductal dilation. Spleen: No acute findings. No splenomegaly. Adrenals: No acute findings. No mass. Kidneys and ureters: No acute findings. No solid mass. No hydronephrosis. Stomach and bowel: There is diverticulosis without diverticulitis. No obstruction. Appendix: No findings to suggest acute appendicitis. PELVIS: Bladder: No acute findings. No mass. Reproductive: No acute findings. ABDOMEN and PELVIS: Intraperitoneal space: No acute findings. No free air. No significant fluid collection. Bones/joints: No acute fracture. No dislocation. Soft tissues: No acute findings. Vasculature: No acute findings. No abdominal aortic aneurysm. Lymph nodes: No acute findings. No enlarged lymph nodes. IMPRESSION: No acute findings. Radiology Orders: 02/23/17 21:12 ABD & PELVIS PO CONTRAST ONLY [CT] Stat Electrical Lineworker: Radiologist - EKG Interpretation Interpreted by ED Physician: Yes Type: 12 lead EKG - Medication Orders Current Medication Orders: Acetaminophen (Tylenol 325mg Tab) 650 mg PO Q4H PRN PRN Reason: Fever >100.5 F Aztreonam (Azactam 1 Gm) 100 mls @ 100 mls/hr IVPB Q8 ROBERT PRN Reason: Protocol Stop: 03/03/17 06:31 Last Admin: 02/24/17 14:31 Dose: 100 mls/hr Levothyroxine Sodium (Synthroid) 50 mcg PO 0600 ROBERT Morphine Sulfate (Morphine) 2 mg IVP Q4H PRN PRN Reason: Pain, moderate (4-7) Naproxen (Anaprox) 275 mg PO BID [facility] Last Admin: 02/24/17 18:00 Dose: 275 mg Discontinued Medications Barium Sulfate (Readi-Cat 2) Confirm Administered Dose 450 ml PO .STK-MED ONE Stop: 02/23/17 21:48 Sodium Chloride (Sodium Chloride 0.9%) 1,000 mls @ 100 mls/hr IV .Q10H STA Stop: 02/24/17 07:08 Last Admin: 02/23/17 21:34 Dose: 100 mls/hr Aztreonam (Azactam 1 Gm) 100 mls @ 100 mls/hr IVPB STAT STA PRN Reason: Protocol Stop: 02/24/17 02:10 Last Admin: 02/24/17 01:33 Dose: 100 mls/hr Sodium Chloride (Sodium Chloride 0.9%) 1,000 mls @ 100 mls/hr IV .Q10H STA Stop: 02/24/17 11:47 Last Admin: 02/24/17 01:57 Dose: Insulin Human Regular (Humulin R Low) 0 units SC ACHS ROBERT PRN Reason: Protocol Last Admin: 02/24/17 12:00 Dose: Not Given Non-Admin Reason: Blood Sugar Parameter Iohexol (Omnipaque 240 (50 Ml)) Confirm Administered Dose 50 ml .ROUTE .STK-MED ONE Stop: 02/23/17 21:33 Morphine Sulfate (Morphine) 2 mg IVP STAT STA Stop: 02/23/17 21:10 Last Admin: 02/23/17 21:33 Dose: 2 mg Re-Assess: ALISHA Pain Assessment Document 02/23/17 22:33 SB (Rec: 02/23/17 22:53 SB [facility] [id number] Pain Reassessment Is this a pain reassessment? Yes Sleep Is patient sleeping during reassessment? No Presence of Pain Presence of Pain No Morphine Sulfate (Morphine) 2 mg IVP STAT STA Stop: 02/23/17 22:40 Last Admin: 02/23/17 23:06 Dose: 2 mg Ondansetron HCl (Zofran Inj) 4 mg IVP STAT STA Stop: 02/23/17 21:10 Last Admin: 02/23/17 21:34 Dose: 4 mg - Dylanibe Statement The provider has reviewed the documentation as recorded by the Dylanibjermaine Fields All medical record entries made by the Yaya were at my direction and personally dictated by me. I have reviewed the chart and agree that the record accurately reflects my personal performance of the history, physical exam, medical decision making, and the department course for this patient. I have also personally directed, reviewed, and agree with the discharge instructions and disposition. Disposition/Present on Arrival - Present on Arrival Any Indicators Present on Arrival: No History of DVT/PE: No History of Uncontrolled Diabetes: No Urinary Catheter: No History of Decub. Ulcer: No History Surgical Site Infection Following: None - Disposition Have Diagnosis and Disposition been Completed?: Yes Diagnosis: Pyelonephritis Disposition: HOSPITALIZED Disposition Time: 01:00 Condition: FAIR
[2017-02-23 21:31] LABS: ADD MANUAL DIFF? NO
[2017-02-23] MEDS ORDERED: Iohexol 240 (50 ml) ONE (21:32)
[2017-02-23 21:34] LABS: URINE BILIRUBIN NEGATIVE (NEGATIVE); URINE BLOOD MODERATE (NEGATIVE); URINE GLUCOSE (UA) NEGATIVE (NEGATIVE); URINE KETONE NEGATIVE (NEGATIVE); URINE LEUKOCYTE ESTERASE MODERATE Leu/uL (NEGATIVE); URINE PROTEIN NEGATIVE mg/dL (<30 mg/dL); URINE UROBILINOGEN 0.2 E.U./dL (<1 E.U./dL)
[2017-02-23 21:35] LABS: BASO # 0.04 K/mm3 (0.0-2.0); BASO % 0.6 % (0.0-3.0); EOS # 0.1 (0.0-0.7); EOS % 1.4 % (1.5-5.0); GRAN # 4.57 (1.4-6.5); HEMATOCRIT 38.4 % (36.0-48.0); LYMPH # 1.6 (1.2-3.4); LYMPH % 22.9 % (22.0-35.0); MEAN CELL VOLUME 89.7 fL (80.0-105.0); MEAN CORPUSCULAR HEMOGLOBIN 30.4 pg (25.0-35.0); MEAN CORPUSCULAR HGB CONC 33.9 g/dl (31.0-37.0); MONO # 0.7 (0.1-0.6); MONO % 10.1 % (1.0-6.0); PLATELET COUNT 228 10^3/uL (120.0-450.0); RED CELL DISTRIBUTION WIDTH 14.4 % (11.5-14.5)
[2017-02-23 21:36] LABS: URINE APPEARANCE CLEAR (CLEAR)
[2017-02-23 21:46] LABS: INR 1.02 (0.93-1.08); PARTIAL THROMBOPLASTIN TIME 28.7 Seconds (23.7-30.8)
[2017-02-23] MEDS ORDERED: Barium Sulfate Susp 2.1% w/v, 2.0% w/w 450 mL Bottle PO ONE (21:47)
[2017-02-23 22:18] LABS: ALB/GLOB RATIO 1.1 (1.1-1.8); ALKALINE PHOSPHATASE 79 U/L (38-133); ALT/SGPT 36 U/L (7-56); AMYLASE 68 U/L (35-125); AST/SGOT 24 U/L (15-39); BILIRUBIN,TOTAL 0.7 mg/dL (0.2-1.3); BLOOD UREA NITROGEN 16 mg/dL (7-21); CALCIUM 9.4 mg/dL (8.4-10.5); CARBON DIOXIDE 25 mmol/L (21-33); CHLORIDE 93 mmol/L (98-107); GFR AFRICAN-AMERICAN > 60; GLUCOSE,RANDOM 100 mg/dL (70-110); LIPASE 66 U/L (23-300); POTASSIUM 3.9 mmol/L (3.6-5.0); SODIUM 129 mmol/L (132-148); TOTAL PROTEIN 8.1 g/dL (5.8-8.3)
[2017-02-23 22:32] LABS: TROPONIN I 0.01 ng/mL
[2017-02-23 22:59] LABS: URINE EPITHELIAL CELLS MANY /hpf (0-5); URINE RBC 20 - 25 /hpf (0-2)
[2017-02-24] MEDS ORDERED: Aztreonam 1 Gm in NS 100mL 100 ML IVPB STA (01:11)
[2017-02-24] MEDS ORDERED: Sodium Chloride 0.9% 1,000 ML IV STA (01:48)
[2017-02-24] MEDS ORDERED: Morphine 2 mg/ml ISec IVP PRN (01:51)
[2017-02-24] MEDS: Aztreonam 1 Gm in NS 100mL 100 ML IVPB SCH ×3 (07:17→22:33)
[2017-02-24] MEDS: Insulin Reg-LOW-Coverage SC SCH ×2 (08:00→12:00)
--- NOTE | 2017-02-24 11:11 | CT ---
PROCEDURE: CT Abdomen and Pelvis without IV contrast. HISTORY: abd pain llq pain COMPARISON: CT abdomen and pelvis without oral or IV contrast performed 01/31/17 TECHNIQUE: Contiguous axial images of the abdomen and pelvis. Oral contrast was administered. No IV contrast given. Coronal and Sagittal reformats generated and reviewed. Radiation dose: Total exam DLP = 1147.01 mGy-cm. This CT exam was performed using one or more of the following dose reduction techniques: Automated exposure control, adjustment of the mA and/or kV according to patient size, and/or use of iterative reconstruction technique. FINDINGS: There is limited evaluation of the solid organs without the administration of IV contrast. LOWER THORAX: Mild bibasilar atelectasis. No visible pleural effusion or pneumothorax. Small defect at the right hemidiaphragm compatible with fat containing Bochdalek's hernia. LIVER: Unremarkable unenhanced appearance. GALLBLADDER AND BILE DUCTS: Cholecystectomy. PANCREAS: Fatty atrophy. SPLEEN: Unremarkable unenhanced appearance. ADRENALS: Unremarkable unenhanced appearance. KIDNEYS AND URETERS: Atrophic kidneys. No hydronephrosis or obstructing renal calculus. BLADDER: The urinary bladder appears unremarkable. REPRODUCTIVE: Uterus is present. APPENDIX: The appendix is not identified ; consistent with history of appendectomy. No secondary signs of acute appendicitis. BOWEL: The stomach is incompletely distended ; ingested debris within the stomach limits evaluation. The bowel loops appear within normal limits of caliber without evidence of intestinal obstruction. Diverticulosis without CT evidence of acute diverticulitis. PERITONEUM: No significant free fluid. No definite free air. LYMPH NODES: No bulky lymphadenopathy identified. VASCULATURE: Atherosclerotic calcifications. No aortic aneurysm. BONES: Degenerative changes. Osseous demineralization. OTHER FINDINGS: Pessary. IMPRESSION: No acute pathology identified. Incidental findings as above. Preliminary impression was provided by [employer].
--- NOTE | 2017-02-24 12:02 | CARD ---
APPROVED REPORT EKG Measurement Heart [id number] MT [id number] CDt298 <Conclusion> Normal sinus rhythm LAD, possible LAHB PRWP V 1 - 6 NSSTW changes
--- NOTE | 2017-02-24 15:37 | HP ---
The patient is an 81-year-old, known to me from multiple previous admissions. The patient states aft er she had dinner last night, she started to have left-sided back pain that was very squeezing, inter mittent in nature. She could not lay down. She could not feel comfortable, so she was brought to Em ergency Room for further evaluation. She was recently admitted for sigmoid diverticulitis. She was treated with 10 days of antibiotics and she was comfortable prior to discharge. She states she felt better for a few days and then this pain started to come back. She never got a chance to see Dr. Lexi tobias, who had given her epidural in the past. PAST MEDICAL HISTORY: Significant for: 1. Hypertension. 2. Hypothyroidism. 3. Degenerative disk disease. 4. History of pyelonephritis. She was treated for that. 5. Morbid obesity. ALLERGIES: THE PATIENT HAS MULTIPLE ALLERGIES INCLUDING RAGWEED, POLLEN, MOLDS, GAS, DYES, DUST, BEE VENOM, TOMATO, DETROL, PORK, PENICILLIN, LACTOSE, GABAPENTIN, CIPRO, KEFLEX, ASPIRIN AND AMITRIPTYLI NE. SOCIAL HISTORY: She lives with her son. Denies smoking or drinking. MEDICATIONS AT HOME: She is on levothyroxine. She is on hydrochlorothiazide, famotidine twice a day at home. PHYSICAL EXAMINATION: GENERAL: Sitting in chair, complained of having left flank pain, not in any distress, eating and daija erating VITAL SIGNS: She is afebrile, pulse 59, respirations 18, blood pressure 144/62. LUNGS: Bilateral good airflow, no rhonchi or crackle. HEART: S1, S2 audible. ABDOMEN: Soft, nontender, no rebound, no guarding. BACK: She has paraspinal discomfort in lower thoracic and upper lumbar area. NEUROLOGIC: No focal deficit in both lower extremities. EXTREMITIES: Bilateral legs, no edema. LABORATORY EXAMINATION: WBCs 7.0, hemoglobin 13, hematocrit 38, platelet of 228. PT 11.0, INR 1.02. Chemistry: Sodium 129, potassium 3.9, chloride 93, CO2 25, BUN 16, creatinine 0.8, blood sugar of 100. Urinalysis shows moderate blood and moderate leukocyte, 20-25 RBCs and 10-[address] scan of the abdomen and pelvis done that does not show any diverticulitis. She does have diverticulosis. Otherwise, no acute findings. ASSESSMENT: 1. Left flank pain. Rule out renal colic. 2. Degenerative disk disease. 3. Hypothyroidism. PLAN: The patient has been started on Azactam. I will give morphine as needed. Will start her on N aprosyn. Dr. Ramirez has been consulted and so has Dr. Garcia. We will evaluate this patient in a.m. Norberto Ambrose MD cc: [phone] TT: 02/24/2017 15:36:31 en
[2017-02-24] MEDS: Naproxen 275 mg Tab PO SCH (18:00)
--- NOTE | 2017-02-24 19:33 | CP.PCM.CON ---
History of Present Illness - History of Present Illness History of Present Illness: 81 year old female with PMH of uterine prolapse, history of UTI's, HTN, hypothyroidism, obesity with BMI 31 was recently admitted in [facility] for the treatment o acute diverticulitis. The patient did well with IV antibiotics. She was doing well upon discharge until yesterday when she started having left flank pain and left lower quadrant pain. She denies nausea or vomiting, no diarrhea, has some urinary frequency but no dysuria, no hematuria, no abdominal pain, no chest pain, no SOB, no cough or colds, no sore throat, no fever or chills. CT abdomen and pelvis did not show an acute pathology. Infectious Diseases consult is requested to further evaluate and manage. Review of Systems - Review of Systems All systems: reviewed and no additional remarkable complaints except (as per HPI ) Past Patient History - Infectious Disease Hx of Infectious Diseases: None - Tetanus Immunizations Tetanus Immunization: Unknown - Past Medical History & Family History Past Medical History?: Yes - Past Social History Smoking Status: Never Smoked - CARDIAC Hx Hypertension: Yes - PULMONARY Hx Respiratory Tract Infection: Yes - NEUROLOGICAL Hx Migraine: Yes - HEENT Hx HEENT Problems: No - RENAL Hx Chronic Kidney Disease: Yes Hx Kidney Stones: Yes - ENDOCRINE/METABOLIC Hx Diabetes Mellitus Type 2: Yes - HEMATOLOGICAL/ONCOLOGICAL Other/Comment: "low immune system", fibroid tumors and fibrocystic breasts - INTEGUMENTARY Hx Dermatological Problems: No - MUSCULOSKELETAL/RHEUMATOLOGICAL Hx Arthritis: Yes Hx Falls: No - GASTROINTESTINAL Hx Gastrointestinal Disorders: Yes (DIVERTICULITIS,CHOLECYSTECTOMY,GERD, TONSILLECTOMY) - GENITOURINARY/GYNECOLOGICAL Hx Genitourinary Disorders: Yes - PSYCHIATRIC Hx Psychophysiologic Disorder: No - SURGICAL HISTORY Hx Appendectomy: Yes (1951) Hx Cholecystectomy: Yes (1994) Other/Comment: tonsillectomy 1937 - ANESTHESIA Hx Anesthesia: Yes Meds Allergies/Adverse Reactions: Allergies Allergy/AdvReac Type Severity Reaction Status Date / Time amitriptyline Allergy RASH Verified 02/23/17 20:48 aspirin Allergy RASH Verified 02/23/17 20:48 cephalexin Allergy RASH Verified 02/23/17 20:48 ciprofloxacin Allergy RASH Verified 02/23/17 20:48 gabapentin Allergy RASH Verified 02/23/17 20:48 omeprazole Allergy RASH Verified 02/23/17 20:48 oxycodone Allergy NAUSEA Verified 02/23/17 20:48 Penicillins Allergy URTICARIA Verified 02/23/17 20:48 PORK Allergy unknown Verified 02/23/17 20:48 shellfish derived Allergy RASH Verified 02/23/17 20:48 tolterodine tartrate Allergy RASH Verified 02/23/17 20:48 [From [facility]] tomato Allergy RASH Verified 02/23/17 20:48 bee venom Allergy RASH Uncoded 02/23/17 20:48 dust Allergy unknown Uncoded 02/23/17 20:48 dyes Allergy unknown Uncoded 02/23/17 20:48 grass Allergy unknown Uncoded 02/23/17 20:48 mold Allergy unknown Uncoded 02/23/17 20:48 nuts Allergy ANGIOEDEMA Uncoded 02/23/17 20:48 pollen Allergy unknown Uncoded 02/23/17 20:48 ragweed Allergy unknown Uncoded 02/23/17 20:48 tape Allergy RASH Uncoded 02/23/17 20:48 trees Allergy unknown Uncoded 02/23/17 20:48 wool Allergy RASH Uncoded 02/23/17 20:48 - Medications Medications: Current Medications Acetaminophen (Tylenol 325mg Tab) 650 mg PO Q4H PRN PRN Reason: Fever >100.5 F Sodium Chloride (Sodium Chloride 0.9%) 1,000 mls @ 100 mls/hr IV .Q10H STA Stop: 02/24/17 07:08 Last Admin: 02/23/17 21:34 Dose: 100 mls/hr Sodium Chloride (Sodium Chloride 0.9%) 1,000 mls @ 100 mls/hr IV .Q10H STA Stop: 02/24/17 11:47 Last Admin: 02/24/17 01:57 Dose: Not Given Insulin Human Regular (Humulin R Low) 0 units SC ACHS ROBERT PRN Reason: Protocol Morphine Sulfate (Morphine) 2 mg IVP Q4H PRN PRN Reason: Pain, moderate (4-7) Physical Exam - Constitutional Appears: Non-toxic, No Acute Distress - Head Exam Head Exam: NORMAL INSPECTION - ENT Exam ENT Exam: Mucous Membranes Moist - Neck Exam Neck exam: Negative for: Lymphadenopathy, Meningismus - Respiratory Exam Respiratory Exam: Decreased Breath Sounds - Cardiovascular Exam Cardiovascular Exam: +S1, +S2 - GI/Abdominal Exam GI & Abdominal Exam: Soft. absent: Tenderness Results - Vital Signs Recent Vital Signs: Last Vital Signs Temp 97.5 F L 02/24/17 03:05 Pulse 59 L 02/24/17 03:05 Resp 18 02/24/17 03:05 BP 144/62 02/24/17 03:05 Pulse Ox 95 02/24/17 02:00 - Labs Result Diagrams: 02/23/17 21:20 02/23/17 21:20 Assessment & Plan - Assessment and Plan (Free Text) Plan: Assessment consider urinary tract infection, R/O left sided renal colic history of Acute sigmoid diverticulitis history of urinary tract infection with E. coli uterine prolapse history of UTI's HTN hypothyroidism obesity with BMI 33 Plan started Azactam pending blood and urine cx; follow up Urology evaluation Will follow clinically
[2017-02-24 19:40] VITALS: RESP 20
[2017-02-25] MEDS: Aztreonam 1 Gm in NS 100mL 100 ML IVPB SCH ×2 (05:42→14:05)
[2017-02-25] MEDS ORDERED: Levothyroxine 50 MCG TAB PO SCH (06:00)
[2017-02-25 07:46] LABS: ALKALINE PHOSPHATASE 65 U/L (38-133); ALT/SGPT 31 U/L (7-56); AST/SGOT 17 U/L (15-39); BILIRUBIN,TOTAL 0.5 mg/dL (0.2-1.3); BLOOD UREA NITROGEN 10 mg/dL (7-21); CALCIUM 8.8 mg/dL (8.4-10.5); CARBON DIOXIDE 24 mmol/L (21-33); CHLORIDE 110 mmol/L (98-107); GFR AFRICAN-AMERICAN > 60; GLUCOSE,RANDOM 91 mg/dL (70-110); POTASSIUM 4.1 mmol/L (3.6-5.0); SODIUM 140 mmol/L (132-148); TOTAL PROTEIN 6.7 g/dL (5.8-8.3)
[2017-02-25 08:19] VITALS: BP 116/61; PULSE 68; TEMP 98; O2SAT 100
[2017-02-25] MEDS: Naproxen 275 mg Tab PO SCH (10:09)
[2017-02-25] MEDS ORDERED: POLYETHYLENE GLYCOL 3350 17 GM/Dose PACKET PO SCH (11:45)
--- NOTE | 2017-02-25 12:51 | CON ---
DATE: 02/25/2017 CHIEF COMPLAINT: Left-sided pain. HISTORY OF PRESENT ILLNESS: This is an 81-year-old woman who was recently in the hospital and discha rged for diverticulitis. She came to the ER last night complaining of some left-sided back pain, int ermittent. No nausea or vomiting. A CAT scan was done. The CAT scan did not show any evidence of k idney stones, hydronephrosis, any evidence of any inflammatory changes. Her urine culture came back as no growth. Her urinalysis has pyuria, but she has a pessary in place and has some vaginal dischar ge because of this. She currently is comfortable and feels better. The pain was worse when she would try to lie down or move. She was to have an epidural in the past for arthritic changes. PAST MEDICAL HISTORY: Significant for hypertension, arthritic changes and obesity. ALLERGIES: NEURONTIN, CIPRO, KEFLEX, ASPIRIN AND ELAVIL. SOCIAL HISTORY: Noncontributory. FAMILY HISTORY: Noncontributory. MEDICATIONS: At home she takes famotidine, hydrochlorothiazide and levothyroxine. PHYSICAL EXAMINATION: VITAL SIGNS: Shows her to be afebrile, pulse 68, blood pressure 116/61, respirations 20. HEENT: Normocephalic, sclerae are clear, conjunctivae not injected. ABDOMEN: She has no CVA pain, no rebound, no guarding. No suprapubic tenderness. BACK: The pain she shows me when it occurred was behind her left shoulder and went down to her left hip. It was worse if she tried to move or lie down. SKIN: Shows no purpura or edema. NEUROLOGIC: Oriented x 3. HEART: Normal sinus rhythm. LUNGS: Clear to percussion and auscultation. LABORATORY DATA: Shows a urinalysis as mentioned with 20-25 RBCs and 10-15 WBCs; however, she has a pessary in place. I think this is probably vaginal. Her white count is normal at 7000. Her creatin ine is 0.9. As mentioned, the urine culture was no growth, as were the blood cultures. I reviewed t he CAT scan. I do not feel this is urologic in origin, most likely musculoskeletal. ID has seen her, but I do not think this is pyelonephritis or urosepsis. Jules Ramirez MD cc: [phone] TT: 02/25/2017 12:50:21 Confirmation # [id number] Dictation # [id number] rn
--- NOTE | 2017-02-25 14:13 | CP.PCM.PN ---
Subjective - Date & Time of Evaluation Date of Evaluation: 02/25/17 Time of Evaluation: 09:55 - Subjective Subjective: Still having pain in the left flank, no diarrhea, no hematuria or dysuria, no fevers overnight. Objective - Vital Signs/Intake and Output Vital Signs (last 24 hours): Temp Pulse Resp BP Pulse Ox 98 F 68 20 116/61 100 02/25/17 08:18 02/25/17 08:18 02/25/17 08:18 02/25/17 08:18 02/25/17 08:18 Intake and Output: 02/25/17 02/25/17 06:59 18:59 Intake Total 680 440 Balance 680 440 - Medications Medications: Current Medications Acetaminophen (Tylenol 325mg Tab) 650 mg PO Q4H PRN PRN Reason: Fever >100.5 F Docusate Sodium (Colace) 100 mg PO BID [facility] Last Admin: 02/25/17 12:46 Dose: 100 mg Aztreonam (Azactam 1 Gm) 100 mls @ 100 mls/hr IVPB Q8 [facility] PRN Reason: Protocol Stop: 03/03/17 06:31 Last Admin: 02/25/17 14:05 Dose: 100 mls/hr Levothyroxine Sodium (Synthroid) 50 mcg PO 0600 [facility] Last Admin: 02/25/17 05:42 Dose: 50 mcg Morphine Sulfate (Morphine) 2 mg IVP Q4H PRN PRN Reason: Pain, moderate (4-7) Naproxen (Anaprox) 275 mg PO BID [facility] Last Admin: 02/25/17 10:09 Dose: 275 mg Polyethylene Glycol (Miralax) 17 gm PO DAILY [facility] Last Admin: 02/25/17 12:46 Dose: 17 gm - Labs Labs: 02/25/17 07:00 PT 11.0 Seconds (9.9-11.8) 02/23/17 21:20 INR 1.02 (0.93-1.08) 02/23/17 21:20 APTT 28.7 Seconds (23.7-30.8) 02/23/17 21:20 - Constitutional Appears: Non-toxic, No Acute Distress - Head Exam Head Exam: NORMAL INSPECTION - ENT Exam ENT Exam: Mucous Membranes Moist - Neck Exam Neck Exam: absent: Lymphadenopathy, Meningismus - Respiratory Exam Respiratory Exam: Decreased Breath Sounds - Cardiovascular Exam Cardiovascular Exam: +S1, +S2 - GI/Abdominal Exam GI & Abdominal Exam: Soft. absent: Tenderness Assessment and Plan - Assessment and Plan (Free Text) Plan: Assessment R/O urinary tract infection, R/O left sided renal colic history of Acute sigmoid diverticulitis history of urinary tract infection with E. coli uterine prolapse history of UTI's HTN hypothyroidism obesity with BMI 33 Plan on Azactam day 2; blood and urine cx are negative - unlikely UTI; reviewed Urology evaluation; will d/c Azactam and do renal ultrasound Will follow clinically
--- NOTE | 2017-02-25 14:44 | DS ---
The patient is an 81-year-old, seen and examined, doing well. She states her pain is better in the b ack, but still feels soreness . PHYSICAL EXAMINATION: VITAL SIGNS: She is afebrile, pulse 68, respirations 20, blood pressure 116/61. LUNGS: Bilateral good airflow, no rhonchi or crackle. HEART: S1, S2 audible. ABDOMEN: Soft, nontender, no rebound, no guarding. She has paraspinal discomfort in the lumbar thor acic area. NEUROLOGIC: She is awake and alert, communicative. LABORATORY EXAM: Sodium 140, potassium 4.1, chloride 110, CO2 24, BUN 10, creatinine 0.9, blood suga r of 91. Her blood culture and urine cultures are negative. CT scan of the abdomen and pelvis is un remarkable. ASSESSMENT: 1. Probably degenerative disk disease with paraspinal discomfort. Blood culture and urine cultures are negative. Discussed with Dr. Jules Ramirez. 2. History of prolapse and patient has pessary that gets checked and gets replaced every 3 mon ths. 4. Hypothyroidism. PLAN: The patient is clinically stable. She can be discharged home. She is going to be discharged home and I left a prescription of Naprosyn and Ultracet as needed. She will follow up with Dr. Blanca dunbar within a week and she will follow with Dr. Mercado as outpatient. Norberto Ambrose MD cc: [phone] TT: 02/25/2017 14:43:15 rn
== END 2017-02-25 17:55 | disposition home or self-care (01) ==
LOC: ED 20:43 → ERH 02-24 01:11 → 5RNO 02-24 02:15
PROVIDERS: ADMIT Internal Medicine; ATTEND Internal Medicine
DX: R10.32 Left lower quadrant pain (principal); M54.9 Dorsalgia, unspecified; R11.0 Nausea; N81.4 Uterovaginal prolapse, unspecified; N89.8 Other specified noninflammatory disorders of vagina; I10 Essential (primary) hypertension; K57.32 Diverticulitis of large intestine without perforation or abscess without bleeding; E78.5 Hyperlipidemia, unspecified; E03.9 Hypothyroidism, unspecified; E66.01 Morbid (severe) obesity due to excess calories; Z68.31 Body mass index [BMI] 31.0-31.9, adult; Z87.440 Personal history of urinary (tract) infections
CPT/HCPCS: 36415; 74176; 80053; 81001; 82150; 82550; 83615; 83690; 84484; 85025; 85610; 85730; 87040; 87086; 93005; 96365; 96366; 96375; 96376; 99284; G0378; J2270; J2405; J7040; Q9966

== ENCOUNTER 2017-09-29 18:41 | Inpatient (IN) | payer MEDICARE, OTHER ==
[2017-09-29 18:55] VITALS: BMI 27.1
[2017-09-29] MEDS ORDERED: Sodium Chloride 0.9% 500 ML IV STA (19:46)
--- NOTE | 2017-09-29 19:51 | ED PDOC ---
Arrival/HPI - General Chief Complaint: Back Pain Time Seen by Provider: 09/29/17 19:02 Historian: Patient - History of Present Illness Narrative History of Present Illness (Text): 09/29/17 19:48 82 year old female, whose history includes chronic back pain, presents to the Emergency department complaining of back pain. Patient receives epidural injections for back pain from Dr. Garcia. Patient also has a history of kidney infection and states she wants to be evaluated for kidney infection. Patient denies any fever, chills, chest pain, shortness of breath, nausea, vomiting, diarrhea, dysuria, hematuria, frequency, headache, dizziness, or any other complaints. PMD: Dr. Mercado Time/Duration: 24 hours Symptom Onset: Gradual Activities at Onset: Rest Context: Home Past Medical History - Provider Review Nursing Documentation Reviewed: Yes - Infectious Disease Hx of Infectious Diseases: None - Tetanus Immunization Tetanus Immunization: Unknown - Cardiac Hx Hypertension: Yes - Pulmonary Hx Respiratory Tract Infection: Yes - Neurological Hx Migraine: Yes - HEENT Hx HEENT Disorder: No - Renal Hx Renal Disorder: Yes Hx Kidney Stones: Yes - Endocrine/Metabolic Hx Diabetes Mellitus Type 2: Yes - Hematological/Oncological Other/Comment: "low immune system", fibroid tumors and fibrocystic breasts - Integumentary Hx Dermatological Disorder: No - Musculoskeletal/Rheumatological Hx Arthritis: Yes Hx Falls: No - Gastrointestinal Hx Gastrointestinal Disorders: Yes (DIVERTICULITIS,CHOLECYSTECTOMY,GERD, TONSILLECTOMY) - Genitourinary/Gynecological Hx Genitourinary Disorders: Yes - Psychiatric Hx Psychophysiologic Disorder: No Hx Substance Use: No - Surgical History Hx Appendectomy: Yes (1951) Hx Cholecystectomy: Yes (1994) Other/Comment: tonsillectomy 1937 - Anesthesia Hx Anesthesia: Yes - Suicidal Assessment Feels Threatened In Home Enviroment: No Family/Social History - Physician Review Nursing Documentation Reviewed: Yes Family/Social History: Unknown Family HX Smoking Status: Never Smoked Hx Alcohol Use: No Hx Substance Use: No Hx Substance Use Treatment: No Allergies/Home Meds Allergies/Adverse Reactions: Allergies amitriptyline Allergy (Verified 02/23/17 20:48) RASH aspirin Allergy (Verified 02/23/17 20:48) RASH cephalexin Allergy (Verified 02/23/17 20:48) RASH ciprofloxacin Allergy (Verified 02/23/17 20:48) RASH gabapentin Allergy (Verified 02/23/17 20:48) RASH omeprazole Allergy (Verified 02/23/17 20:48) RASH oxycodone Allergy (Verified 02/23/17 20:48) NAUSEA Penicillins Allergy (Verified 02/23/17 20:48) URTICARIA PORK Allergy (Verified 02/23/17 20:48) unknown shellfish derived Allergy (Verified 02/23/17 20:48) RASH tolterodine tartrate [From Detrol] Allergy (Verified 02/23/17 20:48) RASH tomato Allergy (Verified 02/23/17 20:48) RASH bee venom Allergy (Uncoded 02/23/17 20:48) RASH dust Allergy (Uncoded 02/23/17 20:48) unknown dyes Allergy (Uncoded 02/23/17 20:48) unknown grass Allergy (Uncoded 02/23/17 20:48) unknown mold Allergy (Uncoded 02/23/17 20:48) unknown nuts Allergy (Uncoded 02/23/17 20:48) ANGIOEDEMA pollen Allergy (Uncoded 02/23/17 20:48) unknown ragweed Allergy (Uncoded 02/23/17 20:48) unknown tape Allergy (Uncoded 02/23/17 20:48) RASH trees Allergy (Uncoded 02/23/17 20:48) unknown wool Allergy (Uncoded 02/23/17 20:48) RASH Home Medications: Home Meds Medication Instructions Recorded Confirmed Hydrochlorothiazide [HCTZ] 25 mg PO DAILY 10/02/14 02/23/17 Cholecalciferol [Vitamin D 1000 IU] 2,000 unit PO DAILY 01/31/17 02/23/17 Famotidine [Heartburn Prevention] 1 tab PO DAILY PRN 01/31/17 02/23/17 Review of Systems - Physician Review All systems were reviewed & negative as marked: Yes - Review of Systems Constitutional: absent: Fevers, Night Sweats Respiratory: absent: SOB Cardiovascular: absent: Chest Pain Gastrointestinal: absent: Diarrhea, Nausea, Vomiting Genitourinary Female: absent: Dysuria, Frequency, Hematuria, Urine Output Changes Musculoskeletal: Back Pain Physical Exam Vital Signs Reviewed: Yes Vital Signs Temp Pulse Resp BP Pulse Ox 09/29/17 18:53 97.9 F 76 18 180/83 H 97 Temperature: Afebrile Blood Pressure: Hypertensive Pulse: Regular Respiratory Rate: Normal Appearance: Positive for: Well-Appearing, Non-Toxic, Comfortable Pain Distress: None Mental Status: Positive for: Alert and Oriented X 3 - Systems Exam Head: Present: Atraumatic, Normocephalic Pupils: Present: PERRL Extroacular Muscles: Present: EOMI Conjunctiva: Present: Normal Mouth: Present: Moist Mucous Membranes Neck: Present: Normal Range of Motion Respiratory/Chest: Present: Clear to Auscultation, Good Air Exchange. No: Respiratory Distress, Accessory Muscle Use Cardiovascular: Present: Regular Rate and Rhythm, Normal S1, S2. No: Murmurs Abdomen: Present: Normal Bowel Sounds. No: Tenderness, Distention, Peritoneal Signs Back: Present: Midline Tenderness, Paraspinal Tenderness (bilateral lumber tenderness) Upper Extremity: Present: Normal Inspection. No: Cyanosis, Edema Lower Extremity: Present: Normal Inspection. No: Edema Neurological: Present: GCS=15, CN II-XII Intact, Speech Normal Skin: Present: Warm, Dry, Normal Color. No: Rashes Psychiatric: Present: Alert, Oriented x 3, Normal Insight, Normal Concentration Medical Decision Making ED Course and Treatment: 09/29/17 19:47 Impression: 82 year old female presents to the Emergency department complaining of back pain. Plan: -- CT scan of abdomen and pelvis without PO or IV contrast -- Urine culture -- Urinalysis -- Labs -- Toradol, IV fluids -- Reassess and disposition Progress Notes: Report Date : 09/29/2017 20:51:00 EXAM: CT Abdomen and Pelvis Without Intravenous Contrast Dictated By: Seymour Cano MD IMPRESSION: 1. Air within bladder lumen. DDX: Recent instrumentation or cystitis. 2. Diverticulosis without definite CT evidence of diverticulitis. 3. Malpositioned pessary device. 4. Incidental/non-acute findings are described above. 09/29/17 22:10 Will admit for pyelonephritis with IV antibiotics as prior. - Lab Interpretations Lab Results: 09/29/17 20:45 09/29/17 20:45 Lab Results 09/29/17 20:45: Sodium 135, Potassium 4.1, Chloride 104, Carbon Dioxide 23, Anion Gap 12, BUN 14, Creatinine 0.9, Est GFR ( Amer) > 60, Est GFR (Non- Af Amer) 60, Random Glucose 99, Calcium 9.4, Phosphorus 3.1, Magnesium 1.9, Total Bilirubin 0.4, AST 25, ALT 29, Alkaline Phosphatase 82, Total Protein 7.5 , Albumin 4.1, Globulin 3.4, Albumin/Globulin Ratio 1.2 09/29/17 20:45: WBC 6.7, RBC 3.98, Hgb 11.9 L, Hct 36.5, MCV 91.7, MCH 29.9, MCHC 32.6, RDW 13.8, Plt Count 221, MPV 10.1, Gran % 67.3, Lymph % (Auto) 23.0, Barron % (Auto) 8.3 H, Eos % (Auto) 1.0 L, Baso % (Auto) 0.4, Gran # 4.53, Lymph # 1.6, Barron # 0.6, Eos # 0.1, Baso # 0.03 09/29/17 20:10: Urine Color Yellow, Urine Appearance Sl cloudy, Urine pH 6.0, Ur Specific [place] 1.020, Urine Protein Negative, Urine Glucose (UA) Negative, Urine Ketones Negative, Urine Blood Small H, Urine Nitrate Negative, Urine Bilirubin Negative, Urine Urobilinogen 0.2, Ur Leukocyte Esterase Large H, Urine RBC 1 - 3, Urine WBC 5 - 10, Ur Epithelial Cells 4 - 5, Urine Bacteria Small - RAD Interpretation Radiology Orders: 09/29/17 19:46 ABD & PELVIS W/O PO OR IV CONT [CT] Stat - Medication Orders Current Medication Orders: Discontinued Medications Sodium Chloride (Sodium Chloride 0.9%) 500 mls @ 999 mls/hr IV .Q31M STA Stop: 09/29/17 20:16 Last Admin: 09/29/17 20:47 Dose: 999 mls/hr eMAR Start Stop Document 09/29/17 20:47 HI (Rec: 09/29/17 20:47 HI [id number]) Intravenous Solution Start Date 09/29/17 Start Time 20:47 Ketorolac Tromethamine (Toradol) 30 mg IVP STAT STA Stop: 09/29/17 19:47 Last Admin: 09/29/17 20:47 Dose: 30 mg MAR Pain Assessment Document 09/29/17 20:47 HI (Rec: 09/29/17 20:48 [place] [id number] Pain Reassessment Is this a pain reassessment? No Sleep Is patient sleeping during reassessment? No Presence of Pain Presence of Pain Yes Location Pain Location Body Site Back IVP Administration Document 09/29/17 20:47 HI (Rec: 09/29/17 20:48 [place] [id number][place] Charges for Administration # of IVP Administrations 1 - Scribe Statement The provider has reviewed the documentation as recorded by the Scribe Don Kurtz All medical record entries made by the Scribe were at my direction and personally dictated by me. I have reviewed the chart and agree that the record accurately reflects my personal performance of the history, physical exam, medical decision making, and the department course for this patient. I have also personally directed, reviewed, and agree with the discharge instructions and disposition. Disposition/Present on Arrival - Present on Arrival Any Indicators Present on Arrival: No History of DVT/PE: No History of Uncontrolled Diabetes: No Urinary Catheter: No History of Decub. Ulcer: No History Surgical Site Infection Following: None - Disposition Have Diagnosis and Disposition been Completed?: Yes Diagnosis: Pyelonephritis Disposition: HOSPITALIZED Disposition Time: 22:10 Patient Plan: Admission Condition: FAIR Forms: Gertrude (Welsh)
[2017-09-29 20:20] LABS: URINE BILIRUBIN NEGATIVE (NEGATIVE); URINE BLOOD SMALL (NEGATIVE); URINE GLUCOSE (UA) NEGATIVE (NEGATIVE); URINE KETONE NEGATIVE (NEGATIVE); URINE LEUKOCYTE ESTERASE LARGE Leu/uL (NEGATIVE); URINE PROTEIN NEGATIVE mg/dL (<30 mg/dL); URINE UROBILINOGEN 0.2 E.U./dL (<1 E.U./dL)
[2017-09-29 20:24] LABS: URINE APPEARANCE SL CLOUDY (CLEAR); URINE COLOR YELLOW (YELLOW)
[2017-09-29 20:28] LABS: URINE BACTERIA SMALL (NEG)
--- NOTE | 2017-09-29 20:52 | CT ---
EXAM: CT Abdomen and Pelvis Without Intravenous Contrast CLINICAL HISTORY: 82 years old, female; Pain; Abdominal pain; Flank; Left; Additional info: Flank pain TECHNIQUE: Axial computed tomography images of the abdomen and pelvis without intravenous contrast. All CT scans at this facility use one or more dose reduction techniques, viz.: automated exposure control; ma/kV adjustment per patient size (including targeted exams where dose is matched to indication; i.e. head); or iterative reconstruction technique. Coronal and sagittal reformatted images were created and reviewed. COMPARISON: CT - ABD PELVIS PO CONTRAST ONLY 2017-02-23 23:56 FINDINGS: Lower thorax: Borderline cardiomegaly. Mild atelectasis/scarring. Small right diaphragmatic hernia containing fat. Small hiatal hernia. ABDOMEN: Liver: Unremarkable. Gallbladder and bile ducts: Cholecystectomy. No significant ductal dilation. Pancreas: Unremarkable. No ductal dilation. Spleen: No splenomegaly. Adrenals: No mass. Kidneys and ureters: Too small to characterize lesion within RIGHT kidney. 0.5 cm hyperdense lesion within left kidney, stable. No renal calculi. No hydronephrosis. Stomach and bowel: Duodenal diverticulum. Scattered diverticula within colon. No associated inflammatory stranding. No definite mural thickening. No obstruction. Appendix: No findings to suggest acute appendicitis. PELVIS: Bladder: Small focus of air within lumen. No stones. Reproductive: Vertically oriented pessary device. ABDOMEN and PELVIS: Intraperitoneal space: No significant fluid collection. No free air. Bones/joints: Degenerative changes of spine. No acute fracture. Soft tissues: Small LEFT inguinal hernia containing fat. Vasculature: [id number] atherosclerotic disease. No aneurysm. Lymph nodes: No pathologically enlarged lymph nodes. IMPRESSION: 1. Air within bladder lumen. DDX: Recent instrumentation or cystitis. 2. Diverticulosis without definite CT evidence of diverticulitis. 3. Malpositioned pessary device. 4. Incidental/non-acute findings are described above.
[2017-09-29 20:56] LABS: BASO # 0.03 K/mm3 (0.0-2.0); BASO % 0.4 % (0.0-3.0); EOS # 0.1 (0.0-0.7); GRAN # 4.53 (1.4-6.5); GRAN % 67.3 % (50.0-68.0); HEMATOCRIT 36.5 % (36.0-48.0); LYMPH # 1.6 (1.2-3.4); MEAN CELL VOLUME 91.7 fl (80.0-105.0); MEAN CORPUSCULAR HEMOGLOBIN 29.9 pg (25.0-35.0); MEAN CORPUSCULAR HGB CONC 32.6 g/dl (31.0-37.0); MEAN PLATELET VOLUME 10.1 fl (7.0-11.0); MONO # 0.6 (0.1-0.6); MONO % 8.3 % (1.0-6.0); RED CELL DISTRIBUTION WIDTH 13.8 % (11.5-14.5); WHITE BLOOD COUNT 6.7 10^3/ul (4.5-11.0)
[2017-09-29 21:10] LABS: ALB/GLOB RATIO 1.2 (1.1-1.8); ALKALINE PHOSPHATASE 82 U/L (38-126); ALT/SGPT 29 U/L (7-56); AST/SGOT 25 U/L (14-36); BILIRUBIN,TOTAL 0.4 mg/dL (0.2-1.3); BLOOD UREA NITROGEN 14 mg/dL (7-21); CALCIUM 9.4 mg/dL (8.4-10.5); CARBON DIOXIDE 23 mmol/L (21-33); CHLORIDE 104 mmol/L (98-107); GFR AFRICAN-AMERICAN > 60; GLUCOSE,RANDOM 99 mg/dL (70-110); MAGNESIUM 1.9 mg/dL (1.7-2.2); PHOSPHOROUS 3.1 mg/dL (2.5-4.5); POTASSIUM 4.1 mmol/L (3.6-5.0); SODIUM 135 mmol/L (132-148); TOTAL PROTEIN 7.5 g/dL (5.8-8.3)
[2017-09-29] MEDS ORDERED: Aztreonam 1 Gm in NS 100mL 100 ML IVPB STA (22:09)
[2017-09-29] MEDS ORDERED: Morphine 4 mg/ml ISec IVP STA (22:14)
[2017-09-30 00:59] VITALS: RESP 20
[2017-09-30] MEDS: Levothyroxine 50 MCG TAB PO SCH (05:27)
[2017-09-30] MEDS ORDERED: Aztreonam 1 Gm in NS 100mL 100 ML IVPB SCH (06:00)
--- NOTE | 2017-09-30 06:31 | HP ---
HISTORY OF PRESENT ILLNESS: The patient is an 82-year-old, known to me from previous admission, came to emergency room because of back pain. She states that this back pain was different than her usual back pain. She recently was evaluated by Dr. Garcia who gave her epidural with some relief. No history of fever or chills. No nausea or vomiting. No diarrhea. No chest pain. No blood in the urine. PAST MEDICAL HISTORY: Significant for, 1. Hypertension. 2. Hypothyroidism. 3. History of pyelonephritis. 4. Moderate obesity. 5. Degenerative disk disease. ALLERGIES: PATIENT HAS MULTIPLE ALLERGIES INCLUDING, 1. RAGWEED. 2. POLLEN. 3. MOLD. 4. GRASS. 5. DYES. 6. DUST. 7. BEE VENOM. 8. TOMATO. 9. DETROL. 10. PORK. 11. PENICILLIN. 12. LACTOSE. 13. GABAPENTIN. 14. KEFLEX. 15. CIPRO. 16. ASPIRIN. 17. AMITRIPTYLINE. SOCIAL HISTORY: She lives with her son. Denies smoking, drinking or alcohol use. REVIEW OF SYSTEMS: Significant for back pain and feels somewhat nauseous. PHYSICAL EXAMINATION: GENERAL: On examination, she is awake, alert, oriented, and communicative. VITAL SIGNS: She is afebrile. Pulse 76, respirations 18, blood pressure 118/83. LUNGS: Bilateral fair airflow. No rhonchi or crackle. HEART: S1 and S2 audible. ABDOMEN: Soft, nontender. No rebound, no guarding. NEUROLOGIC: Patient is awake, alert, oriented. Able to communicate. LABORATORY DATA: WBC 6.7, hemoglobin 11.9, hematocrit 36.5, platelets of 221. Chemistry: Sodium 135, potassium 4.1, chloride 104, CO2 of 23, BUN 14, creatinine 0.9, blood sugar around 99. LFTs are within normal limits. Urinalysis shows large leukocytes, small blood. CT scan of the abdomen and pelvis was done, which shows some air within the bladder, questionable cystitis. She also had diverticulosis, but no evidence of diverticulitis. ASSESSMENT: 1. Cystitis versus pyelonephritis. 2. Degenerative disk disease. 3. Hypertension. 4. Hypothyroidism. PLAN: We will start her on Azactam. Follow up blood culture and urine culture. Azactam 1 dose was given, we will give q. 8. Resume her usual medications. We will re-evaluate the patient in a.m. Norberto Ambrose MD
[2017-09-30] MEDS: Aztreonam 1 Gm in NS 100mL 100 ML IV SCH ×2 (14:05→21:27)
--- NOTE | 2017-09-30 22:24 | HP ---
HISTORY OF PRESENT ILLNESS: The patient is an 82-year-old, states she was having back pain, she went to see Dr. Garcia who gave her couple of trigger point injections in the neck and lower mid back and low back, she felt a little better for a day or two and then the effect of injection , so complaining of low back pain and she thinks that could be her kidney infection because she has similar feeling and pain when she had UTI in the past, so she came to emergency room for further evaluation. Denies any fever. Does complain of chills here and there. PHYSICAL EXAMINATION: VITAL SIGNS: She is afebrile, pulse 67, respirations 20, and blood pressure 140/75. LUNGS: Bilateral good airflow. No rhonchi or crackle. HEART: S1 and S2 audible. ABDOMEN: Soft, obese, and nontender. No rebound. No guarding. NEUROLOGIC: She is awake, alert, oriented, communicative, and ambulatory. LABORATORY DATA: The urine has large leukocyte and WBC is 5 to 10. Her urine culture and blood cultures are pending. ASSESSMENT: 1. Back pain probably degenerative disk disease and spinal stenosis, rule out urinary tract infection. 2. Hypothyroidism. 3. Hypertension. 4. History of diverticulosis. PLAN: Currently, the patient is on Azactam 1 g q.8 hours. I will discontinue IV fluid. Tramadol will be given as needed. We will follow up cultures to know the sensitivity that she is sensitive to oral medication, we will make early discharge plan. Norberto Ambrose MD
--- NOTE | 2017-09-30 23:29 | CON ---
DATE: 09/30/2017 The patient is seen early this morning in room 360, bed #2. CHIEF COMPLAINT: Right flank pain x3 days duration. HISTORY OF PRESENT ILLNESS: This is an 82-year-old female with past medical history of kidney stones and hypertension, hypothyroidism, obesity with a BMI of 33, history of urinary tract infection and uterine prolapse, history of diverticulitis, gastroesophageal reflux disease and history of cholecystectomy, appendectomy and tonsillectomy who was admitted with right flank pain x3 days. The patient was seen in the emergency room by Dr. Norris , admitted with a diagnosis of pyelonephritis. The patient had received epidural injection for back pain by Dr. Garcia. The patient denies any headaches, blurred vision. She has denied any chest pain. She has occasional dysuria, frequency on biopsy, low-grade fevers. PAST MEDICAL HISTORY: Significant for hypothyroidism, kidney stones, diverticulitis, GERD, hypertension, obesity, BMI of 31, urinary tract infections and prolapsed uterus. PAST SURGICAL HISTORY: Significant for appendectomy, cholecystectomy, tonsillectomy. ALLERGIES: THE PATIENT HAS MULTIPLE ALLERGIES INCLUDING PENICILLIN, SULFA, CLINDAMYCIN, CEPHALEXIN AND CIPRO. THE PATIENT ALSO IS ALLERGIC TO RAGWEED, POLLEN, NUTS, MOLD, GRASS, DYES, DUST, BEEN VENOM, TOMATOES, TREES, TAPE, AMITRIPTYLINE, ASPIRIN, GABAPENTIN, LACTASE, OMEPRAZOLE, OXYCODONE, PORK, SHELLFISH AND . MEDICATIONS: At home are reviewed and include tramadol, Synthroid, hydrochlorothiazide, famotidine, naproxen, vitamin D. PHYSICAL EXAMINATION: GENERAL: Patient is in bed, in no acute distress, appears comfortable. VITAL SIGNS: With a temperature of 98.4, heart rate of 64, respiratory rate of 20 and blood pressure of 155/70. HEENT: Unremarkable. NECK: Supple. LUNGS: Have decreased breath sounds. HEART: Normal S1, S2. ABDOMEN: Soft, nontender. No rebound or guarding. No masses. There is right-sided CVA tenderness. LABORATORY DATA: Reveals a white count of 6.7, hemoglobin 11, platelets of 221. Chemistries reveals a BUN of 14, creatinine of 0.9. LFTs are normal and urinalysis reveals 5-10 WBCs, large leukocyte esterase and small bacteria. Microbiology is pending. The patient had a CT scan of the abdomen and pelvis and which is noted to have air in the bladder and diverticulosis and Dr. Ambrose's history and physical examination is reviewed. ASSESSMENT AND PLAN: This is an 82-year-old female with history of kidney stones, diverticulitis, gastroesophageal reflux disease, hypertension, obesity, BMI of 31, urinary tract infection and prolapsed uterine now presenting with right flank pain and positive urinalysis with MULTIPLE ALLERGIES INCLUDING PENICILLIN, SULFA, CLINDAMYCIN, CEPHALEXIN, CIPRO. 1. Right-sided pyelonephritis with positive flank pain, tenderness and with multiple allergies. We will treat the patient with the Azactam 1 g IV q. 8 h. Pending the urine and blood cultures and review of the CT scan again and will make further recommendations. Anjum Simon MD
[2017-10-01] MEDS: Levothyroxine 50 MCG TAB PO SCH (05:35)
[2017-10-01] MEDS: Aztreonam 1 Gm in NS 100mL 100 ML IV SCH ×3 (05:35→22:14)
[2017-10-01 06:36] LABS: HEMATOCRIT 37.9 % (36.0-48.0); MEAN CELL VOLUME 91.3 fl (80.0-105.0); MEAN CORPUSCULAR HEMOGLOBIN 29.4 pg (25.0-35.0); MEAN CORPUSCULAR HGB CONC 32.2 g/dl (31.0-37.0); MEAN PLATELET VOLUME 10.6 fl (7.0-11.0); RED CELL DISTRIBUTION WIDTH 14.1 % (11.5-14.5); WHITE BLOOD COUNT 5.6 10^3/ul (4.5-11.0)
[2017-10-01 06:45] LABS: ALB/GLOB RATIO 1.2 (1.1-1.8); ALKALINE PHOSPHATASE 78 U/L (38-126); ALT/SGPT 25 U/L (7-56); AST/SGOT 21 U/L (14-36); BILIRUBIN,TOTAL 0.5 mg/dL (0.2-1.3); BLOOD UREA NITROGEN 16 mg/dL (7-21); CALCIUM 9.5 mg/dL (8.4-10.5); CARBON DIOXIDE 24 mmol/L (21-33); CHLORIDE 104 mmol/L (98-107); GFR AFRICAN-AMERICAN > 60; GLUCOSE,RANDOM 84 mg/dL (70-110); POTASSIUM 4.2 mmol/L (3.6-5.0); SODIUM 137 mmol/L (132-148); TOTAL PROTEIN 7.1 g/dL (5.8-8.3)
[2017-10-01] MEDS: TraMADol/Apap 37.5/325 mg Tab PO PRN ×2 (08:12→22:22)
[2017-10-01] MEDS: Lidocaine 5% Patch TD SCH (14:18)
[2017-10-01] MEDS: POLYETHYLENE GLYCOL 3350 17 GM/Dose PACKET PO SCH (14:18)
--- NOTE | 2017-10-01 18:32 | PN ---
DATE: SUBJECTIVE: The patient is an 82-year-old, seen and examined, still complaint of back pain. No history of fever. No chills. No nausea or vomiting. No burning when micturition. No frequency of urination. PHYSICAL EXAMINATION: VITAL SIGNS: She is afebrile. Pulse 67, respirations 20, blood pressure 117/66. LUNGS: Bilateral good airflow. No rhonchi or crackle. HEART: S1 and S2, audible. ABDOMEN: Soft, nontender. No rebound. No guarding. NEUROLOGIC: She is awake, alert, and oriented. Able to communicate. Able to ambulate. EXTREMITIES: Bilateral leg no edema. LABORATORY DATA: Her blood cultures are negative. WBC is 5.6, hemoglobin 12, hematocrit 37.9, platelet 236. Sodium 137, potassium 4.2, chloride 104, CO2 24, BUN 16, creatinine 0.9, blood sugar of 84. ASSESSMENT: 1. Intractable back pain, pyelonephritis versus degenerative disk disease. 2. Hypothyroidism. 3. Generalized osteoarthritis. 4. Spinal stenosis. PLAN: Awaiting urine cultures. Once the sensitivity is available, we will make discharge plan regarding to the sensitivity. Continue Azactam for now. Nroberto Ambrose MD
--- NOTE | 2017-10-01 22:00 | PN ---
DATE: 10/01/2017 SUBJECTIVE: Patient is in bed, in no acute distress, nontoxic. PHYSICAL EXAMINATION: VITAL SIGNS: Temperature is 98, blood pressure is 126/50, and respiratory rate of 20. HEENT: Unremarkable. NECK: Supple. LUNGS: Have decreased breath sounds. HEART: Normal S1, S2. ABDOMEN: Soft, nontender. LABORATORY DATA: Reveals a white count of 6.7, hemoglobin of 11 . Urinalysis as noted. The chemistry is entirely within normal limits. Microbiology reveals the blood cultures are negative. The urine culture is Gram-negative helen, further identification and sensitivity is pending. Review of the orders reveals the patient to be on aztreonam. ASSESSMENT AND PLAN: This is an 82-year-old female, seen earlier this morning in room 360, bed 2 with a past medical history significant for kidney stones, hypertension, hypothyroidism, obesity with body mass index of 33, history of urinary tract infection, uterine prolapse, history of diverticulitis, and gastroesophageal reflux disease who is admitted on this admission with right flank pain, positive urinalysis, MULTIPLE ALLERGIES INCLUDING PENICILLIN, SULFA, CLINDAMYCIN, CEPHALEXIN, AND CIPRO. 1. Gram-negative helen, right-sided pyelonephritis, currently on Azactam. We will follow closely with you pending identification and sensitivity on the urine, of the Gram-negative helen. We will also request a repeat urinalysis and a urine culture. Anjum Simon MD
[2017-10-02] MEDS: Aztreonam 1 Gm in NS 100mL 100 ML IV SCH ×2 (05:23→13:23)
[2017-10-02] MEDS: Levothyroxine 50 MCG TAB PO SCH (05:24)
[2017-10-02 08:35] VITALS: BP 139/77; PULSE 62; TEMP 97.5; O2SAT 98
[2017-10-02] MEDS: Lidocaine 5% Patch TD SCH (09:31)
[2017-10-02] MEDS: POLYETHYLENE GLYCOL 3350 17 GM/Dose PACKET PO SCH (09:31)
--- NOTE | 2017-10-02 20:36 | PN ---
DATE: 10/02/2017 SUBJECTIVE: The patient is seen early this morning in room 360, bed 2. No fevers and no chills. PHYSICAL EXAMINATION: VITAL SIGNS: Temperature is 98, blood pressure is 112/70, respiratory rate of 16. HEENT: Examination of HEENT is unremarkable. NECK: Supple. LUNGS: Have decreased breath sounds. HEART: Normal S1, S2. ABDOMEN: Soft. LABORATORY EXAMINATION: Reveals a white count of 6.7, hemoglobin of 11. Chemistries reveal a BUN of 14, creatinine of 0.9, and wbc's in urinalysis is noted. Microbiology reveals a gram-negative helen in the urine, less than 10,000 colonies. The patient has multiple allergies including cephalexin, Cipro, gabapentin. ASSESSMENT AND PLAN: An 82-year-old female who was seen early this morning in room 360 with a history of kidney stone, hypertension, hypothyroidism, obesity with a BMI of 33 with a history of urinary tract infection due to uterine prolapse, history of diverticulitis and gastroesophageal reflux disease, who has multiple allergies including penicillin, sulfa, clindamycin, cephalexin, and Cipro, with a gram-negative right-sided pyelonephritis, on Azactam. We will discuss with you. Anjum Simon MD
--- NOTE | 2017-10-03 03:22 | DS ---
HISTORY OF PRESENT ILLNESS: Patient is an 82-year-old, seen and examined, doing well, no fever, no chills, no nausea or vomiting, no diarrhea. PHYSICAL EXAMINATION: VITAL SIGNS: She is afebrile, pulse 62, respirations 20, blood pressure 139/77. LUNGS: Bilateral fair airflow. No rhonchi or crackle. HEART: S1 and S2 audible. No murmur. ABDOMEN: Soft, nontender. No rebound. No guarding. NEUROLOGIC: Patient is awake, alert, and oriented. Communicative, ambulatory. LABORATORY DATA: Her urine culture is positive for gram-negative rods, but colony count is less than 10,000. ASSESSMENT: 1. Intractable back pain, recent trigger point injection by Dr. Garcia. 2. Severe degenerative disk disease with spinal stenosis. 3. Subclinical urinary tract infection. 4. Hypertension. 5. Hypothyroidism. PLAN: Patient is going to be discharged today. She has been given prescription of tramadol 50 mg q.6 hours p.r.n. She will resume all her medications as prior to admission. She will be on naproxen as needed, levothyroxine 50 mcg daily, famotidine 1 tablet twice a day, and she will follow with us. Norberto Ambrose MD
== END 2017-10-02 14:52 | disposition home or self-care (01) | DRG 690 ==
LOC: ED 18:41 → ERH 22:10 → 3RNO 23:24
PROVIDERS: ADMIT Internal Medicine; ATTEND Internal Medicine
DX: N12 Tubulo-interstitial nephritis, not specified as acute or chronic (principal); I10 Essential (primary) hypertension; E03.9 Hypothyroidism, unspecified; M51.9 Unspecified thoracic, thoracolumbar and lumbosacral intervertebral disc disorder; M48.00 Spinal stenosis, site unspecified; K57.90 Diverticulosis of intestine, part unspecified, without perforation or abscess without bleeding; K21.9 Gastro-esophageal reflux disease without esophagitis; E66.9 Obesity, unspecified; N81.4 Uterovaginal prolapse, unspecified; M15.9 Polyosteoarthritis, unspecified; Z88.0 Allergy status to penicillin; Z68.33 Body mass index [BMI] 33.0-33.9, adult; Z88.2 Allergy status to sulfonamides

== ENCOUNTER 2018-09-30 14:17 | Inpatient (IN) | payer MEDICARE, OTHER ==
--- NOTE | 2018-09-30 15:03 | ED PDOC ---
Arrival/HPI - General Historian: Patient - History of Present Illness Narrative History of Present Illness (Text): 09/30/18 14:59 83 y/o F with PMHx of degenerative disk disease, spondylolisthesis, hypothyroidism, HTN, diverticulitis, morbid obesity presents to ED with complaints of difficulty ambulating, b/l leg pain, R worse than L, generalized weakness, headache and nausea. She reports she had tried getting out of bed this morning when she felt her knees buckle and she fell. She does not recall whether she hit her head. She reports she has been unable to walk for about 2 weeks, and her son needed to carry her around. She reports she can ambulate at baseline. She sees Dr. Garcia for epidural injections regularly, however the last visit to him was about 1 year ago. She reports bilateral leg pain, especially upon palpation. She endorses chills and nausea. She denies fevers, night sweats, dizziness, vomiting, diarrhea, dysuria. PMD: Dr. Ambrose 09/30/18 16:03 09/30/18 16:48 Time/Duration: Prior to Arrival Symptom Onset: Gradual Symptom Course: Unchanged Quality: Aching Context: Sitting <Fred Barrow - Last Filed: 09/30/18 19:01> <Edward Oakes - Last Filed: 10/04/18 13:14> - General Chief Complaint: Lower Extremity Problem/Injury Time Seen by Provider: 09/30/18 14:20 Past Medical History - Provider Review Nursing Documentation Reviewed: Yes - Infectious Disease Hx of Infectious Diseases: None - Tetanus Immunization Tetanus Immunization: Unknown - Cardiac Hx Hypertension: Yes - Pulmonary Hx Respiratory Tract Infection: Yes - Neurological Hx Migraine: Yes - HEENT Hx HEENT Disorder: No - Renal Hx Renal Disorder: Yes Hx Kidney Stones: Yes - Endocrine/Metabolic Hx Diabetes Mellitus Type 2: Yes Hx Hypothyroidism: Yes - Hematological/Oncological Other/Comment: "low immune system", fibroid tumors and fibrocystic breasts - Integumentary Hx Dermatological Disorder: No - Musculoskeletal/Rheumatological Hx Arthritis: Yes - Gastrointestinal Hx Diverticulitis: Yes Hx Gastroesophageal Reflux: Yes - Genitourinary/Gynecological Hx Genitourinary Disorders: Yes - Psychiatric Hx Psychophysiologic Disorder: No Hx Substance Use: No - Surgical History Hx Appendectomy: Yes Hx Cholecystectomy: Yes - Anesthesia Hx Anesthesia: Yes - Suicidal Assessment Feels Threatened In Home Enviroment: No <Fred Barrow - Last Filed: 09/30/18 19:01> Family/Social History - Physician Review Nursing Documentation Reviewed: Yes Family/Social History: Hypertension Smoking Status: Never Smoked Hx Alcohol Use: No Hx Substance Use: No Hx Substance Use Treatment: No <Fred Barrow - Last Filed: 09/30/18 19:01> Allergies/Home Meds <Fred Barrow - Last Filed: 09/30/18 19:01> <Edward Oakes - Last Filed: 10/04/18 13:14> Allergies/Adverse Reactions: Allergies amitriptyline Allergy (Verified 09/30/18 14:20) RASH aspirin Allergy (Verified 09/30/18 14:20) RASH cephalexin Allergy (Verified 09/30/18 14:20) RASH ciprofloxacin Allergy (Verified 09/30/18 14:20) RASH gabapentin Allergy (Verified 09/30/18 14:20) RASH omeprazole Allergy (Verified 09/30/18 14:20) RASH oxycodone Allergy (Verified 09/30/18 14:20) NAUSEA Penicillins Allergy (Verified 09/30/18 14:20) URTICARIA PORK Allergy (Verified 09/30/18 14:20) unknown shellfish derived Allergy (Verified 09/30/18 14:20) RASH tolterodine tartrate [From Detrol] Allergy (Verified 09/30/18 14:20) RASH tomato Allergy (Verified 09/30/18 14:20) RASH bee venom Allergy (Uncoded 09/30/18 14:20) RASH dust Allergy (Uncoded 09/30/18 14:20) unknown dyes Allergy (Uncoded 09/30/18 14:20) unknown grass Allergy (Uncoded 09/30/18 14:20) unknown mold Allergy (Uncoded 09/30/18 14:20) unknown nuts Allergy (Uncoded 09/30/18 14:20) ANGIOEDEMA pollen Allergy (Uncoded 09/30/18 14:20) unknown ragweed Allergy (Uncoded 09/30/18 14:20) unknown tape Allergy (Uncoded 09/30/18 14:20) RASH trees Allergy (Uncoded 09/30/18 14:20) unknown wool Allergy (Uncoded 09/30/18 14:20) RASH Home Medications: Home Meds Medication Instructions Recorded Confirmed RX: Hydrochlorothiazide [HCTZ] 25 mg PO DAILY 10/02/14 02/23/17 RX: Cholecalciferol [Vitamin D 2,000 unit PO DAILY 01/31/17 02/23/17 1000 IU] RX: Famotidine [Heartburn 1 tab PO DAILY PRN 01/31/17 02/23/17 Prevention] Review of Systems - Review of Systems Constitutional: Normal Eyes: Normal ENT: Normal Respiratory: Normal Cardiovascular: Normal Gastrointestinal: Nausea Genitourinary Female: Normal Musculoskeletal: Back Pain, Joint Swelling Skin: Other (chronic LE ) Neurological: Headache Endocrine: Normal Hemo/Lymphatic: Normal Psychiatric: Normal <Fred Barrow Filed: 09/30/18 19:01> Physical Exam Vital Signs Reviewed: Yes Vital Signs Temp Pulse Resp BP Pulse Ox 09/30/18 14:17 97.5 F L 80 18 128/80 99 Temperature: Afebrile Blood Pressure: Normal Pulse: Regular Respiratory Rate: Normal Appearance: Positive for: Well-Appearing, Non-Toxic, Comfortable Pain Distress: None Mental Status: Positive for: Alert and Oriented X 3 - Systems Exam Head: Present: Atraumatic, Normocephalic Pupils: Present: PERRL Extroacular Muscles: Present: EOMI Conjunctiva: Present: Normal Mouth: Present: Moist Mucous Membranes Neck: Present: Normal Range of Motion Respiratory/Chest: Present: Clear to Auscultation, Good Air Exchange. No: Respiratory Distress, Accessory Muscle Use Cardiovascular: Present: Regular Rate and Rhythm, Normal S1, S2. No: Murmurs Abdomen: No: Tenderness, Distention, Peritoneal Signs Back: Present: Paraspinal Tenderness (L4-S1) Upper Extremity: Present: Normal Inspection. No: Cyanosis, Edema Lower Extremity: Present: Edema, Tenderness Neurological: Present: GCS=15, CN II-XII Intact, Speech Normal, Normal Sensory Function, Normal Cerebellar Funct, Normal 2Pt Descrimination, Other (LE sensation/strength intact. 4/5 strength b/l. UE strength/sensation intact. 5/5 strength) Skin: Present: Warm, Dry, Rashes, Normal Color Psychiatric: Present: Alert, Oriented x 3, Normal Insight, Normal Concentration <Fred Barrow Filed: 09/30/18 19:01> Vital Signs Temp Pulse Resp BP Pulse Ox 09/30/18 14:17 97.5 F L 80 18 128/80 99 <Edward Oakes - Last Filed: 10/04/18 13:14> Medical Decision Making ED Course and Treatment: Impression: 83 y/o F with PMHx of degenerative disk disease, spondylolisthesis, hypothyroidism, HTN, diverticulitis, morbid obesity presents to ED with complaints of difficulty ambulating, b/l leg pain, R worse than L, generalized weakness, headache and nausea. Plan: Pt presenting with near-syncope. Pt reports continued headache, uncomfortable w/ ambulation Labs/imaging/tests wnl Discussion w/ PMD Dr. Mercado's partner, Dr. Ambrose, agrees to admit patient overnight for observation 09/30/18 16:54 - Lab Interpretations I have reviewed the lab results: Yes - RAD Interpretation Radiology Orders: 09/30/18 14:55 CHEST PORTABLE [RAD] Stat DUPLEX LOWER EXTRM VEIN BILAT [US] Stat 09/30/18 14:56 HEAD W/O CONTRAST [CT] Stat - EKG Interpretation Interpreted by ED Physician: Yes Type: 12 lead EKG - Medication Orders Current Medication Orders: Discontinued Medications Acetaminophen (Tylenol 325mg Tab) 975 mg PO STAT STA Stop: 09/30/18 14:57 <Fred Barrow - Last Filed: 09/30/18 19:01> ED Course and Treatment: 09/30/18 15:10 Impression: 83 year old female presents to the ED complaining of difficulty ambulating and generalized weakness. In agreement with resident note which contains more details about the patient. Patient seen and evaluated with resident. Came up with plan and treatment together. Plan: -- CT of Head -- EKG -- Labs -- Chest X-ray -- Tylenol -- Zofran -- Urinalysis -- US of Lower Extremity 10/04/18 13:13 pt with "right leg gave out". labs ct neg. pt lives byherslef. accpeted by dr ambrsoe for admssion for pt eval for gait dysfunction - Lab Interpretations Lab Results: 09/30/18 15:04 Lab Results 09/30/18 15:04: PT 11.2, INR 0.98, APTT 29.1 09/30/18 15:04: WBC 6.0, RBC 4.20, Hgb 12.5, Hct 38.3, MCV 91.2, MCH 29.8, MCHC 32.6, RDW 14.2, Plt Count 259, MPV 11.0, Gran % 67.7, Lymph % (Auto) 24.5, [place] % (Auto) 5.8, Eos % (Auto) 1.3 L, Baso % (Auto) 0.7, Gran # 4.07, Lymph # (Auto) 1.5, [place] # (Auto) 0.4, Eos # (Auto) 0.1, Baso # (Auto) 0.04 - RAD Interpretation Radiology Orders: 09/30/18 14:55 CHEST PORTABLE [RAD] Stat DUPLEX LOWER EXTRM VEIN BILAT [US] Stat 09/30/18 14:56 HEAD W/O CONTRAST [CT] Stat - Medication Orders Current Medication Orders: Discontinued Medications Acetaminophen (Tylenol 325mg Tab) 975 mg PO STAT STA Stop: 09/30/18 14:57 Last Admin: 09/30/18 15:06 Dose: 975 mg Ondansetron HCl (Zofran Inj) 4 mg IVP STAT STA Stop: 09/30/18 15:04 Last Admin: 09/30/18 15:07 Dose: 4 mg IVP Administration Document 09/30/18 15:07 EQ (Rec: 09/30/18 15:07 EQ [facility] Charges for Administration # of IVP Administrations 1 <Edward Oakes - Last Filed: 10/04/18 13:14> - PA / ROAD OILER / Resident Statement JULIANNA has reviewed & agrees with the documentation as recorded. / has examined the patient and agrees with the treatment plan. - Scribe Statement The provider has reviewed the documentation as recorded by the Scribe <Fred Barrow - Last Filed: 09/30/18 19:01> - PA / ROAD OILER / Resident Statement / has reviewed & agrees with the documentation as recorded. / has examined the patient and agrees with the treatment plan. - Scribe Statement The provider has reviewed the documentation as recorded by the Yaya Sharp. All medical record entries made by the Scribe were at my direction and personally dictated by me. I have reviewed the chart and agree that the record accurately reflects my personal performance of the history, physical exam, medical decision making, and the department course for this patient. I have also personally directed, reviewed, and agree with the discharge instructions and disposition. <Edward Oakes - Last Filed: 10/04/18 13:14> Disposition/Present on Arrival - Present on Arrival Any Indicators Present on Arrival: Yes History of DVT/PE: Yes History of Uncontrolled Diabetes: No Urinary Catheter: No History of Decub. Ulcer: No History Surgical Site Infection Following: None - Disposition Have Diagnosis and Disposition been Completed?: Yes Disposition Time: 16:49 Patient Plan: Admission <Fred Barrow - Last Filed: 09/30/18 19:01> <Edward Oakes - Last Filed: 10/04/18 13:14> - Disposition Diagnosis: Near syncope, Leg pain, Nausea Disposition: HOSPITALIZED Patient Problems: Current Active Problems Problem Status Onset Leg pain Acute Nausea Acute Near syncope Acute Condition: FAIR
[2018-09-30 15:13] LABS: BASO # 0.04 K/mm3 (0.0-2.0); BASO % 0.7 % (0.0-3.0); EOS # 0.1 (0.0-0.7); EOS % 1.3 % (1.5-5.0); GRAN # 4.07 (1.4-6.5); GRAN % 67.7 % (50.0-68.0); HEMOGLOBIN 12.5 g/dL (12.0-16.0); LYMPH # 1.5 (1.2-3.4); LYMPH % 24.5 % (22.0-35.0); MEAN CELL VOLUME 91.2 fl (80.0-105.0); MEAN CORPUSCULAR HEMOGLOBIN 29.8 pg (25.0-35.0); MEAN CORPUSCULAR HGB CONC 32.6 g/dl (31.0-37.0); MONO # 0.4 (0.1-0.6); MONO % 5.8 % (1.0-6.0); RBC 4.2 10^6/uL (3.5-6.1); RED CELL DISTRIBUTION WIDTH 14.2 % (11.5-14.5)
[2018-09-30 15:21] LABS: INR 0.98; PARTIAL THROMBOPLASTIN TIME 29.1 Seconds (25.1-36.5); PROTHROMBIN TIME 11.2 SECONDS (9.4-12.5)
--- NOTE | 2018-09-30 15:54 | US ---
HISTORY: Leg pain and swelling. Evaluate for DVT PHYSICIAN(S): Dae Louie MD. TECHNIQUE: Duplex sonography and color-flow Doppler with graded compression were used to evaluate the deep venous systems of both lower extremities. FINDINGS: The visualized deep venous systems of both lower extremities are sonographically normal and compressible. Normal wave forms and augmentation are seen. There is no sonographic evidence for deep venous thrombosis in the visualized segments of both lower extremities. IMPRESSION: No sonographic evidence for deep venous thrombosis in the visualized segments of both lower extremities.
--- NOTE | 2018-09-30 15:58 | CT ---
Date of service: 09/30/2018 PROCEDURE: CT HEAD WITHOUT CONTRAST. HISTORY: headache COMPARISON: None available. TECHNIQUE: Axial computed tomography images were obtained through the head/brain without intravenous contrast. Radiation dose: Total exam DLP = 1078.3 mGy-cm. This CT exam was performed using one or more of the following dose reduction techniques: Automated exposure control, adjustment of the mA and/or kV according to patient size, and/or use of iterative reconstruction technique. FINDINGS: HEMORRHAGE: No intracranial hemorrhage. BRAIN: No mass effect or edema. Chronic white matter disease. VENTRICLES: Unremarkable. No hydrocephalus. CALVARIUM: Unremarkable. PARANASAL SINUSES: Unremarkable as visualized. No significant inflammatory changes. MASTOID AIR CELLS: Unremarkable as visualized. No inflammatory changes. OTHER FINDINGS: None. IMPRESSION: No acute hemorrhage.
[2018-09-30 16:20] LABS: ALB/GLOB RATIO 1.1 (1.1-1.8); ALBUMIN 3.8 g/dL (3.0-4.8); ALT/SGPT 21 U/L (7-56); AST/SGOT 20 U/L (14-36); BLOOD UREA NITROGEN 22 mg/dL (7-21); CALCIUM 9.2 mg/dL (8.4-10.5); GFR NON-AFRICAN AMERICAN 53
[2018-09-30 16:31] LABS: TROPONIN I < 0.01 ng/mL
[2018-09-30 16:58] LABS: URINE BILIRUBIN NEGATIVE (NEGATIVE); URINE BLOOD SMALL (NEGATIVE); URINE GLUCOSE (UA) NEGATIVE (NEGATIVE); URINE LEUKOCYTE ESTERASE MODERATE Leu/uL (NEGATIVE); URINE PROTEIN NEGATIVE mg/dL (<30 mg/dL); URINE UROBILINOGEN 0.2 E.U./dL (<1 E.U./dL)
[2018-09-30 17:00] LABS: URINE APPEARANCE CLEAR (CLEAR); URINE COLOR LIGHT YELLOW (YELLOW)
[2018-09-30 17:22] LABS: URINE BACTERIA MOD /hpf; URINE WBC 25 - 30 /hpf (0-6)
[2018-09-30] MEDS ORDERED: Tmp-Smz 800 mg-160 mg DS Tab PO STA (17:24)
[2018-09-30] MEDS: Aztreonam 1 Gm in NS 100mL 100 ML IVPB SCH (21:35)
[2018-09-30 22:32] VITALS: BMI 26.7
[2018-10-01] MEDS: Aztreonam 1 Gm in NS 100mL 100 ML IVPB SCH ×3 (05:30→22:28)
[2018-10-01] MEDS: Levothyroxine 50 MCG TAB PO SCH (05:31)
--- NOTE | 2018-10-01 05:39 | HP ---
DATE OF EXAM: 09/30/2018 HISTORY OF PRESENT ILLNESS: The patient is 83 years old, known to me from multiple previous admissions, came to emergency room after she fell. She has been having multiple falls at home, complained of difficulty walking and complained of bilateral leg pain; right leg pain is worse than the left. Also complained of generalized weakness. Complains of feeling nauseous at times. This morning when she tried to get out of bed, she felt that her leg gave in and buckled and she fell. She is increasingly weak and that has been progressing for the last two weeks. The patient was admitted last almost a year ago; at that time she had UTI and she had chronic back pain and leg pain. PAST MEDICAL HISTORY: Significant for: 1. Hypothyroidism. 2. Hypertension. 3. History of diverticulosis. 4. Chronic back pain. 5. Degenerative disk disease, status post multiple epidurals. ALLERGIES: SHE IS ALLERGIC TO: 1. AMITRIPTYLINE. 2. ASPIRIN. 3. CEPHALEXIN. 4. CIPRO. 5. GABAPENTIN. 6. OMEPRAZOLE. 7. OXYCODONE. 8. PENICILLIN. 9. PORK. 10. SHELLFISH DERIVATIVE. 11. TOMATO. 12. BEE VENOM. 13. DUST. 14. DYES. 15. GRASS. 16. MOLD. 17. NUTS. 18. POLLEN. 19. RAGWEED. 20. TAPE. 21. . MEDICATIONS AT HOME: She is on: 1. Tramadol 50 mg every 6 hours. 2. MiraLax 17 g daily. 3. Naproxen 375 twice a day. 4. Lidocaine patch. 5. Levothyroxine 50 mcg daily. 6. Hydrochlorothiazide 25 daily. 7. Famotidine. 8. Colace. 9. Vitamin D. SOCIAL HISTORY: She denies smoking, drinking or alcohol use. PHYSICAL EXAMINATION: GENERAL: She is awake, alert, oriented, communicative. VITAL SIGNS: She is afebrile, pulse 80, respirations 18, blood pressure 121/69. LUNGS: Bilateral fair airflow. No rhonchi or crackle. HEART: S1 and S2 audible. ABDOMEN: Soft and nontender. No rebound. No guarding. NEUROLOGIC: She is awake, alert, oriented, communicative. LABORATORY DATA: WBC 6, hemoglobin 12.5, hematocrit 38.3, platelet 259. PT 11.2 and INR 0.98. Chemistry; sodium 140, potassium 4.2, chloride 110, CO2 of 24, BUN 22, creatinine 1.0, blood sugar 104. Urinalysis shows moderate leukocyte, urine has 10-15 rbc's; wbc's 25-30. ASSESSMENT 1. Generalized weakness. 2. Polyuria rule out urinary tract infection. 3. Degenerative disk disease. 4. Hypertension. 5. Hypothyroidism. PLAN: We will resume her medications. Follow up her urine culture. Start her empirically on her usual medications and get ID consult since the patient has multiple allergies to choose for right antibiotic. Norberto Ambrose MD
[2018-10-01 07:04] LABS: ALBUMIN 3.4 g/dL (3.0-4.8); CALCIUM 8.8 mg/dL (8.4-10.5)
--- NOTE | 2018-10-01 08:45 | CP.PCM.CON ---
<Queta Mccall - Last Filed: 10/01/18 12:57> History of Present Illness - History of Present Illness History of Present Illness: ID consult: UTI Ms Leonidas, PMH of uterine prolapse with new passary 10 days ago, hx DVT/kidney stone/UTI's, HTN, hypothyroidism, c/o falling to R side, difficulty ambulating, nausea. At baseline, pt ambulate with a cane at home and able to get in and out of chair by herself. 2 weeks ago, she started to lean on R side, and her gait is significantly slower. 2 weeks ago, she also noticed bladder spasm and urine changed color so she visited her OBGYn who prescribed her macrobid x 7 days. Pt finishes the course of macrobid 2 days ago. Yesterday, as pt tried getting out of bed. Her R knee buckle and fell. She was not able to get in and out of chair and swerve always to the R side She sees Dr. Garcia for epidural injections. The last visit to him was about 1 year ago. ROS (+) bilateral leg pain, especially upon palpation. (+) Chills (+) nausea. (+) CHAMPION She denies fevers, night sweats, dizziness, vomiting, diarrhea, dysuria. In ED, VSS CBC nl. CMP nl. trops <0.01 x1 U/A: epithelial 6-8. WBC 25-30. (+) RBC/blood, (+) leuk est. neg nitrate CT head - chronic water matter disease. no hemorrhage Doppler LE neg DVT CXR - pending official read. no active disease PMHx uterine prolapse with pessary History of UTI's HTN hypothyroidism Hx DVT Hx of falls Hx UTIs Hx kidney stones Hx diverticulitits GERD degenerative disk disease, spondylolisthesis Chronic neck/back pain PSH pessary placement cholecystectomy Penndectomy Tonsillectomy SH Denies smoke, drink, drug ADLs independent All Penicllin, sulfa, clindamycin, cephalexin, cipro amitriptaline, asa, gabapentic, lactase, omeprazole, oxycodone, tolterodine Ragweed, pollen, nuts, mold, grass, dyes, dust, bee venom, tomatoes, trees, tape, pork, shellfish Med Ultram PRN miralax, colace lidoderm synthroid 50 hctz famotidine naproxen vitD PMD = Dr Mercado Pain = Dr Garcia OBGYN = Dr Diallo Podiatry = Dr Escoto Past Patient History - Infectious Disease Hx of Infectious Diseases: None - Tetanus Immunizations Tetanus Immunization: Unknown - Past Medical History & Family History Past Medical History?: Yes - Past Social History Smoking Status: Never Smoked - CARDIAC Hx Cardiac Disorders: Yes Hx Hypertension: Yes - PULMONARY Hx Respiratory Tract Infection: Yes - NEUROLOGICAL Hx Neurological Disorder: Yes - HEENT Hx HEENT Problems: No - RENAL Hx Chronic Kidney Disease: Yes Hx Kidney Stones: Yes - ENDOCRINE/METABOLIC Hx Hypothyroidism: Yes - HEMATOLOGICAL/ONCOLOGICAL Other/Comment: "low immune system", fibroid tumors and fibrocystic breasts - INTEGUMENTARY Hx Dermatological Problems: No - MUSCULOSKELETAL/RHEUMATOLOGICAL Hx Falls: Yes Hx Fractures: Yes - GASTROINTESTINAL Hx Diverticulitis: Yes Hx Gall Bladder Disease: Yes - GENITOURINARY/GYNECOLOGICAL Hx Genitourinary Disorders: Yes - PSYCHIATRIC Hx Anxiety: Yes - SURGICAL HISTORY Hx Surgeries: Yes Hx Appendectomy: Yes Hx Cardiac Catheterization: Yes Hx Cholecystectomy: Yes - ANESTHESIA Hx Anesthesia: Yes Meds Allergies/Adverse Reactions: Allergies Allergy/AdvReac Type Severity Reaction Status Date / Time amitriptyline Allergy RASH Verified 09/30/18 14:20 aspirin Allergy RASH Verified 09/30/18 14:20 cephalexin Allergy RASH Verified 09/30/18 14:20 ciprofloxacin Allergy RASH Verified 09/30/18 14:20 gabapentin Allergy RASH Verified 09/30/18 14:20 omeprazole Allergy RASH Verified 09/30/18 14:20 oxycodone Allergy NAUSEA Verified 09/30/18 14:20 Penicillins Allergy URTICARIA Verified 09/30/18 14:20 PORK Allergy unknown Verified 09/30/18 14:20 shellfish derived Allergy RASH Verified 09/30/18 14:20 tolterodine tartrate Allergy RASH Verified 09/30/18 14:20 [From [facility]] tomato Allergy RASH Verified 09/30/18 14:20 bee venom Allergy RASH Uncoded 09/30/18 14:20 dust Allergy unknown Uncoded 09/30/18 14:20 dyes Allergy unknown Uncoded 09/30/18 14:20 grass Allergy unknown Uncoded 09/30/18 14:20 mold Allergy unknown Uncoded 12/19/18 14:20 nuts Allergy ANGIOEDEMA Uncoded 09/30/18 14:20 pollen Allergy unknown Uncoded 09/30/18 14:20 ragweed Allergy unknown Uncoded 09/30/18 14:20 tape Allergy RASH Uncoded 09/30/18 14:20 trees Allergy unknown Uncoded 09/30/18 14:20 wool Allergy RASH Uncoded 09/30/18 14:20 - Medications Medications: Current Medications Acetaminophen (Tylenol 325mg Tab) 650 mg PO Q6H PRN PRN Reason: Fever >100.4 F Docusate Sodium (Colace) 100 mg PO DAILY [facility] Famotidine (Pepcid) 20 mg PO 1000 [facility] Hydrochlorothiazide (Hydrodiuril) 25 mg PO DAILY [facility] Levothyroxine Sodium (Synthroid) 50 mcg PO 0600 [facility] Last Admin: 10/01/18 05:31 Dose: 50 mcg Lidocaine (Lidoderm) 1 ea TD DAILY [facility] Polyethylene Glycol (Miralax) 17 gm PO DAILY [facility] Tramadol HCl (Ultram) 50 mg PO Q6 [facility] Last Admin: 10/01/18 05:35 Dose: Not Given Tramadol/Acetaminophen (Ultracet 37.5/325 Mg) 1 tab PO Q6H PRN PRN Reason: Pain, severe (8-10) Results - Vital Signs Recent Vital Signs: Last Vital Signs Temp 98 F 10/01/18 07:56 Pulse 80 10/01/18 07:56 Resp 19 10/01/18 07:56 BP 135/64 10/01/18 07:56 Pulse Ox 94 L 10/01/18 07:56 - Labs Result Diagrams: 09/30/18 15:04 10/01/18 06:00 Labs: Laboratory Results - last 24 hr 09/30/18 09/30/18 09/30/18 15:04 15:04 16:00 WBC 6.0 RBC 4.20 Hgb 12.5 Hct 38.3 MCV 91.2 MCH 29.8 MCHC 32.6 RDW 14.2 Plt Count 259 MPV 11.0 Gran % 67.7 Lymph % (Auto) 24.5 [place] % (Auto) 5.8 Eos % (Auto) 1.3 L Baso % (Auto) 0.7 Gran # 4.07 Lymph # (Auto) 1.5 [place] # (Auto) 0.4 Eos # (Auto) 0.1 Baso # (Auto) 0.04 PT 11.2 INR 0.98 APTT 29.1 Sodium 140 Potassium 4.2 Chloride 110 H Carbon Dioxide 24 Anion Gap 11 BUN 22 H Creatinine 1.0 Est GFR ( Amer) > 60 Est GFR (Non-Af Amer) 53 Random Glucose 104 Calcium 9.2 Magnesium 2.2 Total Bilirubin 0.4 AST 20 ALT 21 Alkaline Phosphatase 85 Lactate Dehydrogenase 401 Total Creatine Kinase 90 Troponin I < 0.01 Total Protein 7.2 Albumin 3.8 Globulin 3.4 Albumin/Globulin Ratio 1.1 Urine Color Urine Appearance Urine pH Ur Specific [place] Urine Protein Urine Glucose (UA) Urine Ketones Urine Blood Urine Nitrate Urine Bilirubin Urine Urobilinogen Ur Leukocyte Esterase Urine RBC Urine WBC Ur Epithelial Cells Urine Bacteria Urine Other 09/30/18 10/01/18 16:30 06:00 WBC RBC Hgb Hct MCV MCH MCHC RDW Plt Count MPV Gran % Lymph % (Auto) [place] % (Auto) Eos % (Auto) Baso % (Auto) Gran # Lymph # (Auto) [place] # (Auto) Eos # (Auto) Baso # (Auto) PT INR APTT Sodium 139 Potassium 4.4 Chloride 109 H Carbon Dioxide 25 Anion Gap 9 L BUN 19 Creatinine 1.2 Est GFR ( Amer) 52 Est GFR (Non-Af Amer) 43 Random Glucose 91 Calcium 8.8 Magnesium Total Bilirubin 0.4 AST 21 ALT 23 Alkaline Phosphatase 74 Lactate Dehydrogenase Total Creatine Kinase Troponin I Total Protein 6.7 Albumin 3.4 Globulin 3.3 Albumin/Globulin Ratio 1.0 L Urine Color Light yellow Urine Appearance Clear Urine pH 6.0 Ur Specific [place] 1.020 Urine Protein Negative Urine Glucose (UA) Negative Urine Ketones Negative Urine Blood Small H Urine Nitrate Negative Urine Bilirubin Negative Urine Urobilinogen 0.2 Ur Leukocyte Esterase Moderate H Urine RBC 10 - 15 H Urine WBC 25 - 30 H Ur Epithelial Cells 6 - 8 H Urine Bacteria Mod Urine Other Utrans Assessment & Plan - Assessment and Plan (Free Text) Plan: Possible urinary tract infection with cystitis, unlikely pyelonephritis Possible vaginal candidiasis Fall secondary to gait dysfunction due to deconditioning vs generalized weakness from infection. Need to r/o central etiology b/l leg pain history of Acute sigmoid diverticulitis history of urinary tract infection with E. coli uterine prolapse with pessary history of UTI's. Hx kidney stones HTN hypothyroidism Vaginal culture, urine gonorrhea/chlaymidia Azactam 1g q12 (day 1) pending urine cx Diflucan 50 po daily for candidiasis Neurology consult PT/OT s/r/d/w <Bon Sortod Juan S - Last Filed: 10/01/18 13:46> Meds - Medications Medications: Current Medications Acetaminophen (Tylenol 325mg Tab) 650 mg PO Q6H PRN PRN Reason: Fever >100.4 F Docusate Sodium (Colace) 100 mg PO DAILY [facility] Last Admin: 10/01/18 10:07 Dose: 100 mg Famotidine (Pepcid) 20 mg PO 1000 [facility] Last Admin: 10/01/18 10:07 Dose: 20 mg Fluconazole (Diflucan) 50 mg PO DAILY [facility]; Protocol Hydrochlorothiazide (Hydrodiuril) 25 mg PO DAILY [facility] Last Admin: 10/01/18 10:07 Dose: 25 mg Aztreonam (Azactam 1 Gm) 100 mls @ 100 mls/hr IVPB Q12 [facility]; Protocol Stop: 10/08/18 13:01 Levothyroxine Sodium (Synthroid) 50 mcg PO 0600 [facility] Last Admin: 10/01/18 05:31 Dose: 50 mcg Lidocaine (Lidoderm) 1 ea TD DAILY [facility] Last Admin: 10/01/18 10:08 Dose: 1 ea Meloxicam (Mobic) 7.5 mg PO DAILY [facility] Polyethylene Glycol (Miralax) 17 gm PO DAILY [facility] Last Admin: 10/01/18 10:08 Dose: 17 gm Tramadol HCl (Ultram) 50 mg PO Q6 [facility] Last Admin: 10/01/18 05:35 Dose: Not Given Tramadol/Acetaminophen (Ultracet 37.5/325 Mg) 1 tab PO Q6H PRN PRN Reason: Pain, severe (8-10) Results - Vital Signs Recent Vital Signs: Last Vital Signs Temp 98 F 10/01/18 07:56 Pulse 80 10/01/18 07:56 Resp 19 10/01/18 07:56 BP 135/64 10/01/18 07:56 Pulse Ox 94 L 10/01/18 07:56 - Labs Result Diagrams: 09/30/18 15:04 10/01/18 06:00 Labs: Laboratory Results - last 24 hr 09/30/18 09/30/18 09/30/18 15:04 15:04 16:00 WBC 6.0 RBC 4.20 Hgb 12.5 Hct 38.3 MCV 91.2 MCH 29.8 MCHC 32.6 RDW 14.2 Plt Count 259 MPV 11.0 Gran % 67.7 Lymph % (Auto) 24.5 [place] % (Auto) 5.8 Eos % (Auto) 1.3 L Baso % (Auto) 0.7 Gran # 4.07 Lymph # (Auto) 1.5 [place] # (Auto) 0.4 Eos # (Auto) 0.1 Baso # (Auto) 0.04 PT 11.2 INR 0.98 APTT 29.1 Sodium 140 Potassium 4.2 Chloride 110 H Carbon Dioxide 24 Anion Gap 11 BUN 22 H Creatinine 1.0 Est GFR ( Amer) > 60 Est GFR (Non-Af Amer) 53 Random Glucose 104 Calcium 9.2 Magnesium 2.2 Total Bilirubin 0.4 AST 20 ALT 21 Alkaline Phosphatase 85 Lactate Dehydrogenase 401 Total Creatine Kinase 90 Troponin I < 0.01 Total Protein 7.2 Albumin 3.8 Globulin 3.4 Albumin/Globulin Ratio 1.1 Urine Color Urine Appearance Urine pH Ur Specific [place] Urine Protein Urine Glucose (UA) Urine Ketones Urine Blood Urine Nitrate Urine Bilirubin Urine Urobilinogen Ur Leukocyte Esterase Urine RBC Urine WBC Ur Epithelial Cells Urine Bacteria Urine Other 09/30/18 10/01/18 16:30 06:00 WBC RBC Hgb Hct MCV MCH MCHC RDW Plt Count MPV Gran % Lymph % (Auto) [place] % (Auto) Eos % (Auto) Baso % (Auto) Gran # Lymph # (Auto) [place] # (Auto) Eos # (Auto) Baso # (Auto) PT INR APTT Sodium 139 Potassium 4.4 Chloride 109 H Carbon Dioxide 25 Anion Gap 9 L BUN 19 Creatinine 1.2 Est GFR ( Amer) 52 Est GFR (Non-Af Amer) 43 Random Glucose 91 Calcium 8.8 Magnesium Total Bilirubin 0.4 AST 21 ALT 23 Alkaline Phosphatase 74 Lactate Dehydrogenase Total Creatine Kinase Troponin I Total Protein 6.7 Albumin 3.4 Globulin 3.3 Albumin/Globulin Ratio 1.0 L Urine Color Light yellow Urine Appearance Clear Urine pH 6.0 Ur Specific [place] 1.020 Urine Protein Negative Urine Glucose (UA) Negative Urine Ketones Negative Urine Blood Small H Urine Nitrate Negative Urine Bilirubin Negative Urine Urobilinogen 0.2 Ur Leukocyte Esterase Moderate H Urine RBC 10 - 15 H Urine WBC 25 - 30 H Ur Epithelial Cells 6 - 8 H Urine Bacteria Mod Urine Other [facility]trans Assessment & Plan - Assessment and Plan (Free Text) Plan: Infectious diseases Attending Physician Attestation Patient seen and examined, discussed with medical doctor nuclear medicine. I have reviewed the patient's history of present illness, past medical, social, personal and family histories, pertinent physical exam findings, course so far in this hospital a dmission, pertinent laboratory and imaging results. I agree with the above findings, assessment and plan. In addition, will start Azactam for probable UTI / cystitis in this patient with pessary use. Will also start Diflucan for probable vaginal candidiasis. Follow up urine cx. Will monitor clinically.
--- NOTE | 2018-10-01 09:07 | CARD ---
APPROVED REPORT Date of service: 09/30/2018 EKG Measurement Heart [id number] <Conclusion> Normal sinus rhythm Left anterior fascicular block PRWP V 4 -6, possible lead placement NSSTW changes No change
--- NOTE | 2018-10-01 09:15 | RAD ---
Date of service: 09/30/2018 HISTORY: generalzied weakness COMPARISON: 01/31/2017 FINDINGS: LUNGS: No active pulmonary disease. PLEURA: No significant pleural effusion identified, no pneumothorax apparent. CARDIOVASCULAR: Aortic calcification Normal cardiac size. No pulmonary vascular congestion. OSSEOUS STRUCTURES: No significant abnormalities. VISUALIZED UPPER ABDOMEN: Normal. OTHER FINDINGS: None. IMPRESSION: No active disease.
[2018-10-01] MEDS: Lidocaine 5% Patch TD SCH (10:08)
[2018-10-01] MEDS: POLYETHYLENE GLYCOL 3350 17 GM/Dose PACKET PO SCH (10:08)
[2018-10-01] MEDS: Meloxicam 7.5 MG TAB PO SCH (13:52)
--- NOTE | 2018-10-01 15:10 | PN ---
DATE: SUBJECTIVE: The patient is 83 years old, seen and examined, complained of generalized weakness, complained of feeling dizzy, complained of bilateral foot, hand and leg pain, difficulty walking, and has not been walking at home for the last 2 weeks. PHYSICAL EXAMINATION: VITAL SIGNS: She is afebrile, pulse 80, respirations 19, blood pressure 135/64. LUNGS: Bilateral fair airflow. No rhonchi or crackles. HEART: S1 and S2 audible. ABDOMEN: Soft, nontender. No rebound, no guarding. NEUROLOGIC: The patient is awake, alert, oriented, communicative, had generalized weakness. ASSESSMENT: 1. Status post multiple falls. 2. Near syncope. 3. History of hypertension. 4. Degenerative disk disease. PLAN: I will request for neuro evaluation, of the head is negative, I will order for carotid Doppler. Neuro evaluation by Dr. Gomez has been requested. Get physical therapy evaluation also. We will re-evaluate the patient. Norberto Ambrose MD (Delete this signature block when dictator is a preceptor.)
--- NOTE | 2018-10-01 20:18 | CON ---
DATE: 10/01/2018 HISTORY OF PRESENT ILLNESS: This is an 83-year-old female with past medical history of hypothyroidism, hypertension, chronic back pain, degenerative disk, multiple epidural injections, and the patient came here, because she fell at home and had a difficulty walking, complaining of pain, both legs and also complaining of generalized weakness. The patient tried to get out of the bed, felt that her legs gave way, and she buckled and fell. Called to evaluate the patient, and CAT scan of the head was done, which was reported negative. PAST MEDICAL HISTORY: Hypothyroidism, hypertension, chronic back pain, degenerative disk disease. ALLERGIES: TO AMITRIPTYLINE, ASPIRIN, CIPRO, GABAPENTIN, OMEPRAZOLE, OXYCODONE, PENICILLIN, ETC. PHYSICAL EXAMINATION HEENT: Normocephalic,atraumatic. NECK: Supple. NEUROLOGIC: Awake, orientated to self. Cranial nerves II-XII are tested. Pupils reactive. EOM intact. Visual field full. No facial asymmetry. Tongue midline. Motor examination: Moves all the extremities spontaneously, more upper, more than the lower, but deep tendon reflexes are 1+. Both plantars are downgoing. Sensory appears intact. Cerebellar gait deferred. IMPRESSION AND PLAN: Low back pain, radiating to both the legs and multiple medical problems; hypertension, hypothyroidism. We will do the CAT scan of the lumbosacral spine and physical therapy. Wyatt Gomez MD
[2018-10-02] MEDS: Levothyroxine 50 MCG TAB PO SCH (06:17)
--- NOTE | 2018-10-02 07:32 | CP.PCM.PN ---
<Queta Mccall - Last Filed: 10/02/18 16:19> Subjective - Date & Time of Evaluation Date of Evaluation: 10/02/18 Time of Evaluation: 07:29 - Subjective Subjective: ID Progress Note PGY-[address] Sorto Pt states that her energy is low today. (+) headache, mild, no vision changes or nausea. (+) back and b/l leg pain, unchanged. Denies f/c, CP, SOB, n/v/d/c, dysuria Objective - Vital Signs/Intake and Output Vital Signs (last 24 hours): Temp Pulse Resp BP Pulse Ox 98.2 F 75 18 149/85 93 L 10/01/18 17:24 10/01/18 17:24 10/01/18 17:24 10/01/18 17:24 10/01/18 17:24 Intake and Output: 10/02/18 10/02/18 06:59 18:59 Intake Total 100 Balance 100 - Medications Medications: Current Medications Acetaminophen (Tylenol 325mg Tab) 650 mg PO Q6H PRN PRN Reason: Fever >100.4 F Docusate Sodium (Colace) 100 mg PO DAILY [facility] Last Admin: 10/01/18 10:07 Dose: 100 mg Famotidine (Pepcid) 20 mg PO 1000 [facility] Last Admin: 10/01/18 10:07 Dose: 20 mg Fluconazole (Diflucan) 50 mg PO DAILY [facility]; Protocol Last Admin: 10/01/18 13:50 Dose: 50 mg Hydrochlorothiazide (Hydrodiuril) 25 mg PO DAILY [facility] Last Admin: 10/01/18 10:07 Dose: 25 mg Aztreonam (Azactam 1 Gm) 100 mls @ 100 mls/hr IVPB Q12 [facility]; Protocol Stop: 10/08/18 13:01 Last Admin: 10/01/18 22:28 Dose: 100 mls/hr Levothyroxine Sodium (Synthroid) 50 mcg PO 0600 [facility] Last Admin: 10/02/18 06:17 Dose: 50 mcg Lidocaine (Lidoderm) 1 ea TD DAILY [facility] Last Admin: 10/01/18 10:08 Dose: 1 ea Meloxicam (Mobic) 7.5 mg PO DAILY [facility] Last Admin: 10/01/18 13:52 Dose: 7.5 mg Ondansetron HCl (Zofran Inj) 4 mg IVP Q6H PRN PRN Reason: Nausea/Vomiting Polyethylene Glycol (Miralax) 17 gm PO DAILY [facility] Last Admin: 10/01/18 10:08 Dose: 17 gm Tramadol HCl (Ultram) 50 mg PO Q6 [facility] Last Admin: 10/02/18 06:17 Dose: 50 mg Tramadol/Acetaminophen (Ultracet 37.5/325 Mg) 1 tab PO Q6H PRN PRN Reason: Pain, severe (8-10) - Labs Labs: 09/30/18 15:04 10/01/18 06:00 PT 11.2 SECONDS (9.4-12.5) 09/30/18 15:04 INR 0.98 09/30/18 15:04 APTT 29.1 Seconds (25.1-36.5) 09/30/18 15:04 - Constitutional Appears: No Acute Distress - Head Exam Head Exam: ATRAUMATIC, NORMAL INSPECTION, NORMOCEPHALIC - Eye Exam Eye Exam: EOMI, Normal appearance, PERRL. absent: Scleral icterus Pupil Exam: NORMAL ACCOMODATION - ENT Exam ENT Exam: Mucous Membranes Moist - Neck Exam Additional comments: supple - Respiratory Exam Respiratory Exam: Clear to Ausculation Bilateral, NORMAL BREATHING PATTERN. absent: Rales, Rhonchi, Wheezes - Cardiovascular Exam Cardiovascular Exam: REGULAR RHYTHM, +S1, +S2. absent: Murmur - GI/Abdominal Exam GI & Abdominal Exam: Soft. absent: Guarding, Rigid, Tenderness, Mass - Exam Additional comments: No visible vaginal discharge at labile area - Back Exam Back Exam: absent: CVA tenderness (L), CVA tenderness (R) - Neurological Exam Neurological Exam: Alert, Awake, CN II-XII Intact, Oriented x3 Neuro motor strength exam: Left Upper Extremity: 4, Right Upper Extremity: 4, Left Lower Extremity: 4, Right Lower Extremity: 4 Additional comments: when squeeze shoulder and hip, pt states 8/10 pain. When non-touch, less pain - Psychiatric Exam Psychiatric exam: Normal Affect, Normal Mood - Skin Skin Exam: Normal Color, Warm Assessment and Plan - Assessment and Plan (Free Text) Plan: Ms Lauren, H of uterine prolapse with new passary 10 days ago, hx DVT/kidney stone/UTI's, HTN, hypothyroidism, c/o falling to R side, difficulty ambulating, nausea, back pain radiating to legs. Possible urinary tract infection with cystitis with pessary, unlikely pyelonephritis Vaginal candidiasis - improves with diflucan ? Polymyalgia rheumatica Fall secondary to gait dysfunction due to back pain vs radiculopathy vs deconditioning vs generalized weakness from infection. history of Acute sigmoid diverticulitis history of urinary tract infection with E. coli uterine prolapse with pessary (placed 09/21/18) history of UTI's. Hx kidney stones. Recent UTI finished macrobid PO HTN hypothyroidism Allergy to Penicllin, clindamycin, cephalexin, cipro Plan: Follow on urine culture, gonorrhea/chlaymidia Azactam 1g q12 (day 2) pending urine cx Diflucan 50 po daily for vaginal candidiasis Neurology consult: Order CT lumbarsacral spine PT/OT Culture: UCx: pending VCx: gram positive cocci in chains G/C: pending s/r/d/w Dr Sorto <Jorje Sorto S - Last Filed: 10/02/18 22:36> Objective - Vital Signs/Intake and Output Vital Signs (last 24 hours): Temp Pulse Resp BP Pulse Ox 97.6 F 73 18 146/79 94 L 10/02/18 18:00 10/02/18 18:00 10/02/18 18:00 10/02/18 18:00 10/02/18 18:00 - Medications Medications: Current Medications Acetaminophen (Tylenol 325mg Tab) 650 mg PO Q6H PRN PRN Reason: Fever >100.4 F Docusate Sodium (Colace) 100 mg PO DAILY [facility] Last Admin: 10/02/18 09:34 Dose: 100 mg Famotidine (Pepcid) 20 mg PO 1000 [facility] Last Admin: 10/02/18 09:36 Dose: 20 mg Fluconazole (Diflucan) 50 mg PO DAILY [facility]; Protocol Last Admin: 10/02/18 09:34 Dose: 50 mg Hydrochlorothiazide (Hydrodiuril) 25 mg PO DAILY [facility] Last Admin: 10/02/18 09:34 Dose: 25 mg Aztreonam (Azactam 1 Gm) 100 mls @ 100 mls/hr IVPB Q12 [facility]; Protocol Stop: 10/08/18 13:01 Last Admin: 10/02/18 21:24 Dose: 100 mls/hr Methylprednisolone 500 mg/ (Sodium Chloride) 100 mls @ 200 mls/hr IVPB 1800 [facility] Stop: 10/04/18 18:29 Last Admin: 10/02/18 17:49 Dose: 200 mls/hr Levothyroxine Sodium (Synthroid) 50 mcg PO 0600 [facility] Last Admin: 10/02/18 06:17 Dose: 50 mcg Lidocaine (Lidoderm) 1 ea TD DAILY [facility] Last Admin: 10/02/18 09:35 Dose: 1 ea Meloxicam (Mobic) 7.5 mg PO DAILY [facility] Last Admin: 10/02/18 09:35 Dose: 7.5 mg Ondansetron HCl (Zofran Inj) 4 mg IVP Q6H PRN PRN Reason: Nausea/Vomiting Last Admin: 10/02/18 15:42 Dose: 4 mg Polyethylene Glycol (Miralax) 17 gm PO DAILY [facility] Last Admin: 10/02/18 09:35 Dose: 17 gm Tramadol HCl (Ultram) 50 mg PO Q6 [facility] Last Admin: 10/02/18 17:49 Dose: 50 mg Tramadol/Acetaminophen (Ultracet 37.5/325 Mg) 1 tab PO Q6H PRN PRN Reason: Pain, severe (8-10) - Labs Labs: 09/30/18 15:04 10/01/18 06:00 PT 11.2 SECONDS (9.4-12.5) 09/30/18 15:04 INR 0.98 09/30/18 15:04 APTT 29.1 Seconds (25.1-36.5) 09/30/18 15:04 Assessment and Plan - Assessment and Plan (Free Text) Plan: Infectious diseases Attending Physician Attestation Patient seen and examined, discussed with medical collector. I have reviewed the patient's history of present illness, past medical, social, personal and family histories, pertinent physical exam findings, course so far in this hospital admission, pertinent laboratory and imaging results. I agree with the above findings, assessment and plan. In addition, continue azactam pending urine cx for probable UTI. Continue Diflucan for vaginal candidiasis.
--- NOTE | 2018-10-02 08:50 | US ---
PROCEDURE: Bilateral carotid artery duplex ultrasound HISTORY: Carotid stenosis PHYSICIAN(S): Dae Louie MD. TECHNIQUE: Duplex sonography and color-flow Doppler were used to evaluate the carotid bifurcations and limited segments of the vertebral arteries bilaterally. FINDINGS: There is mild smooth heterogeneous plaque noted at the carotid bifurcations bilaterally. The peak systolic velocity in the proximal right internal carotid artery is 80 cm/sec. This corresponds to a 20 to 39% proximal right ICA stenosis. Normal systolic velocities are noted in the proximal right external carotid artery. There is antegrade flow in the right vertebral artery. The peak systolic velocity in the proximal left internal carotid artery is 78 cm/sec. This corresponds to a 20 to 39% proximal left ICA stenosis. Normal systolic velocities are noted in the proximal left external carotid artery. There is antegrade flow in the dominant left vertebral artery. IMPRESSION: 1. Bilateral 20-39% proximal ICA stenoses. 2. Antegrade flow in both vertebral arteries.
[2018-10-02] MEDS: Aztreonam 1 Gm in NS 100mL 100 ML IVPB SCH ×2 (09:33→21:24)
[2018-10-02] MEDS: Meloxicam 7.5 MG TAB PO SCH (09:35)
[2018-10-02] MEDS: Lidocaine 5% Patch TD SCH (09:35)
[2018-10-02] MEDS: POLYETHYLENE GLYCOL 3350 17 GM/Dose PACKET PO SCH (09:35)
--- NOTE | 2018-10-02 11:56 | CT ---
Date of service: 10/02/2018 PROCEDURE: CT Lumbar Spine without contrast HISTORY: lbp COMPARISON: Comparison is made with the previous CT of the abdomen and pelvis dated 09/29/2017 TECHNIQUE: Axial computed tomography images were obtained of the lumbar spine without the use of intravenous contrast. Coronal and sagittal reformatted images were created and reviewed. Radiation dose: Total exam DLP = 1345.44 mGy-cm. This CT exam was performed using one or more of the following dose reduction techniques: Automated exposure control, adjustment of the mA and/or kV according to patient size, and/or use of iterative reconstruction technique. FINDINGS: VERTEBRAE: Unremarkable. No fracture. There is a 5 millimeter anterior spondylolisthesis of L5 relative to S1. DISCS/SPINAL CANAL/NEURAL FORAMINA: L1-2: There is a small osteophyte bulging disc associated with mild posterior ligament hypertrophy without evidence of significant spinal or neural foraminal narrowing.Moderate disc and endplate degenerative changes are noted. L2-3: There is a small posterior osteophyte bulging disc associated with posterior ligament and facet joint hypertrophy without evidence of significant spinal or neural foraminal narrowing. Moderate disc and endplate degenerative changes are noted. L3-4: Small posterior osteophyte bulging disc associated with posterior ligament and facet joint hypertrophy which resulting in mild spinal and neural foraminal narrowing right more than left.Moderate disc and endplate degenerative changes are noted. L4-5: Small posterior disc herniation associated with posterior ligament and facet joint hypertrophy which resulting in mild spinal and neural foraminal narrowing.Moderate disc and endplate degenerative changes are noted. L5-S1: There is small to moderate size posterior disc bulging associated with posterior ligament and facet joint hypertrophy which resulting in mild spinal and neural foraminal narrowing. PARASPINAL SOFT TISSUES: Atherosclerotic calcification noted in the abdominal aorta. The urinary bladder is mildly distended. OTHER FINDINGS: None. IMPRESSION: Moderate disc and endplate degenerative changes. Multilevel small posterior osteophyte bulging disc associated with mild spinal and neural foraminal narrowing. Mild grade 1 approximately 5 millimeter anterior spondylolisthesis of L5 relative to S1.
--- NOTE | 2018-10-02 14:24 | PN ---
DATE: SUBJECTIVE: The patient is 83 years old, seen and examined, complained of feeling extremely weak, tire, no energy to get out of bed. PHYSICAL EXAMINATION: VITAL SIGNS: She is afebrile, pulse 74, respirations 20, blood pressure 145/64. LUNGS: Bilateral fair airflow. No rhonchi or crackles. HEART: S1 and S2 audible. ABDOMEN: Soft, nontender. No rebound, no guarding. NEUROLOGIC: The patient is awake, alert, oriented, able to communicate, had generalized weakness. Bilateral knee osteoarthritis. LABORATORY EXAM: WBC 6.0, hemoglobin 12, hematocrit 38, platelets 259. PT 11.2, INR 0.98. Her urine cultures are pending, cultures are pending. ASSESSMENT: 1. Generalized weakness. 2. Status post near syncope. 3. Spinal stenosis. 4. Degenerative disc disease. 5. Hypothyroidism. 6. CT scan showing moderate disc and endplate degenerative changes, multilevel small posterior osteophyte bulging disc associated with mild spinal and neural foraminal narrowing. PLAN: We will continue the patient on current medications and request for CCU evaluation and if accepted, she can be transferred to CCU for evaluation for physical therapy and continuation of her antibiotics. Norberto Ambrose MD (Delete this signature block when dictator is a preceptor.)
--- NOTE | 2018-10-02 15:09 | CP.PCM.PCO ---
Physician Communication Note - Physician Communication Note Physician Communication Note: pt will need physical therpay for lumbosacral pain. thx. f/u as putpt.
--- NOTE | 2018-10-02 16:45 | CP.PCM.PCO ---
Physician Communication Note - Physician Communication Note Physician Communication Note: PGY-[address] Gomez. Possible polymyalgia rheumatica. Assessment/Plan - Assessment and Plan (Free Text) Assessment: Possible polymyalgia rheumatica Plan: Per Dr Gomez, solumedrol 500mg daily x 3 days, then followed by medrol dose papito. Outpatient follow up with Dr Gomez
[2018-10-02] MEDS: methylPREDNISolone 500 MG in Sodium Chloride 0.9% 100 ML IVPB SCH (17:49)
[2018-10-03] MEDS ORDERED: POLYETHYLENE GLYCOL 3350 17 GM/Dose PACKET PO ONE (05:16)
[2018-10-03] MEDS: Levothyroxine 50 MCG TAB PO SCH (05:22)
[2018-10-03] MEDS: Meloxicam 7.5 MG TAB PO SCH (10:30)
[2018-10-03] MEDS: Aztreonam 1 Gm in NS 100mL 100 ML IVPB SCH ×2 (10:31→21:43)
[2018-10-03] MEDS: POLYETHYLENE GLYCOL 3350 17 GM/Dose PACKET PO SCH (10:31)
[2018-10-03] MEDS: Lidocaine 5% Patch TD SCH (10:33)
--- NOTE | 2018-10-03 15:08 | PN ---
DATE: 10/03/2018 SUBJECTIVE: The patient is in bed, in no acute distress, nontoxic. She was seen earlier today in 370, bed 2. PHYSICAL EXAMINATION: VITAL SIGNS: Temperature is 98, blood pressure is 150/80 and respiratory rate 20. HEENT: Unremarkable. NECK: Supple. LUNGS: Decreased breath sounds. HEART: Normal S1 and S2. ABDOMEN: Soft. LABORATORY DATA: Reveals white count is 6. Chemistries are noted. Urinalysis is noted. Microbiology is reviewed with vaginal cultures no growth. Urine cultures 10 to 50,000 colonies. Review of orders reveals the patient to be on aztreonam. The patient is also on Solu-Medrol. ASSESSMENT AND PLAN: An 83-year-old female seen earlier today in 370, bed 2 with possible urinary tract infection and cystitis unlikely to be pyelonephritis in a patient who has polymyalgia rheumatica who is ALLERGIC TO MULTIPLE ANTIBIOTICS, day #3 of Azactam and p.o. Diflucan. The patient had a CAT scan of the lumbar spine which showed disk degenerative changes. We will follow closely with you. Anjum Simon MD
--- NOTE | 2018-10-03 15:56 | PN ---
DATE: 10/03/2018 SUBJECTIVE: The patient is 83-year-old, seen and examined. She seems to be worried. She is getting generally weak, arms and legs are getting weak and was evaluated by neurologist and recommended prolonged physical therapy. PHYSICAL EXAMINATION: GENERAL: She is awake, alert and oriented. VITAL SIGNS: She is afebrile, pulse 90, respirations 20, blood pressure 157/87. LUNGS: Bilateral fair airflow. No rhonchi or crackles. HEART: S1 and S2 audible. ABDOMEN: Soft, nontender. No rebound, no guarding. NEUROLOGIC: The patient is awake, alert, oriented, able to communicate. Bilateral legs she has generalized weakness. Limited range of motion because of weakness on both lower extremities. ASSESSMENT: 1. Generalized weakness. 2. Status post multiple fall. 3. Bilateral knee osteoarthritis. 4. Degenerative disc disease. 5. Vaginitis. 6. Neurology workup so far is unremarkable. PLAN: We will reach out the [employer] Floors Installer. TCU evaluation was requested, but the patient needs longer rehab. We will try for possible transfer to [place] on Friday and in the meantime we will continue her on current medical . Norberto Ambrose MD
[2018-10-03] MEDS: methylPREDNISolone 500 MG in Sodium Chloride 0.9% 100 ML IVPB SCH (18:14)
[2018-10-04] MEDS: Levothyroxine 50 MCG TAB PO SCH (05:47)
[2018-10-04] MEDS: Meloxicam 7.5 MG TAB PO SCH (09:08)
[2018-10-04] MEDS: POLYETHYLENE GLYCOL 3350 17 GM/Dose PACKET PO SCH (09:08)
[2018-10-04] MEDS: Lidocaine 5% Patch TD SCH (09:08)
[2018-10-04] MEDS: Aztreonam 1 Gm in NS 100mL 100 ML IVPB SCH ×2 (09:09→22:07)
--- NOTE | 2018-10-04 16:49 | PN ---
DATE: 10/04/2018 SUBJECTIVE: The patient is in bed in no acute distress, nontoxic. PHYSICAL EXAMINATION: VITAL SIGNS: Temperature is 97, blood pressure is 143/70, respiratory rate of 18. HEENT: Unremarkable. NECK: Supple. LUNGS: Have decreased breath sounds. HEART: Normal S1 and S2. ABDOMEN: Soft. LABORATORY EXAMINATION: Reveals a white count of 6, hemoglobin is 12, platelets are noted. Chemistries are reviewed. Urinalysis is noted. Microbiology reveals the vaginal cultures with no growth. The urine culture has low count with multiple species. Review of orders reveals the patient to be on aztreonam and Sinequan.. ASSESSMENT AND PLAN: This is a an 83-year-old female with urinary tract infection, cystitis and pyelonephritis in a patient with polymyalgia rheumatica with allergies to multiple antibiotics, currently on day #4 on the Azactam. The patient is also on Solu-Medrol. We will follow with you. Anjum Simon MD
[2018-10-04] MEDS: methylPREDNISolone 500 MG in Sodium Chloride 0.9% 100 ML IVPB SCH (18:20)
--- NOTE | 2018-10-04 19:40 | PN ---
DATE: 10/04/2018 SUBJECTIVE: The patient has no complaints of any chest pain. No shortness of breath. No headaches or dizziness. PHYSICAL EXAMINATION VITAL SIGNS: Temperature is 97.8, pulse of 79, blood pressure 143/70 and respirations 18. GENERAL: The patient is lying in bed, flat, comfortable. HEENT: No oral lesion. Anicteric sclerae. Moist mucosa. NECK: No JVD, adenopathy, or thyromegaly. CARDIOVASCULAR: S1 and S2, regular. No murmurs, rubs, or gallops. LUNGS: Clear to auscultation bilaterally. No wheeze, rales, or rhonchi. ABDOMEN: Bowel sounds are positive, soft, nontender and nondistended. EXTREMITIES: No cyanosis, clubbing or edema. LABORATORY DATA: White count of 6, hemoglobin 12.5. Creatinine is 1.2. This is blood work from [address] shows moderate disk and endplate degeneration. There is mild grade 1 approximately 5 mm anterior spondylolisthesis at L5 S1. ASSESSMENT: 1. Back pain secondary to degenerative joint disease. 2. Falls. 3. CIPRO ALLERGY. 4. Cystitis. 5. Constipation. 6. Hypothyroidism. PLAN: The patient is currently comfortable. She is currently on Azactam for antibiotics. SHE HAS MULTIPLE ALLERGIES. She is on Colace for constipation as well as MiraLax. She is on hydrochlorothiazide for hypertension. She is on Synthroid for hypothyroidism. Her back pain is controlled with Ultram and Tylenol. She is on a heart healthy diet. Joshua White MD
[2018-10-05] MEDS: Levothyroxine 50 MCG TAB PO SCH (05:42)
[2018-10-05] MEDS: Aztreonam 1 Gm in NS 100mL 100 ML IVPB SCH ×2 (09:59→22:03)
[2018-10-05] MEDS: Lidocaine 5% Patch TD SCH (10:00)
[2018-10-05] MEDS: Meloxicam 7.5 MG TAB PO SCH (10:01)
[2018-10-05] MEDS: POLYETHYLENE GLYCOL 3350 17 GM/Dose PACKET PO SCH (10:01)
--- NOTE | 2018-10-05 15:02 | PN ---
DATE: 10/05/2018 SUBJECTIVE: The patient is 83-year-old, seen and examined, sitting in a chair comfortable, evaluation. PHYSICAL EXAMINATION: VITAL SIGNS: She is afebrile, pulse 69, respirations 17, and blood pressure 157/73. LUNGS: Bilateral fair airflow, no rhonchi or crackle. HEART: S1 and S2 audible. ABDOMEN: Soft and nontender. No rebound. No guarding. NEUROLOGIC: She is awake and alert, able to communicate. She definitely had more weakness on the right upper and the lower extremity today, right is 1/5 and left is 4/5 as motor tone crooks . LABORATORY DATA: Urine cultures shows contamination. ASSESSMENT AND PLAN: 1. Status post fall. 2. Generalized weakness. Now, she has right upper and lower extremity weakness, rule out acute cerebrovascular accident. 3. Hypertension. 4. Right-sided weakness, rule out acute cerebrovascular accident. 5. Degenerative disc disease. 6. History of hypertension. 7. Deconditioning and difficulty walking. However, CT scan of the head done on 09/30/2018, negative for acute stroke and her carotid Doppler was unremarkable. PLAN: I will order for MRI of the brain. I will start her on Plavix and she is ALLERGIC TO PENICILLIN. Continue her Azactam. I will continue physical therapy. We will follow up . Norberto Ambrose MD
--- NOTE | 2018-10-05 17:17 | PN ---
DATE: 10/05/2018 SUBJECTIVE: The patient is in bed, in no acute distress. She is complaining of more weakness on the right side. PHYSICAL EXAMINATION: VITAL SIGNS: Temperature is 97, blood pressure is 150/70, respiratory rate of 18. HEENT: Examination of HEENT is unremarkable. NECK: Supple. LUNGS: Have decreased breath sounds. HEART: Normal S1 and S2. ABDOMEN: Soft, nontender. LABORATORY DATA: Laboratory examination reveals the patient's white count is 6 and the chemistries are noted. ASSESSMENT AND PLAN: This is an 83-year-old female with urinary tract infection, cystitis and pyelonephritis and allergies currently on Azactam day #5. We will follow closely with you. The patient does have weakness recommended MRI of the brain, which has been ordered by Dr. Ambrose, rule out new right-sided weakness cause. Anjum Simon MD (Delete this signature block when dictator is a preceptor.)
--- NOTE | 2018-10-05 18:40 | MRI ---
Date of service: 10/05/2018 PROCEDURE: MRI BRAIN WITHOUT CONTRAST HISTORY: weakness COMPARISON: None available. TECHNIQUE: Multiplanar, multisequence MR images of the brain were obtained without intravenous contrast enhancement. FINDINGS: HEMORRHAGE: None DWI: An acute subacute infarct is detected at the mid to posterior sub distribution of the left anterior cerebral artery. BRAIN PARENCHYMA: There is only borderline mass effect at the affected ischemic territory at the left frontal vertex medially. No midline shift. Diffuse cerebral atrophy chronic microangiopathy are reiterated. Limited chronic microangiopathy affects the huber with midline brain anatomy otherwise unremarkable. VENTRICLES: Unremarkable. No hydrocephalus. CRANIUM: Unremarkable. ORBITS: Grossly unremarkable. PARANASAL SINUSES/MASTOIDS: Clear VASCULAR SYSTEM: Skull base flow voids intact. OTHER FINDINGS: None. IMPRESSION: Acute subacute infarct at a sub distribution left PAIGE without significant mass effect at this time. Age-appropriate age related neuro degenerative changes are appreciated otherwise.
[2018-10-06] MEDS: Levothyroxine 50 MCG TAB PO SCH (06:32)
[2018-10-06] MEDS: Aztreonam 1 Gm in NS 100mL 100 ML IVPB SCH ×2 (10:10→21:38)
[2018-10-06] MEDS: Meloxicam 7.5 MG TAB PO SCH (10:11)
[2018-10-06] MEDS: Lidocaine 5% Patch TD SCH (10:11)
[2018-10-06] MEDS: POLYETHYLENE GLYCOL 3350 17 GM/Dose PACKET PO SCH ×2 (10:11→18:00)
[2018-10-06 13:40] LABS: HDL CHOLESTEROL 69 mg/dL (29-60)
[2018-10-06 13:51] LABS: LDL CHOLESTEROL 140 mg/dL (0-129)
--- NOTE | 2018-10-06 14:06 | PN ---
DATE: 10/06/2018 SUBJECTIVE: The patient is in bed, in no acute distress, nontoxic. No fevers. PHYSICAL EXAMINATION: VITAL SIGNS: Temperature is 97, blood pressure is 120/70 and respiratory rate 18. HEENT: Unremarkable. NECK: Supple. LUNGS: Decreased breath sounds. HEART: Normal, S1 and S2. ABDOMEN: Soft. LABORATORY DATA: Reveals a white count of 6 and hemoglobin of 12. Chemistries are noted. Urinalysis is noted. Serology is reviewed. The patient had an MRI, has revealed an acute subacute infarct and distribution of the left PAIGE. The patient is currently off of antibiotics and except for intravenous aztreonam rather. ASSESSMENT AND PLAN: An 83-year-old female with urinary tract infection, cystitis, pyelonephritis and now she is currently on day #6 of aztreonam for urine cystitis and questionable pyelonephritis with complete 10-14 days, today is day #6. Anjum Simon MD
--- NOTE | 2018-10-06 18:25 | PN ---
DATE: 10/06/2018 SUBJECTIVE: The patient is 83-year-old, seen and examined, explained to her MRI result, seems to be a little upset. PHYSICAL EXAMINATION VITAL SIGNS: She is afebrile, pulse 64, respirations 20, blood pressure 120/71. LUNGS: Bilateral fair airflow. No rhonchi or crackle. HEART: S1, S2 audible. ABDOMEN: Soft, nontender. No rebound. No guarding. NEUROLOGICAL: The patient is awake, alert, oriented, communicative. EXTREMITIES: She has right upper and lower extremity weakness. LABORATORY EXAM: Cholesterol is 256, LDL is 140. She had MRI of the brain done that shows acute infarct at the distribution of left PAIGE without significant mass effect. ASSESSMENT: 1. Left anterior cerebral artery distribution, acute cerebrovascular accident with right hemiparesis. 2. Hypertension. 3. Hyperlipidemia. 4. Degenerative disk disease. 5. Polyuria. 6. Vaginitis. PLAN: We will continue the patient on current medication. She has been started on Plavix since SHE IS ALLERGIC TO PENICILLIN. SHE IS NOT SURE WHAT HAPPENS WITH THE PENICILLIN, but we will hold off aspirin and continue on Plavix. We will discuss with the Computer Systems Support Specialist to make arrangement for acute rehab. As soon as arrangement is made, the patient will be transferred to acute rehab. Norberto Ambrose MD
[2018-10-06] MEDS: TraMADol/Apap 37.5/325 mg Tab PO PRN (20:15)
[2018-10-06] MEDS ORDERED: Lidocaine 5% Patch TD STA (22:27)
[2018-10-07] MEDS: Levothyroxine 50 MCG TAB PO SCH (05:58)
[2018-10-07] MEDS: TraMADol/Apap 37.5/325 mg Tab PO PRN (08:08)
--- NOTE | 2018-10-07 08:10 | CP.PCM.PN ---
<StefanyQueta - Last Filed: 10/07/18 12:15> Subjective - Date & Time of Evaluation Date of Evaluation: 10/07/18 Time of Evaluation: 08:10 - Subjective Subjective: ID PRogress note PGY-[address] Sorto Pt states that her pain is still there and needed more pain med this morning. She is motivated to rehab to maintain functionality. (+) Constipation x 5 days per pt. denies fever, chills, CP, SOB, n/v/d, dysuria Objective - Vital Signs/Intake and Output Vital Signs (last 24 hours): Temp Pulse Resp BP Pulse Ox 97.6 F 69 18 126/70 92 L 10/06/18 16:44 10/07/18 06:00 10/06/18 16:44 10/06/18 16:44 10/06/18 16:44 Intake and Output: 10/07/18 10/07/18 06:59 18:59 Intake Total 320 Balance 320 - Medications Medications: Current Medications Acetaminophen (Tylenol 325mg Tab) 650 mg PO Q6H PRN PRN Reason: Fever >100.4 F Last Admin: 10/03/18 10:27 Dose: 650 mg Atorvastatin Calcium (Lipitor) 40 mg PO DIN [facility] Last Admin: 10/06/18 17:50 Dose: 40 mg Clopidogrel Bisulfate (Plavix) 75 mg PO DAILY [facility] Last Admin: 10/06/18 10:12 Dose: 75 mg Docusate Sodium (Colace) 100 mg PO BID [facility] Last Admin: 10/06/18 18:00 Dose: 100 mg Famotidine (Pepcid) 20 mg PO 1000 [facility] Last Admin: 10/06/18 10:12 Dose: 20 mg Hydrochlorothiazide (Hydrodiuril) 25 mg PO DAILY [facility] Last Admin: 10/06/18 10:11 Dose: 25 mg Aztreonam (Azactam 1 Gm) 100 mls @ 100 mls/hr IVPB Q12 [facility]; Protocol Stop: 10/08/18 13:01 Last Admin: 10/06/18 21:38 Dose: 100 mls/hr Levothyroxine Sodium (Synthroid) 50 mcg PO 0600 [facility] Last Admin: 10/07/18 05:58 Dose: 50 mcg Lidocaine (Lidoderm) 1 ea TD DAILY [facility] Last Admin: 12/25/18 10:11 Dose: 1 ea Meloxicam (Mobic) 7.5 mg PO DAILY [facility] Last Admin: 10/06/18 10:11 Dose: 7.5 mg Ondansetron HCl (Zofran Inj) 4 mg IVP Q6H PRN PRN Reason: Nausea/Vomiting Last Admin: 10/02/18 15:42 Dose: 4 mg Polyethylene Glycol (Miralax) 17 gm PO BID [facility] Last Admin: 10/06/18 18:00 Dose: 17 gm Tramadol HCl (Ultram) 50 mg PO Q6 [facility] Last Admin: 10/07/18 05:58 Dose: 50 mg Tramadol/Acetaminophen (Ultracet 37.5/325 Mg) 1 tab PO Q6H PRN PRN Reason: Pain, severe (8-10) Last Admin: 10/06/18 20:15 Dose: 1 tab - Labs Labs: 09/30/18 15:04 10/01/18 06:00 PT 11.2 SECONDS (9.4-12.5) 09/30/18 15:04 INR 0.98 09/30/18 15:04 APTT 29.1 Seconds (25.1-36.5) 09/30/18 15:04 - Constitutional Appears: No Acute Distress - Head Exam Head Exam: ATRAUMATIC, NORMAL INSPECTION, NORMOCEPHALIC - Eye Exam Eye Exam: EOMI, Normal appearance, PERRL. absent: Scleral icterus - ENT Exam ENT Exam: Mucous Membranes Moist - Neck Exam Additional comments: supple - Respiratory Exam Respiratory Exam: Decreased Breath Sounds (b/l lung bases), NORMAL BREATHING PATTERN. absent: Rales, Rhonchi, Wheezes - Cardiovascular Exam Cardiovascular Exam: REGULAR RHYTHM, +S1, +S2. absent: Irregular Rhythm, Murmur - GI/Abdominal Exam GI & Abdominal Exam: Soft, Normal Bowel Sounds. absent: Guarding, Rigid, Tenderness Additional comments: No suprapubic tenderness - Extremities Exam Extremities Exam: absent: Calf Tenderness, Pedal Edema - Back Exam Back Exam: absent: CVA tenderness (L), CVA tenderness (R) - Neurological Exam Neurological Exam: Alert, Awake, Oriented x3 - Psychiatric Exam Psychiatric exam: Normal Affect, Normal Mood - Skin Skin Exam: Dry, Warm Assessment and Plan - Assessment and Plan (Free Text) Plan: Ms Lauren, 83F, with PMH of uterine prolapse with new passary in early September, hx DVT/kidney stone/UTI's, HTN, hypothyroidism, c/o falling to R side, difficulty ambulating, nausea, back pain radiating to legs. Complicated urinary tract infection with pessary, cystitis, possible pyelonephritis Vaginal candidiasis - resolved. Finished diflucan x 3d Acute vs subacute ischemic stroke, now on plavix uterine prolapse with pessary (placed 09/21/18) Chronic pain with opioid-induced constipation, with constipation x 5 days hypothyroidism Allergy to Penicllin, clindamycin, cephalexin, cipro, aspirin Plan - For complicated UTI, continue azactam 1q12 (day _7_) for a total of 10-14 days - For possible stroke, primary team added plavix because pt is allergic to aspirin. Consider adding statin. out of bed to chair. PT/OT. Need Rehab - pain and opioid-induced constipation management per primary Culture: - UCx: Contaminated - VCx: Normal vaginal pamela - G/C: neg - MRI head (10/05): acute vs subacute L PAIGE infarct. No mass effect - CT head (09/30): No acute hemorrhage - Carotid U/S: 20-39% stenosed b/1 s/r/d/w Dr Sorto <Jorje Sorto - Last Filed: 10/07/18 15:21> Objective - Vital Signs/Intake and Output Vital Signs (last 24 hours): Temp Pulse Resp BP Pulse Ox 97.5 F L 67 20 132/78 97 10/07/18 08:34 10/07/18 08:34 10/07/18 08:34 10/07/18 08:34 10/07/18 08:34 Intake and Output: 10/07/18 10/07/18 06:59 18:59 Intake Total 320 Balance 320 - Medications Medications: Current Medications Acetaminophen (Tylenol 325mg Tab) 650 mg PO Q6H PRN PRN Reason: Fever >100.4 F Last Admin: 10/03/18 10:27 Dose: 650 mg Atorvastatin Calcium (Lipitor) 40 mg PO DIN [facility] Last Admin: 10/06/18 17:50 Dose: 40 mg Clopidogrel Bisulfate (Plavix) 75 mg PO DAILY [facility] Last Admin: 10/07/18 10:23 Dose: 75 mg Docusate Sodium (Colace) 100 mg PO BID [facility] Last Admin: 10/07/18 10:22 Dose: 100 mg Famotidine (Pepcid) 20 mg PO 1000 [facility] Last Admin: 10/07/18 10:23 Dose: 20 mg Hydrochlorothiazide (Hydrodiuril) 25 mg PO DAILY [facility] Last Admin: 10/07/18 10:22 Dose: 25 mg Aztreonam (Azactam 1 Gm) 100 mls @ 100 mls/hr IVPB Q12 [facility]; Protocol Stop: 10/08/18 13:01 Last Admin: 10/07/18 10:20 Dose: 100 mls/hr Levothyroxine Sodium (Synthroid) 50 mcg PO 0600 [facility] Last Admin: 10/07/18 05:58 Dose: 50 mcg Lidocaine (Lidoderm) 1 ea TD DAILY [facility] Last Admin: 10/07/18 10:22 Dose: 1 ea Ondansetron HCl (Zofran Inj) 4 mg IVP Q6H PRN PRN Reason: Nausea/Vomiting Last Admin: 10/02/18 15:42 Dose: 4 mg Polyethylene Glycol (Miralax) 17 gm PO BID [facility] Last Admin: 10/07/18 10:23 Dose: 17 gm Tramadol HCl (Ultram) 50 mg PO Q6 [facility] Last Admin: 10/07/18 11:28 Dose: 50 mg Tramadol/Acetaminophen (Ultracet 37.5/325 Mg) 1 tab PO Q6H PRN PRN Reason: Pain, severe (8-10) Last Admin: 10/07/18 08:08 Dose: 1 tab - Labs Labs: 10/07/18 08:20 10/07/18 08:20 PT 11.2 SECONDS (9.4-12.5) 09/30/18 15:04 INR 0.98 09/30/18 15:04 APTT 29.1 Seconds (25.1-36.5) 09/30/18 15:04 Assessment and Plan - Assessment and Plan (Free Text) Plan: Infectious diseases Attending Physician Attestation Patient seen and examined, discussed with medical information officer. I have reviewed the patient's history of present illness, past medical, social, personal and family histories, pertinent physical exam findings, course so far in this hospital admission, pertinent laboratory and imaging results. I agree with the above findings, assessment and plan. continue Azactam day 7 for 10-14 days for compli cated UTI.
[2018-10-07 08:31] LABS: EOS # 0.1 (0.0-0.7); EOS % 1.5 % (1.5-5.0); GRAN # 3.99 (1.4-6.5); GRAN % 54.4 % (50.0-68.0); HEMOGLOBIN 14.1 g/dL (12.0-16.0); LYMPH # 2.3 (1.2-3.4); LYMPH % 31.8 % (22.0-35.0); MEAN CELL VOLUME 91.3 fl (80.0-105.0); MEAN CORPUSCULAR HEMOGLOBIN 30.1 pg (25.0-35.0); MEAN CORPUSCULAR HGB CONC 32.9 g/dl (31.0-37.0); MEAN PLATELET VOLUME 10.1 fl (7.0-11.0); MONO # 0.9 (0.1-0.6); MONO % 12.3 % (1.0-6.0); RBC 4.69 10^6/uL (3.5-6.1); RED CELL DISTRIBUTION WIDTH 13.5 % (11.5-14.5); WHITE BLOOD COUNT 7.3 10^3/uL (4.5-11.0)
[2018-10-07 08:45] LABS: ALB/GLOB RATIO 1.1 (1.1-1.8); ALBUMIN 3.8 g/dL (3.0-4.8); CALCIUM 8.9 mg/dL (8.4-10.5)
[2018-10-07] MEDS: Aztreonam 1 Gm in NS 100mL 100 ML IVPB SCH ×2 (10:20→21:38)
[2018-10-07] MEDS: Lidocaine 5% Patch TD SCH (10:22)
[2018-10-07] MEDS: POLYETHYLENE GLYCOL 3350 17 GM/Dose PACKET PO SCH ×2 (10:23→17:44)
[2018-10-07] MEDS ORDERED: Magnesium Citrate Oral SOL (300 ml) PO ONE (10:55)
--- NOTE | 2018-10-07 11:22 | CP.PCM.PCO ---
Physician Communication Note - Physician Communication Note Physician Communication Note: reviewed mri. left AICA infarct causing right side weakness, needs Rehab.
[2018-10-08] MEDS: Levothyroxine 50 MCG TAB PO SCH (06:00)
--- NOTE | 2018-10-08 08:41 | PN ---
DATE: 10/07/2018 SUBJECTIVE: The patient is 83 years old, seen and examined, complaining of constipation, otherwise same. PHYSICAL EXAMINATION: VITAL SIGNS: She is afebrile. Pulse 67, respirations 20 and blood pressure 132/78. LUNGS: Bilateral fair airflow. No rhonchi or crackle. HEART: S1 and S2, audible. ABDOMEN: Soft, obese, nontender. No rebound. No guarding. NEUROLOGIC: The patient is awake, alert, oriented and communicative. EXTREMITIES: Right upper extremity is 2/5 and left is 4/5 and right lower extremity motor is 1/5 and left is 4/5. No leg edema. LABORATORY DATA: WBC is 7.3, hemoglobin 14, hematocrit 42 and platelets of 217. Chemistry; sodium 135, potassium 4.2, chloride 102, CO2 of 28, BUN 39, creatinine 1.1. Blood sugar of 100. Blood culture and urine cultures are negative. ASSESSMENT: 1. Left anterior cerebral artery territory infarct causing right sided-weakness lower extremity more than the right extremity. 2. Degenerative disc disease. 3. Hypertension. 4. Hypothyroidism. PLAN: So plan is currently the patient is on intravenous antibiotics and we will give her analgesic. We will give her magnesium citrate and reach out to social media marketing analyst, will make arrangements for acute rehab either [facility] or [facility]. Norberto Ambrose MD
--- NOTE | 2018-10-08 08:49 | CP.PCM.PN ---
<Queta Mccall - Last Filed: 10/08/18 15:25> Subjective - Date & Time of Evaluation Date of Evaluation: 10/08/18 Time of Evaluation: 08:47 - Subjective Subjective: ID progress note PGY-[address] Sorto Pt participated in occupational therapy yesterday but too tired for physical therapy. Pt was sad today because she could not function as she used to. Emotional support provided Objective - Vital Signs/Intake and Output Vital Signs (last 24 hours): Temp Pulse Resp BP Pulse Ox 97.5 F L 76 20 121/68 96 10/08/18 08:39 10/08/18 08:39 10/08/18 08:39 10/08/18 08:39 10/08/18 08:39 Intake and Output: 10/08/18 10/08/18 06:59 18:59 Intake Total 0 Balance 0 - Medications Medications: Current Medications Acetaminophen (Tylenol 325mg Tab) 650 mg PO Q6H PRN PRN Reason: Fever >100.4 F Last Admin: 10/03/18 10:27 Dose: 650 mg Atorvastatin Calcium (Lipitor) 40 mg PO DIN [facility] Last Admin: 10/07/18 17:44 Dose: 40 mg Clopidogrel Bisulfate (Plavix) 75 mg PO DAILY [facility] Last Admin: 10/07/18 10:23 Dose: 75 mg Docusate Sodium (Colace) 100 mg PO BID [facility] Last Admin: 10/07/18 17:43 Dose: 100 mg Famotidine (Pepcid) 20 mg PO 1000 [facility] Last Admin: 10/07/18 10:23 Dose: 20 mg Hydrochlorothiazide (Hydrodiuril) 25 mg PO DAILY [facility] Last Admin: 10/07/18 10:22 Dose: 25 mg Aztreonam (Azactam 1 Gm) 100 mls @ 100 mls/hr IVPB Q12 [facility]; Protocol Stop: 10/08/18 13:01 Last Admin: 10/07/18 21:38 Dose: 100 mls/hr Levothyroxine Sodium (Synthroid) 50 mcg PO 0600 [facility] Last Admin: 10/08/18 06:00 Dose: 50 mcg Lidocaine (Lidoderm) 1 ea TD DAILY [facility] Last Admin: 10/07/18 10:22 Dose: 1 ea Ondansetron HCl (Zofran Inj) 4 mg IVP Q6H PRN PRN Reason: Nausea/Vomiting Last Admin: 10/02/18 15:42 Dose: 4 mg Polyethylene Glycol (Miralax) 17 gm PO BID [facility] Last Admin: 10/07/18 17:44 Dose: 17 gm Tramadol HCl (Ultram) 50 mg PO Q6 [facility] Last Admin: 10/08/18 06:01 Dose: Not Given Tramadol/Acetaminophen (Ultracet 37.5/325 Mg) 1 tab PO Q6H PRN PRN Reason: Pain, severe (8-10) Last Admin: 10/07/18 08:08 Dose: 1 tab - Labs Labs: 10/07/18 08:20 10/07/18 08:20 PT 11.2 SECONDS (9.4-12.5) 09/30/18 15:04 INR 0.98 09/30/18 15:04 APTT 29.1 Seconds (25.1-36.5) 09/30/18 15:04 - Constitutional Appears: No Acute Distress - Head Exam Head Exam: ATRAUMATIC, NORMAL INSPECTION, NORMOCEPHALIC - Eye Exam Eye Exam: EOMI, Normal appearance, PERRL. absent: Scleral icterus Pupil Exam: NORMAL ACCOMODATION - ENT Exam ENT Exam: Mucous Membranes Moist - Neck Exam Additional comments: supple - Respiratory Exam Respiratory Exam: Clear to Ausculation Bilateral, NORMAL BREATHING PATTERN. absent: Decreased Breath Sounds - Cardiovascular Exam Cardiovascular Exam: REGULAR RHYTHM, +S1, +S2 - GI/Abdominal Exam GI & Abdominal Exam: Soft, Normal Bowel Sounds. absent: Guarding, Rigid, Tenderness Additional comments: No suprapubic tenderness - Extremities Exam Extremities Exam: absent: Calf Tenderness, Pedal Edema - Back Exam Back Exam: absent: CVA tenderness (L), CVA tenderness (R) - Neurological Exam Neurological Exam: Alert, Awake, Oriented x3 - Psychiatric Exam Psychiatric exam: Depressed - Skin Skin Exam: Dry, Warm Assessment and Plan - Assessment and Plan (Free Text) Plan: Ms Lauren, 83F, with PMH of uterine prolapse with new passary in early September, hx DVT/kidney stone/UTI's, HTN, hypothyroidism, c/o falling to R side, difficulty ambulating, nausea, back pain radiating to legs. Complicated urinary tract infection with pessary, cystitis, possible pyelonephritis Vaginal candidiasis - resolved. Finished diflucan x 3d Acute vs subacute ischemic stroke, now on plavix uterine prolapse with pessary (placed 09/21/18) Chronic pain with opioid-induced constipation, with constipation x 5 days hypothyroidism Allergy to Penicllin, clindamycin, cephalexin, cipro, aspirin Plan - For complicated UTI, continue azactam 1q12 (day _8_) for a total of 10-14 days - For possible stroke, primary team added plavix because pt is allergic to aspirin. Consider adding statin. out of bed to chair. PT/OT. Need Rehab - pain and opioid-induced constipation management per primary Culture: - UCx: Contaminated - VCx: Normal vaginal pamela - G/C: neg - MRI head (10/05): acute vs subacute L PAIGE infarct. No mass effect - CT head (09/30): No acute hemorrhage - Carotid U/S: 20-39% stenosed b/1 s/r/d/w Dr Sorto <Jorje Sorto S - Last Filed: 10/08/18 15:34> Objective - Vital Signs/Intake and Output Vital Signs (last 24 hours): Temp Pulse Resp BP Pulse Ox 97.5 F L 76 20 121/68 96 10/08/18 08:39 10/08/18 08:39 10/08/18 08:39 10/08/18 08:39 10/08/18 08:39 Intake and Output: 10/08/18 10/08/18 06:59 18:59 Intake Total 0 Balance 0 - Medications Medications: Current Medications Acetaminophen (Tylenol 325mg Tab) 650 mg PO Q6H PRN PRN Reason: Fever >100.4 F Last Admin: 10/03/18 10:27 Dose: 650 mg Atorvastatin Calcium (Lipitor) 40 mg PO DIN [facility] Last Admin: 10/07/18 17:44 Dose: 40 mg Clopidogrel Bisulfate (Plavix) 75 mg PO DAILY [facility] Last Admin: 10/08/18 11:49 Dose: 75 mg Docusate Sodium (Colace) 100 mg PO BID [facility] Last Admin: 10/08/18 11:47 Dose: 100 mg Famotidine (Pepcid) 20 mg PO 1000 [facility] Last Admin: 10/08/18 11:48 Dose: 20 mg Hydrochlorothiazide (Hydrodiuril) 25 mg PO DAILY [facility] Last Admin: 10/08/18 11:48 Dose: 25 mg Levothyroxine Sodium (Synthroid) 50 mcg PO 0600 [facility] Last Admin: 10/08/18 06:00 Dose: 50 mcg Lidocaine (Lidoderm) 1 ea TD DAILY [facility] Last Admin: 10/08/18 11:48 Dose: 1 ea Ondansetron HCl (Zofran Inj) 4 mg IVP Q6H PRN PRN Reason: Nausea/Vomiting Last Admin: 10/02/18 15:42 Dose: 4 mg Polyethylene Glycol (Miralax) 17 gm PO BID [facility] Last Admin: 10/08/18 11:48 Dose: 17 gm Tramadol HCl (Ultram) 50 mg PO Q6 [facility] Last Admin: 10/08/18 11:49 Dose: 50 mg Tramadol/Acetaminophen (Ultracet 37.5/325 Mg) 1 tab PO Q6H PRN PRN Reason: Pain, severe (8-10) Last Admin: 10/07/18 08:08 Dose: 1 tab - Labs Labs: 10/07/18 08:20 10/07/18 08:20 PT 11.2 SECONDS (9.4-12.5) 09/30/18 15:04 INR 0.98 09/30/18 15:04 APTT 29.1 Seconds (25.1-36.5) 09/30/18 15:04 Assessment and Plan - Assessment and Plan (Free Text) Plan: Infectious diseases Attending Physician Attestation Patient seen and examined, discussed with medical surgical tech. I have reviewed the patient's history of present illness, past medical, social, personal and family histories, pertinent physical exam findings, course so far in this hospital admission, pertinent laboratory and imaging results. I agree with the above findings, assessment and plan. In addition, continue Azactam (Day 8 of 10-14 days) for this patient with complicated UTI.
[2018-10-08] MEDS: Aztreonam 1 Gm in NS 100mL 100 ML IVPB SCH (11:47)
[2018-10-08] MEDS: POLYETHYLENE GLYCOL 3350 17 GM/Dose PACKET PO SCH (11:48)
[2018-10-08] MEDS: Lidocaine 5% Patch TD SCH (11:48)
[2018-10-08 16:54] VITALS: BP 120/60; PULSE 70; RESP 18; TEMP 97.4; O2SAT 97
--- NOTE | 2018-10-09 08:32 | DS ---
HISTORY OF PRESENT ILLNESS: The patient is 83-year-old who lives with her son. The patient states on 09/30/2018, when she was walking towards the living room she felt like She is weighing towards the right side and she fell, so son called ambulance and she was brought to emergency room. Her initial CAT scan was unremarkable. She did have right-sided weakness very settle that progress with a next 48 hours. So, we had MRI done that shows her left anterior cerebral artery territory infarct. She also complaint of back pain and difficulty walking because her leg given. PAST MEDICAL HISTORY: The patient also has past medical history significant for, 1. Degenerative disc disease. 2. Hypertension. 3. Hyperlipidemia. 4. Hypothyroidism. ALLERGIES: SHE IS ALLERGIC TO AMITRIPTYLINE, ASPIRIN, KEFLEX, CIPRO, GABAPENTIN, OMEPRAZOLE TOMATOES, . The patient was started physical therapy she need acute rehab reach out to the insurance has been approved for acute rehab. So plan is to transfer her to rehab today. PHYSICAL EXAMINATION: GENERAL: She is awake, alert and oriented. Complain of constipation. VITAL SIGNS: She is afebrile. Pulse 76, respiration 20 and blood pressure 121/68. LUNGS: Bilateral fair airflow. No rhonchi or crackle. HEART: S1 and S2, audible. ABDOMEN: Soft and nontender. No rebound. No guarding. NEUROLOGIC: The patient is awake, alert, oriented and communicative. LABORATORY DATA: Sodium 135, potassium 4.2, chloride 102, CO2 of 29, BUN 39, creatinine 1.1 and blood sugar of 100. ASSESSMENT: 1. 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 2. Right hemiparesis. 3. Hypertension. 4. Hyperlipidemia. 5. Hypothyroidism. 6. Urinary tract infection. PLAN: The patient will be discharge today to acute rehab. We will continue her on Plavix and continue her usual medication. We will give her another half bottle of magnesium citrate. She did not have bowel movement in few hours. We will give her fleet enema. Norberto Ambrose MD
== END 2018-10-08 17:27 | DRG 65 ==
LOC: ED 14:17 → ERH 16:45 → 3RSO 20:06
PROVIDERS: ADMIT Internal Medicine; ATTEND Internal Medicine
DX: I63.522 Cerebral infarction due to unspecified occlusion or stenosis of left anterior cerebral artery (principal); G81.91 Hemiplegia, unspecified affecting right dominant side; N12 Tubulo-interstitial nephritis, not specified as acute or chronic; B37.3 Candidiasis of vulva and vagina; E03.9 Hypothyroidism, unspecified; M35.3 Polymyalgia rheumatica; R35.8 Other polyuria; R51 Headache; R11.0 Nausea; M79.604 Pain in right leg; M79.605 Pain in left leg; M43.10 Spondylolisthesis, site unspecified; R29.6 Repeated falls; M54.9 Dorsalgia, unspecified; N81.4 Uterovaginal prolapse, unspecified; Z87.440 Personal history of urinary (tract) infections; Z87.442 Personal history of urinary calculi; K59.03 Drug induced constipation; E78.5 Hyperlipidemia, unspecified; I12.9 Hypertensive chronic kidney disease with stage 1 through stage 4 chronic kidney disease, or unspecified chronic kidney disease; N18.9 Chronic kidney disease, unspecified; E11.22 Type 2 diabetes mellitus with diabetic chronic kidney disease; K21.9 Gastro-esophageal reflux disease without esophagitis; M17.0 Bilateral primary osteoarthritis of knee; M47.9 Spondylosis, unspecified; M48.00 Spinal stenosis, site unspecified; N30.90 Cystitis, unspecified without hematuria; N32.89 Other specified disorders of bladder; N60.11 Diffuse cystic mastopathy of right breast; N60.12 Diffuse cystic mastopathy of left breast; Z79.890 Hormone replacement therapy; Z86.718 Personal history of other venous thrombosis and embolism; Z88.1 Allergy status to other antibiotic agents; Z90.49 Acquired absence of other specified parts of digestive tract; Z91.81 History of falling; M51.36 Other intervertebral disc degeneration, lumbar region; Z88.6 Allergy status to analgesic agent; Z88.8 Allergy status to other drugs, medicaments and biological substances; Z91.018 Allergy to other foods; T40.2X5A Adverse effect of other opioids, initial encounter